=== PATIENT | female | born 1960 | race Caucasian/White ===

== ENCOUNTER 2018-08-10 08:31 | Emergency (ER) | payer MEDICARE, SELFPAY ==
[2018-08-10 08:35] VITALS: BP 141/99; PULSE 118; RESP 20; TEMP 36.9; O2SAT 98
--- NOTE | 2018-08-10 09:00 | DI.CT_ITS ---
SYMPTOM/DIAGNOSIS: DIFFUSE ABD PAIN, DIARRHEA ABDOMEN AND PELVIC CT: CT examination of the abdomen and pelvis was performed with a bolus infusion of 100 cc's of Omnipaque 350. Images obtained through the lung bases are unremarkable. There appears to be mild hepatic steatosis. Spleen is unremarkable in appearance. Pancreas appears normal. No biliary dilatation or gallbladder abnormality is seen. No abdominal or pelvic adenopathy is seen. No significant abdominal wall hernia is seen. Adrenals and kidneys are unremarkable except for apparent incidental small left renal cyst. There is a small quantity of free fluid in the pelvis. There is diffuse colonic wall edema and subtle pericolonic fat edema, particularly in the region of the ascending colon. There is wall edema of the terminal ileum and to a lesser degree possibly portions of additional small bowel as well. The findings are consistent with colitis and enteritis, consider Crohn's disease. Abdominal aorta is of normal diameter and no major vascular abnormality is seen. CONCLUSION: Findings suggesting colitis and enteritis with prominent involvement of the terminal ileum, consider Crohn's disease.
--- NOTE | 2018-08-10 09:05 | W.ED.GENAD ---
Discharge Plan Disposition Patient Disposition: HOME Condition: Improving Discharge Details Chief Complaint: Abd Prob Clinical Impression: Colitis Primary Care Provider: Bunny Anguiano ED Provider: Sarah Cottrell Home Meds and New Rx's Prescriptions: New hydrocodone-acetaminophen 5-325 mg tablet 1 tab PO Q6H PRN (Reason: pain) Qty: 10 RF: 0 Continue omeprazole 20 MG capsule,delayed release(DR/EC) 1 cap PO DAILY RF: 0 Discharge Instructions Instructions: Gastroenteritis (ED), Colitis (ED) Additional Instructions: Drink plenty of fluids and get plenty of rest. Eat a bland diet of crackers, toast, rice, applesauce to help with your diarrhea. You should receive a call from care management regarding a follow-up appointment with your primary care doctor within the next 1-2 days. Return immediately to the emergency department any worsening or new concerning symptoms. Discharge Data Discharge Date/Time-TO BE ENTERED AT DEPARTURE: 08/10/18 12:24 Discharge Physician: Sarah Cottrell Medical Decision Making 57-year-old female who presents with constant crampy diffuse abdominal pain and watery brown diarrhea for the past 2 days. One episode of vomiting. Blood pressure hypertensive, heart rate tachycardic, otherwise vitals within normal limits. Afebrile. Patient appears nontoxic but she is uncomfortable. She has mild distention and diffuse mild to moderate tenderness to palpation. No h/o abdominal surgeries. Likely consistent with acute gastroenteritis. Will obtain a CT, lab work, and urinalysis to r/o acute abd process, bolus IV fluids. Patient cannot take Toradol due to history of ulcers. Will give a dose of morphine and reassess. She has an allergy to oxycodone which causes rash but she has tolerated morphine in past w/o reaction. 1025 -- d/w radiologist Dr. Oconnell -marked wall edema noted throughout colon, specifically terminal ileum likely c/w colitis. If patient has any previous history of frequent diarrhea or abdominal pain, raise concern about possible Crohn's. Pt denied h/o frequent abdominal pain or diarrhea. She states she feels much better, pain decreased from 10/10 to 2/10. Patient will attempt to take PO. Labs reviewed and WBC 14, blood in urine, and trace ketones and high specific gravity likely c/w mild dehydration. No history of fever, recent travel, or bloody diarrhea, so I do not see any indication for antibiotics at this time. 1055 -- pt c/o return of pain upon sitting up. Will give a dose of vicodin - no h/o allergy. 1145 --patient feels much better and she is requesting to go home. She was able to take sips of water and eat crackers. Patient was able to give a stool sample. Will arrange for care management to make an appointment with her primary care doctor within the next few days for reevaluation. Patient instructed to return here if worse. HPI General Mode of arrival: ambulatory. Date/Time Provider Initiated Documentation: 08/10/18 08:44. Limitations to Documentation: no limitations. Information obtained by: patient. HPI Narrative: Patient is a 49-year-old female presents with diffuse constant crampy abdominal pain for the past 2 days. Denies aggravating or alleviating factors. States the pain is currently 10/10. She has been drinking normally but admits to decreased appetite. She states she vomited after drinking milk. She states she is lactose intolerant. She does admit to watery brown diarrhea every 1-2 hours last episode occurring a couple minutes ago here in the ED. She denies any nausea at present. She denies fever, urinary symptoms, rectal bleeding, recent antibiotics, recent travel, recent surgery or sick contacts. He has not taken any medications for her symptoms. Past medical history: Hypertension, hyperlipidemia migraines, PUD Surgical history: Carpal tunnel release, right hip replacement, left shoulder surgery Social history: Smokes tobacco, occasional beer, none recently, denies drugs Medications: Prilosec Allergies: Percocet (rash) PCP: Dr. Anguiano Related Data Home Medications Medication Instructions Recorded Confirmed omeprazole 1 cap PO DAILY 08/14/16 08/10/18 hydrocodone-acetaminophen 1 tab PO Q6H PRN #10 tab 08/10/18 Previous Rx's Medication Instructions Recorded hydrocodone-acetaminophen 1 tab PO Q6H PRN #10 tab 08/10/18 Allergies Allergy/AdvReac Type Severity Reaction Status Date / Time oxycodone HCl [From Percocet] Allergy Unknown Skin Rash Unverified 05/26/18 13:18 banana AdvReac GI upset Unverified 05/26/18 13:18 egg AdvReac GI upset Unverified 05/26/18 13:18 lactose AdvReac GI upset Unverified 05/26/18 13:18 General Stated Complaint: Abd Prob JAYME: 3 Review of Systems Review of Systems All systems reviewed & are unremarkable except as noted in HPI and below Constitutional Denies chills, Denies excessive sweating, Denies fatigue, Denies fever(s), Denies weakness and Denies weight loss Eyes Reports system reviewed and no additional complaints, except as docu and Denies blurry vision ENT Denies vertigo, Denies dizziness, Denies otalgia, Denies nasal congestion, Denies sore throat and Denies throat swelling Cardiovascular Denies chest pain, Denies syncope, Denies rapid heart rate and Denies dyspnea Respiratory Denies dyspnea Gastrointestinal Reports abdominal pain, Reports diarrhea and Reports vomiting Genitourinary Denies hematuria, Denies dysuria and Denies flank pain Musculoskeletal Denies back pain and Denies joint swelling Integumentary/Breasts Denies lesions and Denies rash Neurologic Denies behavioral changes, Denies confusion, Denies vertigo, Denies dizziness, Denies syncope and Denies weakness Psychiatric Denies behavioral changes, Denies confusion and Denies depression Endocrine Denies excessive sweating and Denies fatigue Hematologic/Lymphatic Denies easy bruising and Denies lymphadenopathy Allergic/Immunologic Denies throat swelling [facility] Medical History Arthritis Gastritis Restrictive lung disease Shoulder pain Social History Smoking/Tobacco Use Status: Current every day Surgical History EGD - MAC (08/27/17) Exam Const General: cooperative and healthy appearing Orientation: alert and awake HENCT Head: normal to inspection Ears: hearing grossly normal bilaterally and external ears normal General nose exam: external nose normal Face and sinus: normal facial exam Mouth: oral mucosae normal Eyes General: appearance normal, both eyes and all related structures Eyelids: eyelids normal EOM: EOM intact bilaterally Neck Neck: normal visual inspection Lymphatic: no lymphadenopathy noted Chest Chest: normal inspection of the chest Resp Effort & Inspection: normal respiratory effort and able to speak in complete sentences Auscultation: clear to auscultation bilaterally Cardio Rate: regular rate Rhythm: regular rhythm GI Inspection: normal to inspection and distended (mild) Palpation: soft, not firm, no guarding, no hepatosplenomegaly, no masses and tender (diffuse mild to moderate) Auscultation: hyperactive bowel sounds Skin General skin exam: no rashes or lesions noted Neuro General: alert and awake Cognition: normal cognition Speech: speech normal Gait: normal gait Motor: muscle tone normal throughout Sensory Exam: no sensory deficits noted Extrem General: normal to inspection, full ROM, normal capillary refill and no edema Psych Appearance: grossly normal Mental Status: mental status grossly normal Speech and Movement: speech and movement normal Affect: normal affect Thought Process: normal Course Vital Signs Temperature 98.4 F 08/10/18 08:35 Pulse 118 H 08/10/18 08:35 Respiratory Rate 20 08/10/18 08:35 Blood Pressure 141/99 H 08/10/18 08:35 Pulse Oximetry 98 08/10/18 08:35 Temperature 98.4 F 08/10/18 08:35 Temperature Source Temporal Artery Scan 08/10/18 08:35 Pulse 118 H 08/10/18 08:35 Respiratory Rate 20 08/10/18 08:35 Respiratory Effort 08/10/18 08:41 Blood Pressure 141/99 H 08/10/18 08:35 Blood Pressure Position Sitting 08/10/18 08:35 Pulse Oximetry 98 08/10/18 08:35 Oxygen Delivery Method Room Air 08/10/18 08:35 Oxygen Flow Rate 0 08/10/18 08:35 Pain Level 10 08/10/18 08:35
[2018-08-10] MEDS: Normal Saline 1,000 ML 1000 ML IV (09:09)
--- NOTE | 2018-08-10 09:12 | ED.GENADUL_ITS ---
Discharge Plan Disposition Patient Disposition: HOME Condition: Improving Discharge Details Chief Complaint: Abd Prob Clinical Impression: Colitis Primary Care Provider: Bunny Anguiano ED Provider: Sarah Cottrell Home Meds and New Rx's Prescriptions: New hydrocodone-acetaminophen 5-325 mg tablet 1 tab PO Q6H PRN (Reason: pain) Qty: 10 RF: 0 Continue omeprazole 20 MG capsule,delayed release(DR/EC) 1 cap PO DAILY RF: 0 Discharge Instructions Instructions: Gastroenteritis (ED), Colitis (ED) Additional Instructions: Drink plenty of fluids and get plenty of rest. Eat a bland diet of crackers, toast, rice, applesauce to help with your diarrhea. You should receive a call from care management regarding a follow-up appointment with your primary care doctor within the next 1-2 days. Return immediately to the emergency department any worsening or new concerning symptoms. Discharge Data Discharge Date/Time-TO BE ENTERED AT DEPARTURE: 08/10/18 12:24 Discharge Physician: Sarah Cottrell Medical Decision Making 57-year-old female who presents with constant crampy diffuse abdominal pain and watery brown diarrhea for the past 2 days. One episode of vomiting. Blood pressure hypertensive, heart rate tachycardic, otherwise vitals within normal limits. Afebrile. Patient appears nontoxic but she is uncomfortable. She has mild distention and diffuse mild to moderate tenderness to palpation. No h/o abdominal surgeries. Likely consistent with acute gastroenteritis. Will obtain a CT, lab work, and urinalysis to r/o acute abd process, bolus IV fluids. Patient cannot take Toradol due to history of ulcers. Will give a dose of morphine and reassess. She has an allergy to oxycodone which causes rash but she has tolerated morphine in past w/o reaction. 1025 -- d/w radiologist Dr. Oconnell -marked wall edema noted throughout colon, specifically terminal ileum likely c/w colitis. If patient has any previous history of frequent diarrhea or abdominal pain, raise concern about possible Crohn's. Pt denied h/o frequent abdominal pain or diarrhea. She states she feels much better, pain decreased from 10/10 to 2/10. Patient will attempt to take PO. Labs reviewed and WBC 14, blood in urine, and trace ketones and high specific gravity likely c/w mild dehydration. No history of fever, recent travel, or bloody diarrhea, so I do not see any indication for antibiotics at this time. 1055 -- pt c/o return of pain upon sitting up. Will give a dose of vicodin - no h/o allergy. 1145 --patient feels much better and she is requesting to go home. She was able to take sips of water and eat crackers. Patient was able to give a stool sample. Will arrange for care management to make an appointment with her primary care doctor within the next few days for reevaluation. Patient instructed to return here if worse. HPI General Mode of arrival: ambulatory . Date/Time Provider Initiated Documentation: 08/10/18 08:44 . Limitations to Documentation: no limitations . Information obtained by: patient . HPI Narrative: Patient is a 49-year-old female presents with diffuse constant crampy abdominal pain for the past 2 days. Denies aggravating or alleviating factors. States the pain is currently 10/10. She has been drinking normally but admits to decreased appetite. She states she vomited after drinking milk. She states she is lactose intolerant. She does admit to watery brown diarrhea every 1-2 hours last episode occurring a couple minutes ago here in the ED. She denies any nausea at present. She denies fever, urinary symptoms, rectal bleeding, recent antibiotics, recent travel, recent surgery or sick contacts. He has not taken any medications for her symptoms. Past medical history: Hypertension, hyperlipidemia migraines, PUD Surgical history: Carpal tunnel release, right hip replacement, left shoulder surgery Social history: Smokes tobacco, occasional beer, none recently, denies drugs Medications: Prilosec Allergies: Percocet (rash) PCP: Dr. Anguiano Related Data Home Medications Medication Instructions Recorded Confirmed omeprazole 1 cap PO DAILY 08/14/16 08/10/18 hydrocodone-acetaminophen 1 tab PO Q6H PRN #10 tab 08/10/18 Previous Rx's Medication Instructions Recorded hydrocodone-acetaminophen 1 tab PO Q6H PRN #10 tab 08/10/18 Allergies Allergy/AdvReac Type Severity Reaction Status Date / Time oxycodone HCl [From Percocet] Allergy Unknown Skin Rash Unverified 05/26/18 13: 18 banana AdvReac GI upset Unverified 05/26/18 13:18 egg AdvReac GI upset Unverified 05/26/18 13:18 lactose AdvReac GI upset Unverified 05/26/18 13:18 General Stated Complaint: Abd Prob JAYME: 3 Review of Systems Review of Systems All systems reviewed & are unremarkable except as noted in HPI and below Constitutional Denies chills, Denies excessive sweating, Denies fatigue, Denies fever(s), Denies weakness and Denies weight loss Eyes Reports system reviewed and no additional complaints, except as docu and Denies blurry vision ENT Denies vertigo, Denies dizziness, Denies otalgia, Denies nasal congestion, Denies sore throat and Denies throat swelling Cardiovascular Denies chest pain, Denies syncope, Denies rapid heart rate and Denies dyspnea Respiratory Denies dyspnea Gastrointestinal Reports abdominal pain, Reports diarrhea and Reports vomiting Genitourinary Denies hematuria, Denies dysuria and Denies flank pain Musculoskeletal Denies back pain and Denies joint swelling Integumentary/Breasts Denies lesions and Denies rash Neurologic Denies behavioral changes, Denies confusion, Denies vertigo, Denies dizziness, Denies syncope and Denies weakness Psychiatric Denies behavioral changes, Denies confusion and Denies depression Endocrine Denies excessive sweating and Denies fatigue Hematologic/Lymphatic Denies easy bruising and Denies lymphadenopathy Allergic/Immunologic Denies throat swelling [facility] Medical History Arthritis Gastritis Restrictive lung disease Shoulder pain Social History Smoking/Tobacco Use Status: Current every day Surgical History EGD - MAC (08/27/17) Exam Const General: cooperative and healthy appearing Orientation: alert and awake HENPA Head: normal to inspection Ears: hearing grossly normal bilaterally and external ears normal General nose exam: external nose normal Face and sinus: normal facial exam Mouth: oral mucosae normal Eyes General: appearance normal, both eyes and all related structures Eyelids: eyelids normal EOM: EOM intact bilaterally Neck Neck: normal visual inspection Lymphatic: no lymphadenopathy noted Chest Chest: normal inspection of the chest Resp Effort & Inspection: normal respiratory effort and able to speak in complete sentences Auscultation: clear to auscultation bilaterally Cardio Rate: regular rate Rhythm: regular rhythm GI Inspection: normal to inspection and distended (mild) Palpation: soft, not firm, no guarding, no hepatosplenomegaly, no masses and tender (diffuse mild to moderate) Auscultation: hyperactive bowel sounds Skin General skin exam: no rashes or lesions noted Neuro General: alert and awake Cognition: normal cognition Speech: speech normal Gait: normal gait Motor: muscle tone normal throughout Sensory Exam: no sensory deficits noted Extrem General: normal to inspection, full ROM, normal capillary refill and no edema Psych Appearance: grossly normal Mental Status: mental status grossly normal Speech and Movement: speech and movement normal Affect: normal affect Thought Process: normal Course Vital Signs Temperature 98.4 F 08/10/18 08:35 Pulse 118 H 08/10/18 08:35 Respiratory Rate 20 08/10/18 08:35 Blood Pressure 141/99 H 08/10/18 08:35 Pulse Oximetry 98 08/10/18 08:35 Temperature 98.4 F 08/10/18 08:35 Temperature Source Temporal Artery Scan 08/10/18 08:35 Pulse 118 H 08/10/18 08:35 Respiratory Rate 20 08/10/18 08:35 Respiratory Effort 08/10/18 08:41 Blood Pressure 141/99 H 08/10/18 08:35 Blood Pressure Position Sitting 08/10/18 08:35 Pulse Oximetry 98 08/10/18 08:35 Oxygen Delivery Method Room Air 08/10/18 08:35 Oxygen Flow Rate 0 08/10/18 08:35 Pain Level 10 08/10/18 08:35
[2018-08-10 09:16] LABS: Abs Immature Grans 0.02 k/cumm (0.0-0.09); Absolute Basophil Count 0.01 k/cumm (0.0-0.2); Absolute Lymphocyte Count 0.92 k/cumm (1.2-3.4); Absolute Monocyte Count 0.79 k/cumm (0.11-0.7); Absolute Neutrophil Count 12.42 k/cumm (1.2-6.7); Basophils % 0.1; HGB 16.5 g/dL (12.0-15.5); Immature Grans % 0.1; Lymphocytes % 6.5; Mean Corp. HGB Concentration 33.7 g/dL (32.0-36.0); Mean Corpuscular Hemoglobin 31.3 pg (27.0-33.0); Monocytes % 5.6; Neutrophils % 87.7; Platelet Count 251 x1000/uL (130-400); RBC 5.27 m/cumm (4.00-5.20); RBC Distribution Width 12.6 % (11.7-14.6); White Blood Cell Count 14.16 k/cumm (4.4-10.8)
[2018-08-10 09:18] LABS: Bilirubin Small (Negative); Blood Moderate (Negative); Clarity Cloudy; Glucose Negative (Negative); Ketones Trace mg/dL (Negative); Leukocyte Esterase Negative (Negative); Nitrite Negative (Negative); Specific Gravity >= 1.030 (1.005-1.025); Urobilinogen 0.2 EU/dL (Up TO 0.2)
[2018-08-10 09:25] LABS: Bacteria Moderate HPF (Negative); C & S Indicated? No; Casts Negative LPF (Negative); Crystals Moderate Amorphous HPF (Negative); Epithelial Cells Many HPF (Negative); Mucus Heavy (Negative); RBC >50 (0-2)
[2018-08-10 09:26] LABS: ALT 21 U/L (12-78); AST 14 U/L (15-37); Albumin 3.5 g/dL (3.4-5.0); Alkaline Phosphatase 83 U/L (46-116); Anion Gap 10.1 mmol/L (3-11); BUN 9 mg/dL (7-18); Bilirubin, Total 0.4 mg/dL (0.2-1.0); CO2 27.9 mmol/L (21.0-32.0); CREATININE 0.94 mg/dL (0.55-1.02); Chloride 97 mmol/L (98-107); Glucose 144 mg/dL (70-100); Lipase 101 U/L (73-393); Potassium 3.7 mmol/L (3.5-5.1); Sodium 135 mmol/L (136-145); Total Protein 7.6 g/dL (6.4-8.2)
[2018-08-10] MEDS: Omnipaque 350 MG/ML 100 ML BTL IV (09:46)
[2018-08-10 10:46] VITALS: BP 129/80; PULSE 90; RESP 16; TEMP 37.1; O2SAT 96
--- NOTE | 2018-08-11 10:17 | PDOC.ERCMPRO ---
Care Management Progress Note 08/11-Dr. Cottrell requested assistance with a PCP f/u in the next few days for colitis. Dr. Anguiano is PCP. Referral faxed to [facility].
--- NOTE | 2018-08-11 10:19 | PDOC.ERCMPRO ---
Care Management Progress Note 08/11-Dr. Lynch requested assistance with a surgical f/u this week for an arm pit abscess. Referral faxed to [facility] this am.
--- NOTE | 2018-08-11 10:20 | CMPROGNOTE_ITS ---
Care Management Progress Note 08/11-Dr. Lynch requested assistance with a surgical f/u this week for an arm pit abscess. Referral faxed to [facility] this am.
[2018-08-12 10:56] LABS: Salmonella PCR SEE COMMENTS; Shiga Toxin PCR SEE COMMENTS; Shigella/Enteroinvasive Ecoli SEE COMMENTS
[2018-08-12 11:47] LABS: Campylobacter PCR SEE COMMENTS
== END 2018-08-10 12:24 | disposition home or self-care (01) ==
PROVIDERS: Emergency Provider Physician Assistant; PCP Family Medicine
DX: K52.9 Noninfective gastroenteritis and colitis, unspecified (principal); I10 Essential (primary) hypertension
CPT/HCPCS: 36415; 80053; 83690; 87505; 96361; 96374; 99285; 74177; 81003; 81015; 85025; J3490

== ENCOUNTER 2018-12-06 15:05 | Emergency (ER) | payer MEDICARE, SELFPAY ==
[2018-12-06 15:32] VITALS: BP 134/88; PULSE 80; RESP 16; TEMP 37.1; O2SAT 99
--- NOTE | 2018-12-06 15:52 | W.ED.GENAD ---
Discharge Plan Disposition Patient Disposition: HOME Condition: Stable Discharge Details Chief Complaint: RespSymp Clinical Impression: Cough Primary Care Provider: Bunny Anguiano ED Provider: Jere Lynch Home Meds and New Rx's Prescriptions: New prednisone 20 mg tablet 60 mg PO DAILY 4 Days Qty: 12 RF: 0 Continued omeprazole 20 MG capsule,delayed release(DR/EC) 1 cap PO DAILY RF: 0 hydrocodone-acetaminophen 5-325 mg tablet 1 tab PO Q6H PRN (Reason: pain) Qty: 10 RF: 0 Discharge Instructions Instructions: Acute Cough (ED) Additional Instructions: Follow up with your primary care provider within a week if not better If you feel you are worsening, having more difficulty breathing or high fevers return to the emergency department Medical Decision Making 58 yo female who initially states she has no chronic medical problems but then stated she is on an inhaler, who smokes daily, who comes in with chief complaint of cough for a week. Denies fevers, chest pain/pressure, has had a runny nose. She is speaking in full sentences in no distress with mild wheezing at the bases otherwise no focal findings. no fevers, appears well and has no focal findings so doubt pna at this time. I suspect copd exacerbation given her smoking history, will treat with steroids and abx given increased productive cough. I advised she f/u with her pcp within a week if not improving and return if worsening. She has no chest pain or pressure to suggest entities such as pe, acs or dissection. I did educate that overtime her lungs will worsen with her continued smoking, she became upset with this and didn't want to take my advise of smoking cessation but I did advise if she changes her mind to discuss options with her pcp Differential Diagnosis copd, pna, uri HPI General Mode of arrival: ambulatory. Date/Time Provider Initiated Documentation: 12/06/18 15:47. Limitations to Documentation: no limitations. Information obtained by: patient. History of Present Illness 58 year old F presents to the emergency department with the chief complaint of cough, described as moderate, Patient reports no radiation. Patient started experiencing this week(s) (1) and it has been constant. No relieving factors improve symptom(s), No exacerbating factors reported . Patient did receive the following treatments prior to arrival, none Related Data Home Medications Medication Instructions Recorded Confirmed omeprazole 1 cap PO DAILY 08/14/16 12/06/18 hydrocodone-acetaminophen 1 tab PO Q6H PRN #10 tab 08/10/18 12/06/18 prednisone 60 mg PO DAILY 4 Days #12 tab 12/06/18 Previous Rx's Medication Instructions Recorded hydrocodone-acetaminophen 1 tab PO Q6H PRN #10 tab 08/10/18 prednisone 60 mg PO DAILY 4 Days #12 tab 12/06/18 Allergies Allergy/AdvReac Type Severity Reaction Status Date / Time oxycodone HCl [From Percocet] Allergy Unknown Skin Rash Unverified 12/06/18 15:34 banana AdvReac GI upset Unverified 12/06/18 15:34 egg AdvReac GI upset Unverified 12/06/18 15:34 lactose AdvReac GI upset Unverified 12/06/18 15:34 General Stated Complaint: RespSymp JAYME: 3 Review of Systems Review of Systems All systems reviewed & are unremarkable except as noted in HPI and below Constitutional Denies chills and Denies fever(s) ENT Denies change in voice Cardiovascular Denies chest pain Gastrointestinal Denies abdominal pain, Denies nausea and Denies vomiting Genitourinary Denies dysuria Musculoskeletal Denies joint swelling Integumentary/Breasts Denies rash PFSH Medical History Arthritis Gastritis Restrictive lung disease Shoulder pain Surgical History EGD - MAC (08/27/17) Social History Smoking and Tabacco status: Current every day Exam Const General: no acute distress Orientation: alert [facility] Head: normal to inspection Ears: external ears normal General nose exam: external nose normal Mouth: moist mucous membranes Eyes General: appearance normal, both eyes and all related structures Neck Neck: normal visual inspection Resp Effort & Inspection: normal respiratory effort and able to speak in complete sentences Cardio Rate: regular rate Skin General skin exam: no rashes or lesions noted Neuro General: alert and oriented x3 Extrem General: normal to inspection Psych Mental Status: mental status grossly normal Course Vital Signs Temperature 37.1 C 12/06/18 15:32 Pulse 80 12/06/18 15:32 Respiratory Rate 16 12/06/18 15:32 Blood Pressure 134/88 12/06/18 15:32 Pulse Oximetry 99 12/06/18 15:32 Temperature 37.1 C 12/06/18 15:32 Temperature Source Oral 12/06/18 15:32 Pulse 80 12/06/18 15:32 Respiratory Rate 16 12/06/18 15:32 Respiratory Effort Non-Labored 12/06/18 15:32 Blood Pressure 134/88 12/06/18 15:32 Blood Pressure Position Sitting 12/06/18 15:32 Pulse Oximetry 99 12/06/18 15:32 Oxygen Delivery Method Room Air 12/06/18 15:32 Oxygen Flow Rate 0 12/06/18 15:32 Pain Level 7 12/06/18 15:32
--- NOTE | 2018-12-06 15:57 | ED.GENADUL_ITS ---
Discharge Plan Disposition Patient Disposition: HOME Condition: Stable Discharge Details Chief Complaint: RespSymp Clinical Impression: Cough Primary Care Provider: Bunny Anguiano ED Provider: Jere Lynch Home Meds and New Rx's Prescriptions: New prednisone 20 mg tablet 60 mg PO DAILY 4 Days Qty: 12 RF: 0 Continued omeprazole 20 MG capsule,delayed release(DR/EC) 1 cap PO DAILY RF: 0 hydrocodone-acetaminophen 5-325 mg tablet 1 tab PO Q6H PRN (Reason: pain) Qty: 10 RF: 0 Discharge Instructions Instructions: Acute Cough (ED) Additional Instructions: Follow up with your primary care provider within a week if not better If you feel you are worsening, having more difficulty breathing or high fevers return to the emergency department Medical Decision Making 58 yo female who initially states she has no chronic medical problems but then stated she is on an inhaler, who smokes daily, who comes in with chief complaint of cough for a week. Denies fevers, chest pain/pressure, has had a runny nose. She is speaking in full sentences in no distress with mild wheezing at the bases otherwise no focal findings. no fevers, appears well and has no focal findings so doubt pna at this time. I suspect copd exacerbation given her smoking hist ory, will treat with steroids and abx given increased productive cough. I advised she f/u with her pcp within a week if not improving and return if worsening. She has no chest pain or pressure to suggest entities such as pe, acs or dissection. I did educate that overtime her lungs will worsen with her continued smoking, she became upset with this and didn't want to take my advise of smoking cessation but I did advise if she changes her mind to discuss options with her pcp Differential Diagnosis copd, pna, uri HPI General Mode of arrival: ambulatory . Date/Time Provider Initiated Documentation: 12/06/18 15:47 . Limitations to Documentation: no limitations . Information obtained by: patient . History of Present Illness 58 year old F presents to the emergency department with the chief complaint of cough, described as moderate, Patient reports no radiation. Patient started experiencing this week(s) (1) and it has been constant. No relieving factors improve symptom(s), No exacerbating factors reported . Patient did receive the following treatments prior to arrival, none Related Data Home Medications Medication Instructions Recorded Confirmed omeprazole 1 cap PO DAILY 08/14/16 12/06/18 hydrocodone-acetaminophen 1 tab PO Q6H PRN #10 tab 08/10/18 12/06/18 prednisone 60 mg PO DAILY 4 Days #12 tab 12/06/18 Previous Rx's Medication Instructions Recorded hydrocodone-acetaminophen 1 tab PO Q6H PRN #10 tab 08/10/18 prednisone 60 mg PO DAILY 4 Days #12 tab 12/06/18 Allergies Allergy/AdvReac Type Severity Reaction Status Date / Time oxycodone HCl [From Percocet] Allergy Unknown Skin Rash Unverified 12/06/18 15:34 banana AdvReac GI upset Unverified 12/06/18 15:34 egg AdvReac GI upset Unverified 12/06/18 15:34 lactose AdvReac GI upset Unverified 12/06/18 15:34 General Stated Complaint: RespSymp JAYME: 3 Review of Systems Review of Systems All systems reviewed & are unremarkable except as noted in HPI and below Constitutional Denies chills and Denies fever(s) ENT Denies change in voice Cardiovascular Denies chest pain Gastrointestinal Denies abdominal pain, Denies nausea and Denies vomiting Genitourinary Denies dysuria Musculoskeletal Denies joint swelling Integumentary/Breasts Denies rash PFSH Medical History Arthritis Gastritis Restrictive lung disease Shoulder pain Surgical History EGD - [facility] (08/27/17) Social History Smoking and Tabacco status: Current every day Exam Const General: no acute distress Orientation: alert [facility] Head: normal to inspection Ears: external ears normal General nose exam: external nose normal Mouth: moist mucous membranes Eyes General: appearance normal, both eyes and all related structures Neck Neck: normal visual inspection Resp Effort & Inspection: normal respiratory effort and able to speak in complete sentences Cardio Rate: regular rate Skin General skin exam: no rashes or lesions noted Neuro General: alert and oriented x3 Extrem General: normal to inspection Psych Mental Status: mental status grossly normal Course Vital Signs Temperature 37.1 C 12/06/18 15:32 Pulse 80 12/06/18 15:32 Respiratory Rate 16 12/06/18 15:32 Blood Pressure 134/88 12/06/18 15:32 Pulse Oximetry 99 12/06/18 15:32 Temperature 37.1 C 12/06/18 15:32 Temperature Source Oral 12/06/18 15:32 Pulse 80 12/06/18 15:32 Respiratory Rate 16 12/06/18 15:32 Respiratory Effort Non-Labored 12/06/18 15:32 Blood Pressure 134/88 12/06/18 15:32 Blood Pressure Position Sitting 12/06/18 15:32 Pulse Oximetry 99 12/06/18 15:32 Oxygen Delivery Method Room Air 12/06/18 15:32 Oxygen Flow Rate 0 12/06/18 15:32 Pain Level 7 12/06/18 15:32
[2018-12-06] MEDS: LEVOFLOXACIN 500 MG, LEVOFLOXACIN 250 MG 750 MG PO (16:00)
[2018-12-06] MEDS: predniSONE 20 MG TAB 60 MG PO (16:00)
== END 2018-12-06 16:45 | disposition home or self-care (01) ==
LOC: ER 16:01
PROVIDERS: Emergency Provider Emergency Medicine; PCP Family Medicine
DX: R05 Cough (principal); J98.4 Other disorders of lung; F17.210 Nicotine dependence, cigarettes, uncomplicated
CPT/HCPCS: 99283; J7512

== ENCOUNTER 2019-02-03 00:22 | Emergency (ER) | payer MEDICARE, MEDICAID, SELFPAY ==
[2019-02-03 00:25] VITALS: BP 165/91; PULSE 98; RESP 20; TEMP 36.8; O2SAT 96
--- NOTE | 2019-02-03 00:30 | W.ED.GENAD ---
Discharge Plan Disposition Patient Disposition: HOME Condition: Good Discharge Details Chief Complaint: RespSymp Clinical Impression: COPD exacerbation, Bronchitis Primary Care Provider: Bunny Anguiano ED Provider: Justen Bull Home Meds and New Rx's Prescriptions: New prednisone 50 MG tablet 50 mg PO DAILY Qty: 5 RF: 0 doxycycline hyclate 100 mg capsule 100 mg PO BID Qty: 20 RF: 0 albuterol sulfate 90 mcg/actuation HFA aerosol inhaler 1 puff IH Q6H PRN (Reason: shortness of breath or wheezing) Qty: 8 RF: 0 No Action omeprazole 20 MG capsule,delayed release(DR/EC) 1 cap PO DAILY RF: 0 Restasis 0.05 % Dropperette 1 drp OPHTHALMIC (EYE) Q12H RF: 0 Discharge Instructions Instructions: Acute Bronchitis (ED), COPD (Chronic Obstructive Pulmonary Disease) (ED) Additional Instructions: Please take the doxycycline as directed as well as the steroid prednisone as directed. Please use your inhaler every 4 hours for the next 2 days, after this you can switch to 1-2 puffs every 6 hours if you notice any worsening of your symptoms, or any new symptoms such as vomiting, diarrhea, fever, chills, shortness of breath, chest pain, numbness, weakness, or fainting , please return immediately to the emergency department for reevaluation. Please follow up with your primary care provider as soon as possible for reassessment and reevaluation. As always, it was a pleasure participating in your medical care today. . Referrals: Suzi Irving NP [NURSE PRACTITIONER] - Discharge Data Discharge Date/Time-TO BE ENTERED AT DEPARTURE: 02/03/19 02:20 Medical Decision Making This is a 58-year-old female who presents with 1 week of cough with mild productivity, in conjunction with wheeze, and shortness of breath. Her symptoms have persisted and are not getting better with her inhaler at this time. She also developed a mild amount of bandlike chest pain this evening during notable coughing episodes. Physical exam demonstrates coarse breath sounds, notable wheezes, however vital signs are otherwise notably reassuring. She has no history of cardiac disease. She does still smoke though and does have some cardiac risk factors for sure. Although her signs and symptoms are clinically consistent with a respiratory component rather than ACS will certainly do a cardiac workup in addition to evaluating for and treating for COPD and evaluating for pneumonia. 2:07 AM EKG is benign, laboratory workup demonstrates no elevation in troponin, or other significant abnormality. Chest x-ray shows no severe consolidation, repeat auscultation of her lungs demonstrates notably improved breath sounds, with complete resolution of the wheeze. Vital signs continue to remain reassuring with no tachycardia, hypoxemia, or signs of respiratory distress. I feel the patient signs and symptoms are clinically consistent with a COPD exacerbation in conjunction with probable bronchitis versus mild pneumonia. We will give a prescription for doxycycline, recommend inhaler every 4 hours at home, and outpatient steroids. Signs and symptoms are clinically inconsistent with ACS at this time with normal EKG, troponin, and clinical history consistent with COPD and bronchitis rather than another etiology. With notable improvement of her symptoms with breathing treatments, patient will be discharged home and given her first dose of doxycycline here I have extensively reviewed the treatment plan and discharge instructions with the patient. I have addressed all patient concerns at this time. The patient was made aware of what symptoms to monitor for that would warrant a return to the emergency department. Discussed the plan with the patient, they demonstrate verbal understanding and agreement with our assessment and plan at this time. . EKG 00: 34 Rate 81, intervals normal, sinus rhythm, no ST elevations or depressions, no significant Q waves. Single inverted T wave in V1 FINDINGS: Lungs: Unremarkable. No consolidation. Pleural space: Unremarkable. No pleural effusion. No pneumothorax. Heart/Mediastinum: Unremarkable. No cardiomegaly. Bones/joints: Unremarkable. IMPRESSION: No acute findings. Thank you for allowing us to participate in the care of your patient. Dictated and Authenticated by: Jere Nance MD [facility] General Date/Time Provider Initiated Documentation: 02/03/19 00:22. [facility] Narrative: This is a 58-year-old female with past medical history of COPD, chronic tobacco abuse, who presents today for evaluation of cough, shortness of breath, and mild chest pain. Patient states that for the last week she has had a cough with productive clear sputum that is continued to worsen. She has been taking her inhalers but these have not been helping as of late. Tonight she developed a bandlike chest pain-like sensation, it is nonexertional, it is present with coughing more so in breathing minimally. She denies any hemoptysis, recent long trips, recent surgeries, or history of blood clots. She does not use exogenous estrogen. She denies any vomiting, diarrhea, arm, neck, or shoulder pain. She denies any headache, vision changes, or neck pain. She has no other complaints or modifying factors. She denies any history of cardiac disease. She has not been admitted recently, nor she has she been on antibiotics recently. Related Data Home Medications Medication Instructions Recorded Confirmed omeprazole 1 cap PO DAILY 08/14/16 02/03/19 albuterol sulfate 1 puff IH Q6H PRN #8 gm 02/03/19 cyclosporine [Restasis] 1 drp OPHTHALMIC (EYE) Q12H 02/03/19 02/03/19 doxycycline hyclate 100 mg PO BID #20 cap 02/03/19 prednisone 50 mg PO DAILY #5 tab 02/03/19 Previous Rx's Medication Instructions Recorded albuterol sulfate 1 puff IH Q6H PRN #8 gm 02/03/19 doxycycline hyclate 100 mg PO BID #20 cap 02/03/19 prednisone 50 mg PO DAILY #5 tab 02/03/19 Allergies Allergy/AdvReac Type Severity Reaction Status Date / Time oxycodone HCl [From Percocet] Allergy Unknown Skin Rash Unverified 02/03/19 00:28 banana AdvReac GI upset Unverified 02/03/19 00:28 egg AdvReac GI upset Unverified 02/03/19 00:28 lactose AdvReac GI upset Unverified 02/03/19 00:28 General Stated Complaint: RespSymp JAYME: 3 Review of Systems Review of Systems All systems reviewed & are unremarkable except as noted in HPI and below PFSH Social History Smoking/Tobacco Use Status: Current every day Tobacco Type: cigarettes Alcohol Intake: never Drug use: Never Do you feel safe in your relationship?: Yes Exam Narrative Exam Narrative: 1.Const: Well-nourished, Well-developed, appearing stated age 2.Eyes: PERRL, no conjunctival injection, and symmetrical lids. 3.ENT: Atraumatic external nose and ears. Moist MM. Neck: Symmetric, trachea midline, No thyromegaly. 4.CVS: +S1/S2, No murmurs or gallops. Peripheral pulses 2+ and equal in all extremities. Brisk capillary refill in all extremities. 5.RESP: Reduced breath sounds throughout, notable wheezes throughout. Minimal crackles. No rhonchi. No significant reproducible component of her chest pain 6.GI: Soft, Nontender/Nondistended, No hepatosplenomegaly. No guarding or rebound. 7.MSK: Normocephalic/Atraumatic, Extremities w/o deformity or ttp No cyanosis or clubbing, Normal movement of all extremities 8.Skin: Warm, Dry. No rashes or lesions. 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 Sensation grossly intact, no focal neurologic deficits. 10.Psych: (AAO) x3. Appropriate mood and affect Course Vital Signs Temperature 36.8 C 02/03/19 00:25 Pulse 98 H 02/03/19 00:25 Respiratory Rate 20 02/03/19 00:25 Blood Pressure 165/91 H 02/03/19 00:25 Pulse Oximetry 96 02/03/19 00:25 Temperature 36.8 C 02/03/19 00:25 Temperature Source Skin 02/03/19 00:25 Pulse 98 H 02/03/19 00:25 Respiratory Rate 20 02/03/19 00:25 Blood Pressure 165/91 H 02/03/19 00:25 Blood Pressure Position Sitting 02/03/19 00:25 Pulse Oximetry 96 02/03/19 00:25 Oxygen Delivery Method Room Air 02/03/19 00:25 Oxygen Flow Rate 0 02/03/19 00:25 Pain Level 2 02/03/19 00:25
[2019-02-03] MEDS: Albuterol/Ipratropium 3 ML UPD VIAL 6 ML UPD (00:44)
[2019-02-03] MEDS: methylPREDNISolone SUCC 125 MG VIAL IVP (00:44)
[2019-02-03 00:54] LABS: Abs Immature Grans 0.04 k/cumm (0.0-0.09); Absolute Basophil Count 0.01 k/cumm (0.0-0.2); Absolute Eosinophil Count 0.19 k/cumm (0.0-0.7); Absolute Lymphocyte Count 3.49 k/cumm (1.2-3.4); Absolute Monocyte Count 0.71 k/cumm (0.11-0.7); Absolute Neutrophil Count 3.47 k/cumm (1.2-6.7); Basophils % 0.1; Eosinophils % 2.4; HCO3 (Venous) 27 mmol/L (22-28); HCT 43.5 % (36.0-46.0); HGB 14.6 g/dL (12.0-15.5); Immature Grans % 0.5; Lymphocytes % 44.1; Mean Corp. HGB Concentration 33.6 g/dL (32.0-36.0); Mean Corpuscular Hemoglobin 31.3 pg (27.0-33.0); Mean Corpuscular Volume 93.1 fL (80-95); Mean Platelet Volume 10.5 fL (8.0-11.0); Neutrophils % 43.9; O2 Sat (Venous) 71 % (70-80); Platelet Count 303 x1000/uL (130-400); RBC 4.67 m/cumm (4.00-5.20); RBC Distribution Width 12.9 % (11.7-14.6); TCO2 (Venous) 25 mmol/L (22-29); White Blood Cell Count 7.91 k/cumm (4.4-10.8); pCO2 (Venous) 48 mm/Hg (34-47); pH (Venous) 7.37 (7.32-7.43); pO2 (Venous) 35 mm/Hg (28-44)
[2019-02-03 01:12] LABS: ALT 25 U/L (12-78); AST 15 U/L (15-37); Albumin 3.6 g/dL (3.4-5.0); Alkaline Phosphatase 88 U/L (46-116); Anion Gap 7.8 mmol/L (3-11); BUN 7 mg/dL (7-18); Bilirubin, Total 0.3 mg/dL (0.2-1.0); CO2 28.2 mmol/L (21.0-32.0); CREATININE 0.81 mg/dL (0.55-1.02); Calcium 8.6 mg/dL (8.5-10.1); Chloride 107 mmol/L (98-107); Glucose 137 mg/dL (70-100); Potassium 3.8 mmol/L (3.5-5.1); Sodium 143 mmol/L (136-145); Total Protein 6.7 g/dL (6.4-8.2)
[2019-02-03 01:15] LABS: Troponin I < 0.02 ng/mL (0.00-0.06)
[2019-02-03 01:20] VITALS: BP 138/69; PULSE 89; RESP 20; TEMP 37.3; O2SAT 95
--- NOTE | 2019-02-03 01:40 | DI.RAD_ITS ---
SYMPTOM/DIAGNOSIS: SOB, COUGH,WHEEZE PA AND LATERAL CHEST: Comparison is made with 03/05/17. The heart is normal in size. The lungs are clear. The mediastinal structures and pleura appear intact. CONCLUSION: Normal chest.
[2019-02-03 02:01] VITALS: BP 135/80; PULSE 82; RESP 20; TEMP 37; O2SAT 96
[2019-02-03] MEDS: Doxycycline Hyclate 100 MG CAP PO (02:08)
[2019-02-03] MEDS: Inhaler, Assist Device 1 EACH MC (02:21)
--- NOTE | 2019-02-03 03:19 | DI.VRAD_ITS ---
EXAM: XR Chest, 2 Views EXAM DATE/TIME: 02/03/2019 12:29 AM CLINICAL HISTORY: 58 years old, female; Signs and symptoms; Cough and shortness of breath and wheezing; Patient HX: Cough for a week, SOB, wheeze TECHNIQUE: Imaging protocol: XR of the chest, 2 views. COMPARISON: CR CHEST 2 VIEWS PA,LAT 03/05/2017 10:12 AM FINDINGS: Lungs: Unremarkable. No consolidation. Pleural space: Unremarkable. No pleural effusion. No pneumothorax. Heart/Mediastinum: Unremarkable. No cardiomegaly. Bones/joints: Unremarkable. IMPRESSION: No acute findings. Dictated and Authenticated by: Jere Nance MD. Ordering:MITZY Campuzano MD
== END 2019-02-03 02:20 | disposition home or self-care (01) ==
PROVIDERS: Emergency Provider Student in an Organized Health Care Education/Training Program; PCP Family Medicine
DX: J44.1 Chronic obstructive pulmonary disease with (acute) exacerbation (principal); J44.0 Chronic obstructive pulmonary disease with (acute) lower respiratory infection; F17.210 Nicotine dependence, cigarettes, uncomplicated
CPT/HCPCS: 36415; 80053; 82805; 93005; 94640; 96374; 99285; 71046; 84484; 85025; 93010; J2930; J7620

== ENCOUNTER 2019-04-17 09:21 | Outpatient (CLI) | payer MEDICARE, MEDICAID, SELFPAY ==
[2019-04-17 11:56] LABS: ALT 28 U/L (12-78); AST 15 U/L (15-37); Albumin 3.6 g/dL (3.4-5.0); Alkaline Phosphatase 86 U/L (46-116); Anion Gap 8.1 mmol/L (3-11); BUN 11 mg/dL (7-18); Bilirubin, Total 0.5 mg/dL (0.2-1.0); CO2 29.9 mmol/L (21.0-32.0); CREATININE 0.81 mg/dL (0.55-1.02); Calculated LDL 168; Chloride 108 mmol/L (98-107); Cholesterol 232 mg/dL (50-200); Glucose 95 mg/dL (70-100); HDL Cholesterol 41 mg/dL (40-60); Potassium 4.6 mmol/L (3.5-5.1); Sodium 146 mmol/L (136-145); Total Protein 6.5 g/dL (6.4-8.2); Triglyceride 118 mg/dL (30-150)
== END 2019-04-17 09:41 ==
PROVIDERS: PCP Nurse Practitioner; Visit Provider Nurse Practitioner
DX: E78.5 Hyperlipidemia, unspecified (principal); R73.01 Impaired fasting glucose
CPT/HCPCS: 36415; 80053; 80061; 83721; 83036

== ENCOUNTER 2019-04-27 00:17 | Outpatient (CLI) | payer MEDICARE, MEDICAID, SELFPAY ==
--- NOTE | 2019-04-27 12:56 | DI.MAMMO_ITS ---
SYMPTOM/DIAGNOSIS: SCREENING, Z12.31 MAMMOGRAMS: Mammograms were interpreted according to the usual protocol including computer analysis with CAD system, tomosynthesis and C view imaging. Comparison is made with exam from 2017. The breasts are composed of scattered fibroglandular densities, breast density, Category B. No suspicious or suspicious microcalcifications are seen. There has been no significant change. IMPRESSION: Category 1, negative mammogram. Yearly screening mammography is recommended. [facility] ASSESSMENT OF FINDINGS: Negative. Category 1. Patient will receive a letter notifying them of these results. BI-RADS category B. There are scattered areas of fibroglandular density.
== END 2019-04-27 00:37 ==
PROVIDERS: PCP Nurse Practitioner; Visit Provider Nurse Practitioner
DX: Z12.31 Encounter for screening mammogram for malignant neoplasm of breast (principal)
CPT/HCPCS: 77063; 77067

== ENCOUNTER 2019-05-14 00:55 | Outpatient (CLI) | payer MEDICARE, SELFPAY ==
--- NOTE | 2019-05-14 13:00 | DI.CTLCSR_ITS ---
SYMPTOMS/DIAGNOSIS: SMOKER, F17.210, SCREENING FOR LUNG CANCER LOW DOSE CHEST CT: There are emphysematous changes in the lungs. A 3.5 mm nodule is noted in the apex of the right lung. No other nodules are seen. There is no evidence of a pleural effusion. There is no evidence of hilar or mediastinal adenopathy. The heart is not enlarged. The aorta appears intact. SUMMARY: 3.5 mm right upper lobe nodule. Lung-RAD Category: Lung RADS Category 3- Probably Benign Follow up LDCT in 6 months.
== END 2019-05-14 01:15 ==
PROVIDERS: Visit Provider Nurse Practitioner
DX: F17.200 Nicotine dependence, unspecified, uncomplicated (principal); Z12.2 Encounter for screening for malignant neoplasm of respiratory organs; R91.8 Other nonspecific abnormal finding of lung field; R91.1 Solitary pulmonary nodule
CPT/HCPCS: G0297

== ENCOUNTER → 2019-07-02 08:56 | Outpatient (BNVA) | payer MEDICARE, MEDICAID, SELFPAY | PROVIDERS: PCP Nurse Practitioner; Referring Provider Nurse Practitioner; Visit Provider Physical Therapy Assistant | DX: R13.10 Dysphagia, unspecified (principal); J44.9 Chronic obstructive pulmonary disease, unspecified; I10 Essential (primary) hypertension; F17.210 Nicotine dependence, cigarettes, uncomplicated | CPT/HCPCS: 99213 ==

== ENCOUNTER 2019-07-13 12:01 | Day surgery (SDC) | payer MEDICARE, MEDICAID, SELFPAY ==
--- NOTE | 2019-07-13 06:50 | ENDO_ITS ---
Date of service: 07/13/19 Time of Service: 13:21 Endoscopy Report DATE OF PROCEDURE: 07/13/19 PRE-OP DIAGNOSIS: Dysphagia to solids, colon cancer screening POST-OP DIAGNOSIS: other (Gastritis, Esophagitis, ? Mullen's, Diverticulosis, colorectal polyps, internal and external hemorrhoids) PROCEDURE: 1. EGD with bx 2. Colonoscopy with polypectomy SURGEON: Gabby Woods ANESTHESIA: other (General/ ASA3 /Wilber Travis, CLERICAL ORDER FILLER) ESTIMATED BLOOD LOSS: 5 PATHOLOGY: other (GAstric and GE junction bx, ascending polyp) COMPLICATIONS: None DISPOSITION: same day INDICATIONS: Mrs Pinto is a pleasant 58 year old female who was seen in the office for a sccreening colonoscopy. Her last Colonoscopy was 10 years ago. She also has had dysphagia to solids. An EGD was recommended. Risks, benefits and complications have been reviewed. Complications include but are not limited to bleeding, pain, perforation, missed small lesion/polyp, sore throat, aspiration and adverse reaction to the medications. Questions were entertained and answered to their satisfaction and they wished to proceed. No guarantees were given or implied. PREP: Miralax/Dulcolax PROCEDURE START TIME: 13:21 PROCEDURE END TIME: 14:02 COLONOSCOPY RETRACTION TIME: 16 minutes FINDINGS: Upper- moderate gastritis and esophagitis Lower- one small polyp, dieverticulosis and internal and external hemorrhoids PROCEDURE DESCRIPTION: After informed consent was obtained the patient was take to the procedure room and placed in a supine position. Monitors were applied and a time out was done. The patients name, date of , procedure type, allergies to medications and metal in their body was reviewed. A bite block was placed and the patient was sedated. Once sedated and comfortable the gastroscope was advanced through the oropharynx which was grossly normal into the esophagus. The proximal and mid- esophagus were normal. There was normal peristalsis noted. In the distal esophagus there was inflammation noted as well as an irregular GE junction and findings suspicious for Mullen's. The scope was advanced into the stomach and through the pylorus into the 3rd portion of the duodenum. The duodenum was noted to be normal. The scope was retracted back into the stomach and biopsies were done to rule out H. pylori. There were no ulcers. The scope was retro- flexed. The cardia and fundus were noted have inflammation and there was old blood noted. The scope was retracted back into the esophagus and biopsies were done of the GE junction to rule out Mullen's. The Z line was irregular. There was inflammation and islands of tissue. The GE junction was at 38 cm. While the patient was still sedated they were placed in a left decubitous position. A rectal exam was done. External exam revealed Grade 2 external Hemorrhoids. Internal exam revealed a normal sphincter tone and no palpable masses. The scope was then introduced and retro-flexed. Grade 1 internal hemorrhoids were identified. The scope was then advanced to the cecum without difficulty. The TI and appendiceal orifice were identified. The prep was adequate. The colonoscopy was difficult due to the patients coughing throughout the procedure. The scope was then slowly retracted over 16 minutes back into the rectum. The scope was removed and the patient was woken up and taken back to Same day surgery in stable condition. The patient tolerated the procedure well and there were no immediate complications. Follow up: 3 years for the next colonoscopy
--- NOTE | 2019-07-13 06:52 | W.PM.DSUDISC ---
Discharge Plan Disposition Patient Disposition: HOME Condition: Good Discharge Details Reason For Visit: Colonoscopy and EGD Attending Provider: Gabby Woods Primary Care Provider: Suzi Irving Home Meds and New Rx's Prescriptions: Continued clotrimazole 1 % cream 1 applic TP BID PRNRF: 0 ranitidine HCl 150 mg capsule 150 mg PO QHS Qty: 30 RF: 5 lisinopril 10 mg tablet 10 mg PO DAILY Qty: 30 RF: 6 Restasis 0.05 % Dropperette 1 drp OPHTHALMIC (EYE) Q12H RF: 0 albuterol sulfate 90 mcg/actuation HFA aerosol inhaler 1 puff IH Q6H PRN (Reason: shortness of breath or wheezing) Qty: 8 RF: 0 omeprazole 40 mg capsule,delayed release(DR/EC) 40 mg PO HS RF: 0 Discontinued polyethylene glycol 3350 17 gram/dose powder 238 g PO ONCE Qty: 238 RF: 0 bisacodyl [Dulcolax (bisacodyl)] 5 mg tablet,delayed release (DR/EC) 5 mg PO ONCE Qty: 4 RF: 0 Discharge Instructions Instructions: Colonoscopy (DC), Upper Endoscopy (DC), Diverticulosis (DC), Diet for Stomach Ulcers and Gastritis (GEN), Gastritis (DC), Esophagitis (DC) Additional Instructions: Findings: Inflammation in the stomach and esophagus small polyp and diverticulosis in the large bowel Other: Increase Omeprazole to 2 times a day. YOU NEED TO STOP SMOKING OR YOU WILL NOT GET BETTER AND END UP WITH CANCER Follow up: 3 years for colonoscopy Please call if you develop: fevers >101.5 Nausea or Vomiting Abdominal pain that is not transient DAY SURGERY UNIT POST ENDOSCOPY INSTRUCTIONS 1. Because there will be medication in your system for the next 24 hours, you may feel a little sleepy. Your coordination will be affected. Therefore: a. Do not drive or operate dangerous equipment for 24 hours. b. Do not drink alcohol beverages for 24 hours (not even beer). c. Plan to go home and rest for the day. 2. Generally there are no restrictions on your activity after a day or so has gone by, but you may feel a bit fatigued for a few days. 3 After you arrive home you may have a light meal and return to a normal diet as you can tolerate it without feeling sick to your stomach. 4. After surgery, you may feel pain or discomfort. This should be only transient, but if it persists please contact your doctor. 5. If there are any questions regarding the findings of your procedure, please feel free to contact your doctor. 6. If you are unable to contact your doctor with a problem, contact the hospital at [phone]. 7. Continue all your regular medications unless directed otherwise. I understand the above instructions and have no questions. Signature of Patient or Responsible Adult Escort Date/Time Name of Responsible Adult Escort Signature of Nurse Date/Time Activity:: Activity as Tolerated Diet:: LOW ACID AND HIGH FIBER Discharge Orders Discharge Orders: Discharge Order (Routine); Ordered 07/13/19 Ordered By: Gabby Woods DS: Diagnosis Discharge Diagnosis (1) S/P colonoscopy: Status: Acute (2) Diverticulosis: Status: Acute (3) Hemorrhoids: Status: Acute
[2019-07-13 12:13] VITALS: BP 125/90; PULSE 88; RESP 16; TEMP 37; O2SAT 98
[2019-07-13] MEDS: Lactated Ringers 1,000 ML 80 ML IV (12:42)
--- NOTE | 2019-07-13 13:25 | STOM_PTH ---
PATIENT: Lisa Pinto LOC: [facility] U#:[id number] AGE/SX: 58/F ROOM: RE07/13/[address]: Gabby Woods MD : 1960 BED: DIS: 07/13/2019 SPEC #: [id number] RECD: 07/13/19 18:21 STATUS: JORDAN REQ #: [id number] NITHIN: 07/13/19 13:[address]: Gabby Woods DEPT: Surgical Specimen RECD BY: Ira Mixon ENTERED: 07/13/19 18:22 SP TYPE: STOMACH OTHR DR: Suzi Irving APRN Tissues: 1 - STOMACH BIOPSY 2 - ESOPHAGUS BIOPSY 3 - BIOPSY BOWEL Procedures: GROSS AND MICRO LEVEL 4 Comments: [id number]
[2019-07-13] MEDS: Albuterol/Ipratropium 3 ML UPD VIAL (13:48)
[2019-07-13 14:31] VITALS: BP 147/99; PULSE 70; RESP 16; TEMP 36.7; O2SAT 97
== END 2019-07-13 14:45 | disposition home or self-care (01) ==
LOC: SUR 12:01
PROVIDERS: PCP Nurse Practitioner; Visit Provider Surgery
PROC: (CPT 43239; principal; 2019-07-13 13:15)
DX: R13.10 Dysphagia, unspecified (principal); Z12.11 Encounter for screening for malignant neoplasm of colon; K31.89 Other diseases of stomach and duodenum; D12.2 Benign neoplasm of ascending colon; K29.70 Gastritis, unspecified, without bleeding; K20.9 Esophagitis, unspecified; K57.30 Diverticulosis of large intestine without perforation or abscess without bleeding; K64.1 Second degree hemorrhoids
CPT/HCPCS: 43239; 45380; 88305; J7620

== ENCOUNTER 2019-11-16 00:17 | Outpatient (CLI) | payer MEDICARE, MEDICAID, SELFPAY ==
--- NOTE | 2019-11-16 13:38 | DI.CT_ITS ---
EXAM: CT CHEST WO CLINICAL HISTORY: RUL NODULE. REPEAT RECOMMENDED FOR OCTOBER 2019, TOBACCO USE, F17.200, R91.1 TECHNIQUE: Noncontrast chest CT was obtained to follow previously noted 3-4 millimeter in diameter r ight apical intrapulmonary nodule. This was noted on prior study of May 14, 2019. COMPARISON: CT CHEST LUNG CANCER SCREEN from 05/14/2019 FINDINGS: This nodule is again seen and unchanged from the prior study. No new intrapulmonary nodule seen. Ti ny pleural-based right basilar lung nodules. No mediastinal or hilar adenopathy. No pleural effusio n. Tracheobronchial tree appears intact. Mild apical subpleural emphysema and scattered subpleural and centrilobular emphysema noted. Images obtained through the upper abdomen show unremarkable appearance of visualized portions of live r, spleen, pancreas, adrenals, and kidneys. IMPRESSION: Stable 3-4 millimeter right upper lobe intrapulmonary nodule. Follow-up low-dose lung cancer screeni ng chest CT suggested 12 months.
== END 2019-11-16 00:37 ==
PROVIDERS: PCP Nurse Practitioner; Visit Provider Nurse Practitioner
DX: R91.1 Solitary pulmonary nodule (principal); F17.200 Nicotine dependence, unspecified, uncomplicated; J43.8 Other emphysema
CPT/HCPCS: 71250

== ENCOUNTER 2020-01-07 13:49 | Outpatient (CLI) | payer MEDICARE, MEDICAID, SELFPAY ==
--- NOTE | 2020-01-07 11:30 | DI.RAD_ITS ---
EXAM: XR CHEST 2V PA LATERAL CLINICAL HISTORY: Cough, SOB, TOBACCO USE, R06.02, R05, F17.200 TECHNIQUE: 2D digital imaging was performed. COMPARISON: No exams were available for comparison FINDINGS: MEDIASTINUM: Normal. HEART: Normal. PULMONARY VASCULATURE: Normal. LUNGS: Clear. PLEURAL SPACE: No pleural effusion or pneumothorax. BONE:Normal. OTHER FINDINGS:Hardware in the lower cervical spine. IMPRESSION: No acute pulmonary findings. DATA REPOSITORY: RADIATION DOSE DELIVERED:
== END 2020-01-07 14:09 ==
PROVIDERS: PCP Nurse Practitioner; Visit Provider Nurse Practitioner
DX: R06.02 Shortness of breath (principal); R05 Cough; F17.200 Nicotine dependence, unspecified, uncomplicated
CPT/HCPCS: 71046

== ENCOUNTER 2020-08-18 01:58 | Outpatient (CLI) | payer MEDICARE, MEDICAID, SELFPAY ==
--- NOTE | 2020-08-18 07:00 | DI.US_ITS ---
EXAM: US ABDOMEN CLINICAL HISTORY: Distension, fluid vs. gas,r14.0 TECHNIQUE: Ultrasound abdomen performed using standard protocol. COMPARISON: CT CT ABDOMEN PELVIS W from 08/10/2018 FINDINGS: LIVER: Mildly diffusely increased echogenicity and mild enlargement with cephalo caudad measurements 18 cm. No focal liver lesions are seen.. GALLBLADDER: No evidence of cholelithiasis. No evidence of wall thickening. No pericholecystic fluid identified. PAVON'S SIGN: Negative. BILIARY SYSTEM: No intrahepatic or extrahepatic biliary ductal dilation. KIDNEYS: Kidneys are symmetric in size. No evidence of renal calculi. No evidence of hydronephrosis. No renal mass or cyst identified. Column of Juan [place] incidentally noted on the right. PANCREAS: Normal where visualized. SPLEEN: Not enlarged. ABDOMINAL AORTA AND IVC: Visualized portions normal caliber. ASCITES: None seen. IMPRESSION: [id number] hepatic steatosis. Normal appearing gallbladder.. DATA REPOSITORY:
== END 2020-08-18 02:18 ==
PROVIDERS: PCP Nurse Practitioner; Visit Provider Family Medicine
DX: K76.0 Fatty (change of) liver, not elsewhere classified (principal); R14.0 Abdominal distension (gaseous)
CPT/HCPCS: 76700

== ENCOUNTER 2020-10-18 01:16 | Outpatient (CLI) | payer MEDICARE, SELFPAY ==
--- NOTE | 2020-10-18 08:15 | DI.MAMMO_ITS ---
EXAM: MG MAMMO SCREENING CLINICAL HISTORY: screening,Z12.39 TECHNIQUE: Bilateral full field digital CC and MLO mammographic images were obtained with 3D tomosyn thesis and utilizing computer aided detection (CAD). COMPARISON: Available for comparison. FINDINGS: Masses/Architectural Distortion: None seen. Microcalcifications: No suspicious pleomorphic-type are seen. Skin Thickening/Nipple Retraction: None. IMPRESSION: 1. No significant interval change with no specific features of malignancy noted. 2. Unless there is more urgent need, screening mammography is recommended, as per [employer] guidelines. BI-RADS Category 1 - Negative Breast Density - Category B - Scattered areas of fibroglandular density A negative radiographic report should not delay biopsy if a dominant or clinically suspicious mass is present. Up to ten percent of cancers are not identified on mammography. A negative report may reinforce clinical impression. Adenosis and dense breasts may obscure an underlying neoplasm. False positive reports average 6 to 10%. Patient will receive a letter notifying them of these results.
== END 2020-10-18 01:36 ==
PROVIDERS: PCP Nurse Practitioner; Visit Provider Nurse Practitioner
DX: Z12.31 Encounter for screening mammogram for malignant neoplasm of breast (principal)
CPT/HCPCS: 77063; 77067

== ENCOUNTER 2020-10-19 02:01 | Outpatient (CLI) | payer MEDICARE, SELFPAY ==
[2020-10-19 09:36] LABS: HCT 45.7 % (36.0-46.0); HGB 14.9 g/dL (11.2-15.7); MCH 31.2 pg (27.0-33.0); MCHC 32.6 % (32.0-36.0); MCV 95.6 fL (80-95); MPV 10.9 fL (8.0-11.0); Platelet Count 293 10^3/uL (130-400); RBC 4.78 10^6/uL (3.93-5.22); RDW 12.4 % (11.7-14.6); RDW-SD 43.9 fL; WBC 8.29 10^3/uL (4.4-10.8)
[2020-10-19 10:32] LABS: ALT 26 U/L (14-59); AST 11 U/L (15-37); Albumin 3.7 g/dL (3.4-5.0); Alkaline Phosphatase 76 U/L (46-116); Anion Gap 5.3 mmol/L (3-11); BUN 10 mg/dL (7-18); Bilirubin, Total 0.6 mg/dL (0.2-1.0); CO2 31.7 mmol/L (21.0-32.0); CREATININE 0.89 mg/dL (0.55-1.02); Calcium 8.8 mg/dL (8.5-10.1); Calculated LDL 155 mg/dL (<100); Chloride 105 mmol/L (98-107); Cholesterol 231 mg/dL (<200); Glucose 94 mg/dL (74-106); HDL Cholesterol 49 mg/dL (40-60); Potassium 4.4 mmol/L (3.5-5.1); Sodium 142 mmol/L (136-145); Total Protein 6.5 g/dL (6.4-8.2); Triglyceride 135 mg/dL (<150)
== END 2020-10-19 02:21 ==
PROVIDERS: PCP Nurse Practitioner; Visit Provider Nurse Practitioner
DX: I10 Essential (primary) hypertension (principal); F17.200 Nicotine dependence, unspecified, uncomplicated; R20.8 Other disturbances of skin sensation
CPT/HCPCS: 36415; 80053; 80061; 85027

== ENCOUNTER 2020-10-25 00:39 | Outpatient (CLI) | payer MEDICARE, MEDICAID, SELFPAY ==
--- NOTE | 2020-10-25 09:35 | DI.MRI_ITS ---
EXAM: MR BRAIN WO CLINICAL HISTORY: Dizziness approx 6 weeks,LIGHTHEADED,R42,R51.9. TECHNIQUE: Multiplanar multisequence MRI of the brain was performed. CONTRAST MATERIAL: Noncontrast COMPARISON: No exams were available for comparison FINDINGS: Exam is mildly limited by patient motion. VENTRICLES AND EXTRA AXIAL SPACES: Normal in size and morphology for the patient's age. HEMORRHAGE: None. CEREBRAL PARENCHYMA: No focus of restricted diffusion to suggest acute infarct. No space-occupying le vickie identified. Few scattered high signal foci are seen in the white matter consistent with sequela of minimal microvascular disease. MIDLINE SHIFT: None. BRAINSTEM/CEREBELLUM: Normal. CALVARIUM: Normal. VISUALIZED PARANASAL SINUSES/MASTOIDS: Clear. OTHER FINDINGS: Vascular flow voids are intact. The orbits are unremarkable. The pituitary is rossy l in size. IMPRESSION: Unremarkable MRI of the brain. DATA REPOSITORY:
== END 2020-10-25 00:59 ==
PROVIDERS: PCP Nurse Practitioner; Visit Provider Nurse Practitioner
DX: R42 Dizziness and giddiness (principal); R51.9 Headache, unspecified
CPT/HCPCS: 70551

== ENCOUNTER 2021-01-16 11:58 | Outpatient (REF) | payer OTHER, SELFPAY ==
--- NOTE | 2021-01-16 12:00 | PAPFT_PTH ---
PATIENT: Lisa Pinto LOC: [facility] U#:[id number] AGE/SX: 60/F ROOM: RE01/16/[address]: Suzi Irving APRN : 1960 BED: DIS: 01/16/2021 SPEC #: [id number] RECD: 01/16/21 17:51 STATUS: JORDAN REQ #: [id number] NITHIN: 01/16/21 12:[address]: Suzi Irving DEPT: [facility] Cytology RECD BY: Ira Mixon Tissues: 1 - CX/ENDOCX FOR PAP SMEARS Procedures: PAP THIN PREP/[facility] Screening HPV DNA PROBE Comments: [id number]
== END 2021-01-16 11:59 | disposition home or self-care (01) ==
LOC: LBN 11:58
PROVIDERS: PCP Nurse Practitioner; Visit Provider Nurse Practitioner
DX: Z12.4 Encounter for screening for malignant neoplasm of cervix (principal); Z11.51 Encounter for screening for human papillomavirus (HPV)
CPT/HCPCS: 88142; 87624

== ENCOUNTER 2021-01-26 03:21 | Outpatient (CLI) | payer OTHER, SELFPAY ==
[2021-01-27 10:18] LABS: Varicella IgG Antibody Positive (See Note)
== END 2021-01-26 03:22 | disposition home or self-care (01) ==
LOC: LBO 03:21
PROVIDERS: PCP Nurse Practitioner; Visit Provider Nurse Practitioner
DX: Z01.84 Encounter for antibody response examination (principal); I10 Essential (primary) hypertension
CPT/HCPCS: 36415; 86787

== ENCOUNTER → 2021-02-14 08:16 | Outpatient (BNVA) | payer OTHER, SELFPAY | PROVIDERS: PCP Nurse Practitioner; Referring Provider Otolaryngology; Visit Provider Psychiatry & Neurology Neurology | DX: R42 Dizziness and giddiness (principal) | CPT/HCPCS: 99215 ==

== ENCOUNTER 2021-08-08 16:38 | Outpatient (REF) | payer OTHER, SELFPAY ==
[2021-08-10 16:40] LABS: COVID-19 RT-PCR UVMMC Result Negative (Negative)
== END 2021-08-08 16:39 | disposition home or self-care (01) ==
LOC: LBO 16:38
PROVIDERS: Family Medicine; PCP Nurse Practitioner; Visit Provider Nurse Practitioner
DX: Z20.822 Contact with and (suspected) exposure to COVID-19 (principal); J20.9 Acute bronchitis, unspecified
CPT/HCPCS: U0003

== ENCOUNTER 2021-08-15 12:52 | Outpatient (CLI) | payer OTHER, SELFPAY ==
--- NOTE | 2021-08-15 11:45 | DI.RAD_ITS ---
Exam(s) XR CHEST 2V PA LATERAL EXAM: XR CHEST 2V PA LATERAL CLINICAL HISTORY: chronic,worsening FONSECA, SOB, cough, WHEEZE, COPD, R05.9, R06.2,R06.02, J44.9 TECHNIQUE: 2D digital imaging was performed of the chest. Two images were obtained. PA and lateral views were obtained. COMPARISON: No exams were available for comparison FINDINGS: MEDIASTINUM: Normal. HEART: Normal. PULMONARY VASCULATURE: Normal. LUNGS: Clear. PLEURAL SPACE: No pleural effusion or pneumothorax. BONE:Within normal limits for the patient's age. OTHER FINDINGS:Normal. IMPRESSION: No acute pulmonary findings. DATA REPOSITORY: RADIATION DOSE DELIVERED:
== END 2021-08-15 13:12 ==
PROVIDERS: PCP Nurse Practitioner; Visit Provider Nurse Practitioner
DX: R05.9 Cough, unspecified (principal); R06.02 Shortness of breath; R06.2 Wheezing; J44.9 Chronic obstructive pulmonary disease, unspecified
CPT/HCPCS: 71046

== ENCOUNTER 2021-09-14 02:18 | Outpatient (CLI) | payer OTHER, SELFPAY ==
[2021-09-14 10:13] LABS: Abs Immature Grans 0.07 10^3/uL (0.0-0.06); Absolute Basophil Count 0.03 10^3/uL (0.0-0.2); Absolute Eosinophil Count 0.19 10^3/uL (0.0-0.7); Absolute Lymphocyte Count 1.73 10^3/uL (1.2-3.4); Absolute Neutrophil Count 4.12 10^3/uL (1.2-6.7); Basophils % 0.4; Eosinophils % 2.7; HCT 44.5 % (36.0-46.0); HGB 14.2 g/dL (11.2-15.7); Lymphocytes % 24.6; MCH 31.1 pg (27.0-33.0); MCHC 31.9 % (32.0-36.0); MCV 97.6 fL (80-95); MPV 10.5 fL (8.0-11.0); Monocytes % 12.8; Neutrophils % 58.5; Nucleated RBC 0 %; Platelet Count 340 10^3/uL (130-400); RBC 4.56 10^6/uL (3.93-5.22); WBC 7.04 10^3/uL (4.4-10.8)
[2021-09-14 11:15] LABS: ALT 30 U/L (14-59); AST 15 U/L (15-37); Albumin 3.6 g/dL (3.4-5.0); Alkaline Phosphatase 90 U/L (46-116); Anion Gap 4.5 mmol/L (3-11); BUN 17 mg/dL (7-18); Bilirubin, Total 0.2 mg/dL (0.2-1.0); CO2 32.5 mmol/L (21.0-32.0); CREATININE 0.8 mg/dL (0.55-1.02); Calculated LDL 161 mg/dL (<100); Chloride 107 mmol/L (98-107); Cholesterol 232 mg/dL (<200); Glucose 89 mg/dL (74-106); HDL Cholesterol 48 mg/dL (40-60); Potassium 4.9 mmol/L (3.5-5.1); Sodium 144 mmol/L (136-145); Total Protein 6.5 g/dL (6.4-8.2); Triglyceride 117 mg/dL (<150)
== END 2021-09-14 02:19 | disposition home or self-care (01) ==
LOC: LBO 02:18
PROVIDERS: PCP Nurse Practitioner; Visit Provider Nurse Practitioner
DX: I10 Essential (primary) hypertension (principal); J45.909 Unspecified asthma, uncomplicated
CPT/HCPCS: 36415; 80053; 80061; 85025

== ENCOUNTER 2022-02-05 01:04 | Outpatient (CLI) | payer OTHER, SELFPAY ==
--- NOTE | 2022-02-05 10:34 | DI.CT_ITS ---
Exam(s) CT CHEST WO EXAM: CT CHEST WO CLINICAL HISTORY: yearly f/u, f/u nodules, r91.1 TECHNIQUE: Imaging Protocol: Axial computed tomography images with coronal and sagittal reformatted images were created and reviewed COMPARISON: CT CT CHEST LUNG CANCER SCREEN from 02/02/2021 FINDINGS: Tracheobronchial tree: Patent where visualized. Mediastinum and Kaylah: No dominant adenopathy or fluid collection. Pulmonary parenchyma: No consolidation or dominant measurable mass. Mild paraseptal emphysematous ch anges at the apices. Lung Nodules: Stable tiny nodule right upper lobe. New nodules. Pleura: No effusion or pneumothorax. Heart: The heart is not dilated. No coronary artery calcifications are seen. Aorta: Thoracic aorta non-dilated. Upper abdomen: Marked hepatic steatosis. Bones: Degenerative disc changes. Soft Tissues: Unremarkable. IMPRESSION: Stable tiny right upper lobe nodule. Lung RADS Cat 2 - Benign Appearance / Behavior: Nodules with a very low likelihood of becoming a clin ically active cancer due to size or lack of growth Lung-RADS 1.0 CATEGORIES: Category 0 - Prior chest CT exam(s) being located for comparison. Category 1 - Annual screening in 12 months. No nodules or definitely benign nodules. Category 2 - Annual screening in 12 months. Benign appearance. Nodules with low likelihood of becomin g active cancer. Category 3 - 6-month follow-up. Probably benign. Short-term follow-up suggested. Nodules with low lik elihood of becoming active cancer. Category 4A - 3-month follow-up and CT/PET if >8 mm in size. Suspicious finding. Findings which requi re additional testing. Category 4B - Findings which require additional testing and tissue sampling. Category 4X - Category 3 or 4 nodules with additional features or imaging findings that increases the suspicion of malignancy. Modifier S- Potentially clinically significant findings (non lung cancer) RADIATION DOSE DELIVERED: 586.74mGy.cm Total DLP CTDIvol 586.74mGy.cm Total DLP DATA REPOSITORY: All CT scans at this facility are submitted to the National Radiology Data Registry (NRDR) Dose Index Registry (DIR) with the [employer] (ACR). RADIATION OPTIMIZATION: All CT scans at this facility use at least one of these dose optimization te chniques: automated exposure control; mA and/or kV adjustment per patient size (includes targeted exa ms where dose is matched to clinical indication); or iterative reconstruction.
== END 2022-02-05 01:24 ==
PROVIDERS: PCP Nurse Practitioner; Visit Provider Nurse Practitioner
DX: R91.1 Solitary pulmonary nodule (principal); J43.8 Other emphysema
CPT/HCPCS: 71250

== ENCOUNTER 2022-12-06 01:51 | Outpatient (CLI) | payer OTHER, SELFPAY ==
[2022-12-06 12:21] LABS: Abs Immature Grans 0.05 10^3/uL (0.0-0.06); Absolute Basophil Count 0.04 10^3/uL (0.0-0.2); Absolute Eosinophil Count 0.17 10^3/uL (0.0-0.7); Absolute Lymphocyte Count 2.27 10^3/uL (1.2-3.4); Absolute Monocyte Count 0.76 10^3/uL (0.1-0.8); Absolute Neutrophil Count 4.73 10^3/uL (1.2-6.7); Basophils % 0.5; Eosinophils % 2.1; HCT 46.4 % (36.0-46.0); HGB 15.3 g/dL (11.2-15.7); Immature Grans % 0.6; Lymphocytes % 28.3; MCH 31.6 pg (27.0-33.0); MCV 96 fL (80-95); MPV 11.4 fL (8.0-11.0); Monocytes % 9.5; Platelet Count 339 10^3/uL (130-400); RBC 4.84 10^6/uL (3.93-5.22); RDW 12.6 % (11.7-14.6); WBC 8.02 10^3/uL (4.4-10.8)
[2022-12-06 12:42] LABS: ALT 25 U/L (14-59); AST 17 U/L (15-37); Albumin 3.8 g/dL (3.4-5.0); Alkaline Phosphatase 91 U/L (46-116); Anion Gap 7.3 mmol/L (3-11); BUN 11 mg/dL (7-18); Bilirubin, Total 0.5 mg/dL (0.2-1.0); CO2 28.7 mmol/L (21.0-32.0); CREATININE 0.8 mg/dL (0.55-1.02); Calcium 9.3 mg/dL (8.5-10.1); Calculated LDL 155 mg/dL (<100); Chloride 103 mmol/L (98-107); Cholesterol 235 mg/dL (<200); Estimated GFR 82.74 (mL/min/1.73m2); Glucose 99 mg/dL (74-106); HDL Cholesterol 50 mg/dL (40-60); Potassium 4.3 mmol/L (3.5-5.1); Sodium 139 mmol/L (136-145); Total Protein 7.1 g/dL (6.4-8.2); Triglyceride 153 mg/dL (<150)
== END 2022-12-06 01:52 | disposition home or self-care (01) ==
LOC: LOS 01:51
PROVIDERS: Family Medicine; PCP Nurse Practitioner; Visit Provider Nurse Practitioner
DX: E78.5 Hyperlipidemia, unspecified (principal); F17.200 Nicotine dependence, unspecified, uncomplicated; I10 Essential (primary) hypertension; R59.1 Generalized enlarged lymph nodes
CPT/HCPCS: 36415; 80053; 80061; 85025

== ENCOUNTER → 2023-07-17 01:09 | Outpatient (CLI) | payer OTHER, SELFPAY ==
--- NOTE | 2023-07-17 08:45 | DI.CT_ITS ---
Exam(s) CT CHEST WO EXAM: CT CHEST WO CLINICAL HISTORY: F/U NODULE RT LUNG, SMOKER, R91.1 TECHNIQUE: Imaging Protocol: Axial computed tomography images with coronal and sagittal reformatted images were created and reviewed. Low dose screening protocol. COMPARISON: CT CT CHEST LUNG CANCER SCREEN from 05/14/[address] CHEST WO from 11/16/[address] CHEST LUNG CANCER SCREEN from 02/02/[address] CHEST WO from 02/05/2022 FINDINGS: Tracheobronchial tree: No bronchiectasis or mucus plugging.. Mediastinum and Kaylah: No dominant adenopathy or fluid collection. Pulmonary parenchyma: No consolidation or dominant measurable mass. Mild emphysematous changes. Lung Nodules: 2-3 millimeter nodule right lung apex is unchanged. No new nodules. Pleura: No effusion. No pneumothorax. Heart: The heart is not dilated. No coronary artery calcifications are seen. Aorta: Thoracic aorta non-dilated. Upper abdomen: Hepatic steatosis. Bones: Unremarkable for age. Degenerative disc changes. Soft Tissues: Unremarkable. IMPRESSION: No suspicious pulmonary nodules. Lung RADS Cat 2 - Benign Appearance / Behavior: Nodules with a very low likelihood of becoming a clin ically active cancer due to size or lack of growth Lung-RADS 1.0 CATEGORIES: Category 0 - Prior chest CT exam(s) being located for comparison. Category 1 - Annual screening in 12 months. No nodules or definitely benign nodules. Category 2 - Annual screening in 12 months. Benign appearance. Nodules with low likelihood of becomin g active cancer. Category 3 - 6-month follow-up. Probably benign. Short-term follow-up suggested. Nodules with low lik elihood of becoming active cancer. Category 4A - 3-month follow-up and CT/PET if >8 mm in size. Suspicious finding. Findings which requi re additional testing. Category 4B - Findings which require additional testing and tissue sampling. Category 4X - Category 3 or 4 nodules with additional features or imaging findings that increases the suspicion of malignancy. Modifier S- Potentially clinically significant findings (non lung cancer) RADIATION DOSE DELIVERED: 511.23mGy.cm Total DLP 511.23mGy.cm Total DLP DATA REPOSITORY: All CT scans at this facility are submitted to the National Radiology Data Registry (NRDR) Dose Index Registry (DIR) with the [employer] (ACR). RADIATION OPTIMIZATION: All CT scans at this facility use at least one of these dose optimization te chniques: automated exposure control; mA and/or kV adjustment per patient size (includes targeted exa ms where dose is matched to clinical indication); or iterative reconstruction.
== END ==
PROVIDERS: PCP Nurse Practitioner; Visit Provider Nurse Practitioner
DX: F17.210 Nicotine dependence, cigarettes, uncomplicated (principal); R91.1 Solitary pulmonary nodule; Z12.2 Encounter for screening for malignant neoplasm of respiratory organs
CPT/HCPCS: 71250

== ENCOUNTER 2024-01-01 04:56 | Outpatient (CLI) | payer OTHER, SELFPAY ==
[2024-01-01 10:04] LABS: Abs Immature Grans 0.02 10^3/uL (0.0-0.06); Absolute Basophil Count 0.03 10^3/uL (0.0-0.2); Absolute Eosinophil Count 0.19 10^3/uL (0.0-0.7); Absolute Lymphocyte Count 2.25 10^3/uL (1.2-3.4); Absolute Monocyte Count 0.61 10^3/uL (0.1-0.8); Absolute Neutrophil Count 4.18 10^3/uL (1.2-6.7); Basophils % 0.4; Eosinophils % 2.6; HCT 46.3 % (36.0-46.0); HGB 15.7 g/dL (11.2-15.7); Immature Grans % 0.3; Lymphocytes % 30.9; MCHC 33.9 % (32.0-36.0); MCV 95 fL (80-95); MPV 10.4 fL (8.0-11.0); Monocytes % 8.4; Neutrophils % 57.4; Platelet Count 290 10^3/uL (130-400); RDW 12.3 % (11.7-14.6); RDW-SD 43.2 fL; WBC 7.28 10^3/uL (4.4-10.8)
[2024-01-01 11:50] LABS: ALT 23 U/L (14-59); AST 9 U/L (15-37); Albumin 3.4 g/dL (3.4-5.0); Alkaline Phosphatase 83 U/L (46-116); Anion Gap 9.5 mmol/L (3-11); Bilirubin, Total 0.4 mg/dL (0.2-1.0); CO2 28.5 mmol/L (21.0-32.0); CREATININE 0.8 mg/dL (0.55-1.02); Calculated LDL 97 mg/dL (<100); Chloride 106 mmol/L (98-107); Cholesterol 167 mg/dL (<200); Estimated GFR 82.23 (mL/min/1.73m2); Glucose 96 mg/dL (74-106); HDL Cholesterol 53 mg/dL (40-60); Potassium 4.4 mmol/L (3.5-5.1); Sodium 144 mmol/L (136-145); Total Protein 6.6 g/dL (6.4-8.2); Triglyceride 88 mg/dL (<150)
[2024-01-01 11:58] LABS: BUN 15 mg/dL (7-18)
== END 2024-01-01 04:57 | disposition home or self-care (01) ==
LOC: LBO 04:56
PROVIDERS: Absent Provider Nurse Practitioner; PCP Nurse Practitioner; Referring Provider Nurse Practitioner; Visit Provider Nurse Practitioner
DX: I10 Essential (primary) hypertension (principal); E78.5 Hyperlipidemia, unspecified; R73.03 Prediabetes
CPT/HCPCS: 36415; 80053; 80061; 85025

== ENCOUNTER → 2024-02-19 11:21 | Outpatient (BNVA) | payer OTHER, MEDICAID, SELFPAY | PROVIDERS: PCP Nurse Practitioner; Referring Provider Nurse Practitioner; Visit Provider Podiatrist | DX: B07.0 Plantar wart (principal); Q82.8 Other specified congenital malformations of skin; L84 Corns and callosities | CPT/HCPCS: 11305; 17110; 99203 ==

== ENCOUNTER → 2024-03-11 11:00 | Outpatient (BNVA) | payer OTHER, MEDICAID, SELFPAY | PROVIDERS: PCP Nurse Practitioner; Referring Provider Nurse Practitioner; Visit Provider Podiatrist | DX: B07.0 Plantar wart; Q82.8 Other specified congenital malformations of skin; L84 Corns and callosities | CPT/HCPCS: 17110; 99213 ==

== ENCOUNTER → 2024-03-16 18:01 | Outpatient (CLI) | payer OTHER, MEDICAID, SELFPAY ==
--- NOTE | 2024-03-16 11:45 | DI.RAD_ITS ---
Exam(s) XR CHEST 2V PA LATERAL EXAM: XR CHEST 2V PA LATERAL CLINICAL HISTORY: Cough for three weeks, acute exacerbation of COPD, J44.1. TECHNIQUE: 2D digital imaging was performed. COMPARISON: CR XR CHEST 2V PA LATERAL from 08/15/2021 FINDINGS: 2 views: Anterior fusion plate lower cervical spine again noted Heart size is normal. The mediastinum is not widened. Lungs are clear on the frontal view. However, on the lateral view there is a nodular infiltrate proj ected over the lower heart shadow. Probably represents atelectasis or infiltrate in the lingular seg ment of the left lung. There are no pleural effusions. IMPRESSION: As seen on the lateral view there is a nodular infiltrate in what is probably the lingular segment of the left lung. This was not evident on the prior lateral view of 08/15/2021 appropriate follow-up r ecommended. DATA REPOSITORY: RADIATION DOSE DELIVERED:
== END ==
PROVIDERS: PCP Nurse Practitioner; Visit Provider Family Medicine
DX: J44.1 Chronic obstructive pulmonary disease with (acute) exacerbation (principal)
CPT/HCPCS: 71046

== ENCOUNTER 2024-04-10 13:20 | Outpatient (CLI) | payer OTHER, MEDICAID, SELFPAY ==
[2024-04-10 13:45] LABS: CREATININE 0.8 mg/dL (0.55-1.02); Estimated GFR 82.23 (mL/min/1.73m2)
== END 2024-04-10 13:21 | disposition home or self-care (01) ==
LOC: LBO 13:20
PROVIDERS: PCP Nurse Practitioner; Visit Provider Family Medicine
DX: R91.1 Solitary pulmonary nodule (principal); Z01.812 Encounter for preprocedural laboratory examination
CPT/HCPCS: 36415; 82565

== ENCOUNTER → 2024-04-27 02:09 | Outpatient (CLI) | payer OTHER, MEDICAID, SELFPAY ==
--- NOTE | 2024-04-27 06:30 | DI.CT_ITS ---
Exam(s) CT CHEST W EXAM: CT CHEST W CLINICAL HISTORY: 3 weeks of cough, new nodule on CXR,r91.1 TECHNIQUE: Imaging Protocol: Axial computed tomography images with coronal and sagittal reformatted images were created and reviewed CONTRAST MATERIAL: Intravenous: Omnipaque 350Contrast volume:80 mL. COMPARISON: CT CT CHEST WO from 07/17/2023 CR XR CHEST 2V PA LATERAL from 03/16/2024 FINDINGS: Tracheobronchial tree: Patent where visualized. No evidence of bronchiectasis. Pulmonary parenchyma: Centrilobular emphysematous changes are present. There is unchanged scarring i n the left lingula. No new infiltrates are seen. No pulmonary nodules are present. Mediastinum and Kaylah: No dominant adenopathy or fluid collection. The esophagus is unremarkable. Thyroid gland: Tiny subcentimeter nodules are seen in the thyroid gland. No follow-up is recommended . Pleura: No effusion or pneumothorax. Heart: The heart is not dilated. No coronary artery calcifications are seen. No pericardial effusion. Aorta: Thoracic aorta non-dilated. Atherosclerotic calcification is present. There is no evidence of dissection. Pulmonary arteries: Due to the timing of the bolus, opacification of the pulmonary arteries is subopt imal for evaluation of pulmonary emboli. Upper abdomen: Left nephrolithiasis. Lymph nodes: Within normal limits. Bones: Within normal limits for the patient's age. Soft tissues: Unremarkable. IMPRESSION: 1. No pulmonary nodules. 2. No acute pulmonary process. 3. Mild centrilobular emphysema. RADIATION DOSE DELIVERED: 492.05mGy.cm Total DLP DATA REPOSITORY: All CT scans at this facility are submitted to the National Radiology Data Registry (NRDR) Dose Index Registry (DIR) with the [employer] (ACR). RADIATION OPTIMIZATION: All CT scans at this facility use at least one of these dose optimization te chniques: automated exposure control; mA and/or kV adjustment per patient size (includes targeted exa ms where dose is matched to clinical indication); or iterative reconstruction.
[2024-04-27] MEDS: Normal Saline - Diluent 50 ML VIAL IJ (08:55)
[2024-04-27] MEDS: Omnipaque 350 MG/ML 500 ML BTL-Imaging package IJ (08:56)
[2024-04-27] MEDS: Normal Saline Flush 10 ML SYR IVP (08:57)
== END ==
PROVIDERS: PCP Nurse Practitioner; Visit Provider Family Medicine
DX: R91.1 Solitary pulmonary nodule (principal)
CPT/HCPCS: 71260

== ENCOUNTER 2024-07-01 10:59 | Observation (INO) | payer OTHER, SELFPAY ==
[2024-07-01 11:01] VITALS: BP 157/97; PULSE 81; RESP 16; TEMP 36.5; O2SAT 96
--- NOTE | 2024-07-01 11:15 | DI.CT_ITS ---
Exam(s) CT ABDOMEN PELVIS W EXAM: CT ABDOMEN PELVIS W CLINICAL HISTORY: epigastric pain TECHNIQUE: Imaging Protocol: Axial computed tomography images with coronal and sagittal reformatted images were created and reviewed. CONTRAST MATERIAL: Intravenous: Omnipaque 350 Contrast volume:100 mL Oral: No COMPARISON: CT CT ABDOMEN PELVIS W from 08/10/2018 FINDINGS: ABDOMEN: Lung Bases: Normal where visualized. Liver: Normal density. There is a stable tiny hypodensity in the left lobe of the liver. It is too s mall for further characterization but likely reflects a small cyst. No suspicious hepatic lesions ar e seen. Portal, Superior Mesenteric, and Splenic Veins: Unremarkable. Gallbladder and Biliary Tract: No radiodense calculus or dilation. Pancreas: Normal density, no abnormal calcifications or inflammatory process. Spleen: Normal. Adrenals: No masses seen. Kidneys: Normal size, contour and axis. There is a 3 mm nonobstructing stone in the upper pole of the left kidney. There are simple left renal cysts. No follow-up is recommended. There is a retroaort ic left renal vein. Abdominal Aorta: Abdominal portion non-dilated. Atherosclerotic calcification is present. Bowel: There are few diverticula in the colon but no evidence of acute diverticulitis. No evidence o f bowel wall thickening or obstruction. No evidence of appendicitis. Peritoneal Cavity: No ascites, collection or mesenteric inflammatory response. No free air. Lymph Nodes: Within normal limits. Bones: Within normal limits for the patient's age. Patient has a right total hip replacement. Soft Tissues: Unremarkable. PELVIS: Bladder: Portions of the urinary bladder are obscured due to artifact from the patient's right total hip replacement. The visualized portions of the urinary bladder are unremarkable. Reproductive Organs: Unremarkable as visualized. Lymph Nodes: Within normal limits. Bones: Within normal limits for the patient's age. IMPRESSION: 1. Colonic diverticulosis without evidence of acute diverticulitis. 2. No evidence of cholelithiasis or biliary ductal dilatation. 3. Left nephrolithiasis. No obstructive uropathy RADIATION DOSE DELIVERED: 406.84mGy.cm Total DLP DATA REPOSITORY: All CT scans at this facility are submitted to the National Radiology Data Registry (NRDR) Dose Index Registry (DIR) with the [employer] (ACR). RADIATION OPTIMIZATION: All CT scans at this facility use at least one of these dose optimization te chniques: automated exposure control; mA and/or kV adjustment per patient size (includes targeted exa ms where dose is matched to clinical indication); or iterative reconstruction.
--- NOTE | 2024-07-01 11:15 | RT.EKG_ITS ---
APPROVED REPORT Exam: Resting ECG Reason for Exam: epigastric pain Patient Location: E HR:66 bpm ECG Measurements Heart Rate 66 AXIS [place] 162 P 66 QRSd 92 QRS 39 QT 406 T 57 QTc 425 Conclusion Sinus rhythm...normal P axis, V-rate 60- 99 sinus rhtyhm, normal axis, normal intervls, non ischemic
[2024-07-01] MEDS: Normal Saline 1,000 ML 1000 ML IV (11:46)
[2024-07-01 11:54] LABS: Abs Immature Grans 0.02 10^3/uL (0.0-0.06); Absolute Basophil Count 0.03 10^3/uL (0.0-0.2); Absolute Eosinophil Count 0.03 10^3/uL (0.0-0.7); Absolute Lymphocyte Count 0.71 10^3/uL (1.2-3.4); Absolute Monocyte Count 0.76 10^3/uL (0.1-0.8); Absolute Neutrophil Count 6.02 10^3/uL (1.2-6.7); Basophils % 0.4 %; Eosinophils % 0.4 %; HCT 49.4 % (36.0-46.0); HGB 16.6 g/dL (11.2-15.7); Immature Grans % 0.3 %; Lymphocytes % 9.4 %; MCH 31.8 pg (27.0-33.0); MCHC 33.6 % (32.0-36.0); MCV 95 fL (80-95); MPV 10.5 fL (8.0-11.0); Neutrophils % 79.5 %; Platelet Count 278 10^3/uL (130-400); RBC 5.22 10^6/uL (3.93-5.22); RDW 12.1 % (11.7-14.6); RDW-SD 42.4 fL; WBC 7.57 10^3/uL (4.4-10.8)
[2024-07-01] MEDS: Ondansetron 4 MG/2 ML VIAL IVP (11:58)
[2024-07-01] MEDS: MORPHine 4 MG/ML SYR IVP (11:58)
[2024-07-01 12:14] LABS: ALT 979 U/L (14-59); Alkaline Phosphatase 230 U/L (46-116); Anion Gap 7.5 mmol/L (3-11); BUN 6 mg/dL (7-18); Bilirubin, Total 1.88 mg/dL (0.2-1.0); CO2 27.5 mmol/L (21.0-32.0); CREATININE 0.8 mg/dL (0.55-1.02); Chloride 105 mmol/L (98-107); Estimated GFR 82.23 (mL/min/1.73m2); Glucose 117 mg/dL (74-106); Lipase 42 U/L (16-77); Potassium 4.2 mmol/L (3.5-5.1); Sodium 140 mmol/L (136-145); Total Protein 7.6 g/dL (6.4-8.2)
[2024-07-01 12:33] LABS: COVID-19 PCR Negative (Negative); Influenza A PCR Negative (Negative); Influenza B PCR Negative (Negative); RSV PCR Negative (Negative)
[2024-07-01 12:34] LABS: Source Nasopharynx
[2024-07-01 12:41] LABS: AST 957 U/L (15-37); Calcium 9.8 mg/dL (8.5-10.1); Troponin I < 50 ng/L (< or =60)
[2024-07-01] MEDS: MORPHine 10 MG/ML VIAL 6 MG IVP (12:54)
[2024-07-01] MEDS: Omnipaque 350 MG/ML 100 ML BTL IJ (13:11)
[2024-07-01] MEDS: Normal Saline - Diluent 50 ML VIAL IJ (13:13)
--- NOTE | 2024-07-01 13:25 | DI.RAD_ITS ---
Exam(s) XR CHEST 2V PA LATERAL EXAM: XR CHEST 2V PA LATERAL CLINICAL HISTORY: hypoxia. TECHNIQUE: 2D digital imaging was performed. COMPARISON: CT CT CHEST WO from 07/17/[address] CHEST W from 04/27/2024 FINDINGS: 2 views: Lowered fusion plate in the lower cervical spine is again noted. Heart size is normal. The mediastinum is not widened. Right lung is clear. Mild increased markings in the lingular segment of the left lung are again note d, again noted be more prominent on the lateral view. As per CT scan of 04/27/2024 this is a benign appearing unchanged finding which was apparently also evident on CT scan of 07/17/2023. this has not increased in size. There are no pleural effusions. IMPRESSION: No acute pulmonary findings.Stable benign-appearing increased markings in the inferior lingular segme nt of the left lung. DATA REPOSITORY: RADIATION DOSE DELIVERED:
[2024-07-01] MEDS: Normal Saline 1,000 ML 80 ML IV (13:51)
[2024-07-01] MEDS: HYDROmorphone 2 MG/ML SYR 1 MG IVP (13:58)
[2024-07-01 13:59] VITALS: BP 195/101; PULSE 81; RESP 21; O2SAT 96
--- NOTE | 2024-07-01 15:10 | W.PC.ACHO ---
Registration Status: Primary Language: Preferred Language: ED Information & Data Chief Complaint Abd Prob 07/01/24 11:08 Chief Complaint Abd Prob 07/01/24 11:01 Triage Note Pt c/o crampy abd pain, 07/01/24 11:01 bloating, n/v (once today) that started on . Pt states she at cake w eggs and thought maybe it was d/ t being lactose intolerant. 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 No abd surgeries in the past. No sick contacts. Medical / Surgical History (Last Reviewed 03/11/24 @ 11:21 by Donita Rios DPM) Tobacco abuse GERD (gastroesophageal reflux disease) Ulcer Multiple environmental allergies Hypertension Hyperlipidemia Restrictive lung disease Gastritis Arthritis Shoulder pain (Last Reviewed 03/11/24 @ 11:21 by Donita Rios DPM) History of tonsillectomy Hx of shoulder surgery S/P colonoscopy History of esophagogastroduodenoscopy (EGD) (~07/13/19) History of colonoscopy (~07/13/19) History of neck surgery History of carpal tunnel release History of hip replacement EGD - MAC (08/27/17) Most Recent Vital Signs Temperature 36.5 C 07/01/24 11:01 Temperature Source Temporal Artery Scan 07/01/24 11:01 Pulse 81 07/01/24 13:59 Respiratory Rate 21 07/01/24 13:59 Respiratory Effort Normal 07/01/24 11:08 Blood Pressure 195/101 H 07/01/24 13:59 Blood Pressure Position Sitting 07/01/24 11:01 Pulse Oximetry 96 07/01/24 13:59 Oxygen Delivery Method Room Air 07/01/24 13:59 Oxygen Flow Rate 0 07/01/24 13:59 Pain Level 10 07/01/24 11:01 Allergies Influenza Virus Vaccines Allergy (Severe, Verified 07/01/24 11:07) stomach cramps oxycodone HCl (From Percocet) Allergy (Unknown, Verified 07/01/24 11:07) Skin Rash erythromycin base (From Erythrocin) Adverse Reaction (Intermediate, Verified 07/01/24 11:07) Diarrhea banana Adverse Reaction (Verified 07/01/24 11:07) GI upset egg Adverse Reaction (Verified 07/01/24 11:07) GI upset lactose Adverse Reaction (Verified 07/01/24 11:07) GI upset Other Allergy (Intermediate, Uncoded 07/01/24 11:07) h/o diverticulitis Cannot eat anything with seeds Blocks small intestine - Hx of diverticulitis Active Medications Generic Name Dose Route Start Last Admin Trade Name Freq PRN Reason Stop Dose Admin Sodium Chloride 1,000 mls @ 80 mls/hr 07/01/24 13:45 07/01/24 13:51 Saline 1000ml Bag IV 80 mls/hr INFUSION KIRSTY Administration Iohexol 100 ml 07/01/24 13:15 07/01/24 13:11 Omnipaque 350 Mg/Ml 100 Ml Btl IJ 07/31/24 23:59 100 ml DIRECTED KIRSTY Administration Sodium Chloride 50 ml 07/01/24 13:15 07/01/24 13:13 Normal Saline - Diluent 50 Ml Vial IJ 50 ml .FOR DI USE KIRSTY Administration IV IV Catheter Type [Left Peripheral IV Antecubital] IV Catheter Gauge [Left 18 Antecubital] Diet Orders Category Date Time Status Nothing Per Oral [DIET] Nutrition 07/01/24 Lunch Active Diagnostics 07/01/24 07/01/24 07/01/24 Range/Units 14:24 11:50 11:46 WBC (4.4-10.8) 10^3/uL RBC (3.93-5.22) 10^6/uL Hgb (11.2-15.7) g/dL Hct (36.0-46.0) % MCV (80-95) fL MCH (27.0-33.0) pg MCHC (32.0-36.0) % RDW (11.7-14.6) % Plt Count (130-400) 10^3/uL MPV (8.0-11.0) fL Immature Gran % % Neutrophils % % Lymphocytes % % Monocytes % % Eosinophils % % Basophils % % Nucleated RBC % (0.0-0.3) % Absolute Neutrophils (1.2-6.7) 10^3/uL Absolute Lymphocytes (1.2-3.4) 10^3/uL Absolute Monocytes (0.1-0.8) 10^3/uL Absolute Eosinophils (0.0-0.7) 10^3/uL Absolute Basophils (0.0-0.2) 10^3/uL Sodium Potassium Chloride Carbon Dioxide Anion Gap BUN Creatinine Est GFR (CKD-EPI 2020) Glucose Calcium Total Bilirubin AST ALT Alkaline Phosphatase Troponin I High Sens Cancelled (< or =60) ng/L Total Protein Albumin Lipase Cancelled (16-77) U/L COVID-19 Source Nasopharynx SARS-CoV-2 (PCR) Negative (Negative) Influenza Type A (PCR) Negative (Negative) Influenza Type B (PCR) Negative (Negative) RSV (PCR) Negative (Negative) 07/01/24 07/01/24 Range/Units 11:46 11:26 WBC 7.57 (4.4-10.8) 10^3/uL RBC 5.22 (3.93-5.22) 10^6/uL Hgb 16.6 H (11.2-15.7) g/dL Hct 49.4 H (36.0-46.0) % MCV 95 (80-95) fL MCH 31.8 (27.0-33.0) pg MCHC 33.6 (32.0-36.0) % RDW 12.1 (11.7-14.6) % Plt Count 278 (130-400) 10^3/uL MPV 10.5 (8.0-11.0) fL Immature Gran % 0.3 % Neutrophils % 79.5 % Lymphocytes % 9.4 % Monocytes % 10.0 % Eosinophils % 0.4 % Basophils % 0.4 % Nucleated RBC % 0.0 (0.0-0.3) % Absolute Neutrophils 6.02 (1.2-6.7) 10^3/uL Absolute Lymphocytes 0.71 L (1.2-3.4) 10^3/uL Absolute Monocytes 0.76 (0.1-0.8) 10^3/uL Absolute Eosinophils 0.03 (0.0-0.7) 10^3/uL Absolute Basophils 0.03 (0.0-0.2) 10^3/uL Sodium 140 Cancelled Potassium 4.2 Cancelled Chloride 105 Cancelled Carbon Dioxide 27.5 Cancelled Anion Gap 7.5 Cancelled BUN 6 L Cancelled Creatinine 0.8 Cancelled Est GFR (CKD-EPI 2020) 82.23 Cancelled Glucose 117 H Cancelled Calcium 9.8 Cancelled Total Bilirubin 1.88 H Cancelled AST 957 H Cancelled ALT 979 H Cancelled Alkaline Phosphatase 230 H Cancelled Troponin I High Sens < 50 (< or =60) ng/L Total Protein 7.6 Cancelled Albumin 4.0 Cancelled Lipase 42 (16-77) U/L COVID-19 Source SARS-CoV-2 (PCR) (Negative) Influenza Type A (PCR) (Negative) Influenza Type B (PCR) (Negative) RSV (PCR) (Negative) Intake and Output - 24 Hour Total 07/01/24 10:59 thru 07/01/24 15:05 Intake Total 1010 Output Total 300 Balance 710 Weight 71.214 kg Intake: IV 1010 Output: Urine 300 Other: Urine Color Yellow Urine Appearance Clear Urine Odor Normal Falls Risk Assessment History of Falls No History 07/01/24 11:08 Contributing Factors No Factors 07/01/24 11:08 Ambulatory Aids Independent 07/01/24 11:08 Tubes/Lines None 07/01/24 11:08 Gait Evaluation No gait disturbance 07/01/24 11:08 Cognition No cognitive impairment 07/01/24 11:08 Fall Total Score 0 07/01/24 11:08 Level of Risk Standard/Low Risk 07/01/24 11:08 v v v v v v v v v Sending and/or Receiving Nurses: Please use comment section below to note any information pertinent to the patient hand-off not included above. Information / Comments: Report received at 1422; pt to [facility] floor room 215. Pt's at bedside. Report received from: GRIFFIN Jeronimo RN
[2024-07-01 15:11] VITALS: BP 172/96; PULSE 74; RESP 22; TEMP 36.8; O2SAT 94
[2024-07-01] MEDS: LORazepam 2 MG/ML VIAL 1 MG IVP (16:30)
[2024-07-01] MEDS: Lactated Ringers 1,000 ML 75 ML IV (16:38)
[2024-07-01] MEDS: Normal Saline Flush 10 ML SYR IVP (16:38)
--- NOTE | 2024-07-01 17:02 | W.PM.HP.N ---
Date of service: 07/01/24 Time of Service: 17:02 Assessment and Plan Assessment and plan (1) Hepatitis: Status: Acute Assessment and plan: Although some of the elements here do seem consistent with biliary colic, the absence of any secondary signs of cholecystitis on her CT scan is pretty remarkable. Furthermore, the elevation of the ALT and AST are quite surprising relative to the mild elevation in the total bilirubin. Common bile duct appeared a little bit dilated to be on the CT scan, but the MRCP shows no evidence of any common bile duct obstruction, nor are there any stones within the gallbladder. It seems a little atypical for patient to develop spontaneous acalculous cholecystitis, but she does have pretty significant COPD, so I suppose that could put her at risk for it. Even with a calculus cholecystitis, however, I would not expect such a significant rise in the transaminases. For now, we will repeat some of the liver function test, and send off an acute hepatitis panel (although she has no significant risk factors for an acute hepatitis infection) and set her up for a HIDA scan in the morning. With a normal white blood cell count and temperature, I do not think there is any benefit to adding antibiotics at this point, but I will certainly have a low threshold for that if she develops any signs of sepsis. History of Present Illness History of Present Illness Chief Complaint: abdominal pain Narrative: Lisa is 63 years old. She comes to the emergency department today with 4 to 5 days of increasing abdominal discomfort. It started as some mild mid epigastric fullness, that developed into a sense of bloating or constipation. She took some stool softeners, and had some bowel movements, but the discomfort started to evolve into a pain in her mid epigastrium that radiated around the right and left sides towards her back. It felt fairly central. It sounds like maybe food made it worse. She developed nausea today, but has not had any episodes of vomiting. She came to the emergency department, and had a mild elevation of her bilirubin, as well as increased AST and ALT. She underwent a CT scan that was basically normal, followed up with MRCP because I had some concerns of biliary ductal dilatation. MRCP showed a little bit of Oneil cholecystic fluid, but no evidence of any stones within the common duct or the cystic duct. Review of Systems Constitutional Constitutional: Reports body ache(s), Reports fatigue, Denies fever(s) and Reports lethargy Eyes Eyes: Reports system reviewed and no additional complaints, except as documented ENT Ears, Nose, Mouth, and Throat: Reports system reviewed and no additional complaints, except as documented Cardiovascular Cardiovascular: Denies chest pain and Denies dyspnea Respiratory Respiratory: Denies chest congestion, Reports cough, Denies dyspnea and Reports wheezing Gastrointestinal Gastrointestinal: Reports abdominal pain, Reports bloating, Reports constipation, Reports nausea and Denies vomiting Genitourinary Genitourinary: Reports system reviewed and no additional complaints, except as documented Musculoskeletal Musculoskeletal: Reports myalgias Psychiatric Psychiatric: Reports system reviewed and no additional complaints, except as documented Endocrine Endocrine: Reports fatigue Hematologic/Lymphatic Hematologic/Lymphatic: Denies easy bleeding and Denies easy bruising Allergic/Immunologic Allergic/Immunologic: Reports wheezing PFSH All Active Problems (Updated 07/01/24 @ 18:09 by Scott Gilbert MD) Hepatitis (Acute) Lung nodule seen on imaging study (Acute) Acute exacerbation of chronic obstructive pulmonary disease (Acute) Corns and callosities (Acute) Porokeratosis (Acute) Plantar verruca (Acute) Dermatitis (Acute ~12/2022) 01/23/23 DH Derm, Punch BX done 03/04/23 F/U Derm Pityriasis lichenoides (Acute) Lymphadenopathy (Acute) Pre-diabetes (Acute) Tinnitus, right (Acute) Dysfunction of right eustachian tube (Acute) SOB (shortness of breath) (Acute) Wheeze (Acute) Cough (Acute) Vertigo (Acute) Osteoarthritis of left hip (Acute) Left hip pain (Acute) Nausea (Acute) Lightheaded (Acute) Headache (Acute) Dizziness (Acute) Gastric peptic ulcer (Acute) Pt says she cannot tolerate any NSAIDs Asthmatic bronchitis (Acute) Cough (Acute) Sinusitis (Acute) Hemorrhoids (Acute) Diverticulosis (Acute) Trochanteric bursitis, right hip (Acute 03/31/18) Numbness of right anterior thigh (Acute 03/19/16) Chronic hip pain after total replacement of right hip joint (Acute 12/18/17) Adhesive capsulitis of left shoulder (Acute 04/23/16) Dysphagia (Acute) Nodule of right lung (Acute) Right apex 3.5 mm. f/u CT due October 2019 HTN (hypertension), benign (Acute) Tobacco use disorder (Acute) Osteoarthritis of right hip (Acute) Medical History Tobacco abuse GERD (gastroesophageal reflux disease) Ulcer Multiple environmental allergies Hypertension Hyperlipidemia Restrictive lung disease Gastritis Arthritis Shoulder pain Surgical History History of tonsillectomy Hx of shoulder surgery S/P colonoscopy History of esophagogastroduodenoscopy (EGD) (~07/13/19) History of colonoscopy (~07/13/19) Tubular adenoma History of neck surgery History of carpal tunnel release History of hip replacement EGD - MAC (08/27/17) Family History Father Cancer of bone Leukemia Mother COPD (chronic obstructive pulmonary disease) Diabetes Hypertension Brother Lung cancer Stage 3 A Social History Smoking/Tobacco Use Status: Current every day Tobacco Type: cigarettes Smoking packs per day: 0.5 Smoking cigarettes per day: 10.0 Quit status: considering quitting Smoking risk assessment performed?: Yes Alcohol Intake: current Alcohol Intake frequency: holidays/special occasions only Alcohol type: beer Details: OCCASIONALLY Drug use: Never Substance use type: does not use Counseling given: No Adopted: No Household members: spouse Housing: house Number of Children: 3 number of grandchildren: 2 Communication Needs: Corrective Lenses Do you need help understanding health information?: Never current occupation: Disabled Pets and animals: Yes Pets and animals: cat(s) and bird(s) Sexually active: No Do you think of yourself as: straight/heterosexual Current gender identity: female What is your relationship status?: How often do you talk on the phone with friends or family?: three or more times per week How often do you get together with friends or relatives?: once per week How often do you attend yazidi or congregation services?: decline to answer Panel score (0-1 are the most socially isolated patients): 2 What type of physical activity do you participate in: none Special stephanie needs: No Seatbelt use: always Drive 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 ride w/intox 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 Working smoke detector in home: Yes Fire extinguisher in home: Yes Carbon monox detector in home: Yes Firearms in home: No Do you feel safe at home: Yes Do you feel safe in your relationship?: Yes Additional Social history: unable to talk privately Meds Allergies and Home Medications Allergies Allergy/AdvReac Type Severity Reaction Status Date / Time Influenza Virus Vaccines Allergy Severe stomach Verified 07/01/24 11:07 cramps oxycodone HCl (From Percocet) Allergy Unknown Skin Rash Verified 07/01/24 11:07 erythromycin base (From AdvReac Intermediate Diarrhea Verified 07/01/24 11:07 Erythrocin) banana AdvReac GI upset Verified 07/01/24 11:07 egg AdvReac GI upset Verified 07/01/24 11:07 lactose AdvReac GI upset Verified 07/01/24 11:07 Other Allergy Intermediate h/o Uncoded 07/01/24 11:07 diverticulitis Home Medications ?Medication ?Instructions ?Recorded ?Confirmed ?Type nebulizers (Compact Compressor #1 ea 01/07/20 06/24/24 Rx Nebulizer) fluticasone fur. 100 mcg-umeclid 1 inh inhalation DAILY #60 ea 02/19/22 07/01/24 Rx 62.5 mcg-vilant 25 mcg inhalat.powder (Trelegy Ellipta) fexofenadine [Janeth] PO DAILY 03/05/23 06/24/24 History fluocinonide 0.05 % topical 1 applic topical HS PRN 06/25/23 07/01/24 History solution albuterol sulfate 2.5 mg/3 mL 2.5 mg (3 mL) inhalation QID PRN 09/27/23 07/01/24 Rx (0.083 %) solution for nebulization shortness of breath or wheezing #180 mL albuterol sulfate 90 mcg/actuation 2 puff inhalation 6XD PRN 09/27/23 07/01/24 Rx aerosol inhaler (ProAir HFA) shortness of breath or wheezing #18 grams atorvastatin 40 mg tablet 40 mg PO QPM #90 tabs 06/24/24 07/01/24 Rx famotidine 20 mg tablet 20 mg PO DAILY #90 tabs 06/24/24 07/01/24 Rx lisinopril 30 mg tablet 30 mg PO DAILY #90 tabs 06/24/24 07/01/24 Rx omeprazole 40 mg capsule,delayed 40 mg PO DAILY #90 caps 06/24/24 07/01/24 Rx release Exam Const General: cooperative and comfortable Orientation: alert, awake and oriented x3 HENMT Head: normal to inspection Neck Neck: normal visual inspection, full ROM and no lymphadenopathy Resp Effort & Inspection: normal respiratory effort, audible wheezes and no use of accessory muscles Auscultation: wheezes Cardio Rate: regular rate Rhythm: regular rhythm Heart Sounds: S1 normal and S2 normal GI Inspection: normal to inspection and non-distended Palpation: soft, no guarding and nontender Percussion: normal to percussion Auscultation: normal bowel sounds Results Labs 07/01/24 11:46 07/01/24 11:46 Labs: Laboratory Results - last 24 hr 07/01/24 07/01/24 07/01/24 11:26 11:46 11:46 WBC 7.57 RBC 5.22 Hgb 16.6 H Hct 49.4 H MCV 95 MCH 31.8 MCHC 33.6 RDW 12.1 Plt Count 278 MPV 10.5 Immature Gran % 0.3 Neutrophils % 79.5 Lymphocytes % 9.4 Monocytes % 10.0 Eosinophils % 0.4 Basophils % 0.4 Nucleated RBC % 0.0 Absolute Neutrophils 6.02 Absolute Lymphocytes 0.71 L Absolute Monocytes 0.76 Absolute Eosinophils 0.03 Absolute Basophils 0.03 Sodium Cancelled 140 Potassium Cancelled 4.2 Chloride Cancelled 105 Carbon Dioxide Cancelled 27.5 Anion Gap Cancelled 7.5 BUN Cancelled 6 L Creatinine Cancelled 0.8 Est GFR (CKD-EPI 2020) Cancelled 82.23 Glucose Cancelled 117 H Calcium Cancelled 9.8 Total Bilirubin Cancelled 1.88 H AST Cancelled 957 H ALT Cancelled 979 H Alkaline Phosphatase Cancelled 230 H Troponin I High Sens < 50 Total Protein Cancelled 7.6 Albumin Cancelled 4.0 Lipase 42 Cancelled COVID-19 Source SARS-CoV-2 (PCR) Influenza Type A (PCR) Influenza Type B (PCR) RSV (PCR) 07/01/24 07/01/24 11:50 14:24 WBC RBC Hgb Hct MCV MCH MCHC RDW Plt Count MPV Immature Gran % Neutrophils % Lymphocytes % Monocytes % Eosinophils % Basophils % Nucleated RBC % Absolute Neutrophils Absolute Lymphocytes Absolute Monocytes Absolute Eosinophils Absolute Basophils Sodium Potassium Chloride Carbon Dioxide Anion Gap BUN Creatinine Est GFR (CKD-EPI 2020) Glucose Calcium Total Bilirubin AST ALT Alkaline Phosphatase Troponin I High Sens Cancelled Total Protein Albumin Lipase COVID-19 Source Nasopharynx SARS-CoV-2 (PCR) Negative Influenza Type A (PCR) Negative Influenza Type B (PCR) Negative RSV (PCR) Negative Last Vital Signs Temp 98.2 F 07/01/24 15:11 Pulse 74 07/01/24 15:11 Resp 22 07/01/24 15:11 BP 172/96 H 07/01/24 15:11 Pulse Ox 94 07/01/24 15:11 Time Spent Time spent with Patient: >75 minutes Time was spent: preparing to see the patient(eg.review tests), ordering medications,tests, procedures, referring, communicating with other health rn palliative care, indepentently interpreting results and counseling the patient
--- NOTE | 2024-07-01 17:25 | DI.MRI_ITS ---
Exam(s) MR ABDOMEN WO EXAM: MR ABDOMEN WO CLINICAL HISTORY: stone cbd, elevated lfts, TECHNIQUE: Multiplanar multisequence MRI was performed without IV contrast. MRCP was also performed COMPARISON: CT CT ABDOMEN PELVIS W from 07/01/2024 FINDINGS: Limitation: Blurred by motion artifact. VISUALIZED LUNG BASES: No pleural effusions evident. There is no ascites evident. LIVER: Liver size is normal. There are no ominous focal hepatic lesions. A few tiny benign liver cy sts are noted, measuring less than 1 cm. BILIARY: To the gallbladder appears abnormal. It appears moderately distended and there is perichole cystic fluid. No obvious gallstones in the gallbladder lumen and cystic duct nor within the CBD. CB D diameter is minimally prominent, measuring 8 mm above the pancreatic head. PANCREAS: No evidence of pancreatic mass nor peripancreatic fluid collection. Pancreatic duct diamet er is upper normal throughout the gland. SPLEEN: Spleen is not enlarged and there are no intrasplenic lesions. ADRENALS: There are no significant adrenal masses. KIDNEYS: There 2 benign cysts in the left kidney measuring 1.3 cm and 1 point 4 cm. These do not req uire further workup. No ominous renal masses. No hydronephrosis. No perinephric fluid collections. No cysts evident. ABDOMINAL AORTA: Not enlarged and there is no significant para-aortic adenopathy. ANTERIOR ABDOMINAL WALL/GI: There is no evidence of significant anterior abdominal wall hernia in the field of view of this study.Is no evidence of obvious bowel obstruction. OSSEOUS: There are no significant osseous lesions in the field of view of this study. IMPRESSION: 1. Gallbladder is distended and edematous with some pericholecystic fluid. No obvious intraluminal g allstones. Most probably consistent with acalculous cholecystitis. Recommend follow-up ultrasound/n uclear hepatobiliary imaging. 2. CBD diameter is upper normal-minimally prominent. No obvious mass nor calculi seen within the min imally prominent CBD DATA REPOSITORY:
[2024-07-01] MEDS: Nicotine 14 MG/24 HR PATCH TD (17:34)
[2024-07-01] MEDS: Enoxaparin 40 MG/0.4 ML SYR SC (17:34)
[2024-07-01 19:16] LABS: Acetaminophen < 2 ug/mL (10-30)
[2024-07-01 19:54] VITALS: BP 154/83; PULSE 80; RESP 20; TEMP 37.4; O2SAT 90
[2024-07-01] MEDS: Omeprazole 20 MG CAPCR PO (19:58)
[2024-07-01] MEDS: HYDROmorphone 2 MG/ML SYR 0.5 MG IVP (21:56)
--- NOTE | 2024-07-02 | DI.NM_ITS ---
Exam(s) NM HEPATOBILIARY CCK GRP EXAM: NM HEPATOBILIARY CCK GRP CLINICAL HISTORY: Acalculous cholecystitis. TECHNIQUE: Injected dose: 5 mCi Tc-99 mebrofenin Initial dynamic images: 60 minutes COMPARISON: US US ABDOMEN LIMITED from 07/02/[address] and MRI studies were also reviewed FINDINGS: There is normal uptake and excretion of radiopharmaceutical by the liver and activity is seen down th e CBD and into the duodenal C-loop and proximal left upper quadrant bowel loops shortly thereafter. However, there is non visualization of the gallbladder at 90 minutes. It appears that a 2 hour delayed image was performed which did reveal some activity in the gallbladde r lumen. CCK infusion was apparently performed and revealed a severely diminished ejection fraction of only 3 percent. Normal is greater than 35 percent IMPRESSION: Abnormal study. Findings are consistent with acute cholecystitis. This finding is consistent with findings on recent MRI and CT scan. I note that ultrasound performed earlier today revealed sludge in the gallbladder without shadowing c alculi. This is therefore most probably acalculus cholecystitis. SN guidelines: Gallbladder visualization should be present by 3 hours. Delayed [id number] diaz sit beyond 60 min raises the suspicion for partial common bile duct (CBD) obstruction. Gallbladder ejection fraction <35% has a good correlation with acalculous disease (i.e., chronic acal culous cholecystitis, cystic duct syndrome, sphincter of Oddi disease).
--- NOTE | 2024-07-02 | DI.US_ITS ---
Exam(s) US ABDOMEN LIMITED EXAM: US ABDOMEN LIMITED CLINICAL HISTORY: gallbladder TECHNIQUE: Ultrasound abdomen performed using standard protocol. COMPARISON: No exams were available for comparison FINDINGS: PANCREAS: Normal where visualized. GALLBLADDER:No evidence of cholelithiasis. No evidence of wall thickening. No pericholecystic fluid i dentified. There is sludge seen within the gallbladder. BILIARY SYSTEM: Common bile duct measures 8 mm. No intrahepatic biliary ductal dilation. PAVON'S SIGN: Negative. IMPRESSION: There is gallbladder sludge present. No gallstones are seen. DATA REPOSITORY:
[2024-07-02 04:50] VITALS: BP 149/88; PULSE 94; RESP 18; TEMP 38.1; O2SAT 90
[2024-07-02] MEDS: HYDROmorphone 2 MG/ML SYR 0.5 MG IVP ×2 (04:52→20:09)
[2024-07-02] MEDS: Lactated Ringers 1,000 ML 75 ML IV (06:17)
[2024-07-02 06:47] LABS: HCT 42.7 % (36.0-46.0); HGB 14.1 g/dL (11.2-15.7); MCH 31.3 pg (27.0-33.0); MCV 95 fL (80-95); MPV 10.7 fL (8.0-11.0); Platelet Count 229 10^3/uL (130-400); RBC 4.51 10^6/uL (3.93-5.22); RDW 12.2 % (11.7-14.6); RDW-SD 42.7 fL
[2024-07-02 07:08] LABS: ALT 566 U/L (14-59); AST 226 U/L (15-37); Albumin 3.2 g/dL (3.4-5.0); Alkaline Phosphatase 192 U/L (46-116); Bilirubin, Direct 0.5 mg/dL (0.0-0.2); Bilirubin, Total 1.24 mg/dL (0.2-1.0); Lipase 32 U/L (16-77); Total Protein 6.4 g/dL (6.4-8.2)
[2024-07-02] MEDS: Omeprazole 20 MG CAPCR PO ×2 (07:27→20:09)
[2024-07-02] MEDS: Normal Saline Flush 10 ML SYR IVP ×2 (07:28→20:09)
[2024-07-02 08:15] VITALS: BP 131/85; PULSE 89; RESP 16; TEMP 36.7; O2SAT 92
[2024-07-02] MEDS: Lisinopril 10 MG TAB 30 MG PO (08:18)
--- NOTE | 2024-07-02 09:00 | W.PM.PROGNOT ---
Date of Service Date of service: 07/02/24 Time of Service: 09:01 Assessment and Plan Assessment and plan (1) Hepatitis: Status: Acute Assessment and plan: After looking at her labs they seem to be more hepatic in nature than cholestatic. I think this represents more of a acute hepatic insult. I did order some follow-up labs to look at. Acute hepatitis profile is pending but that will be back for several days. Numbers are improving, which is reassuring. Tylenol levels were normal (2) HTN (hypertension), benign: Status: Acute (3) Pre-diabetes: Status: Acute (4) Diverticulosis: Status: Acute (5) Hemorrhoids: Status: Acute (6) Asthmatic bronchitis: Status: Acute (7) Tobacco use disorder: Status: Acute Subjective Subjective Interval history since last seen: Patient noted that when she finally did get the HIDA scan done, injection of the CCK did produce the same symptoms the right upper quadrant pain that radiated around to her back and nausea. She also had an ultrasound which did show sludge. She has no fever white count at this time. She would like to have her gallbladder removed. So in light of this new information plan on doing surgery in AM. In the postop period when she is covered we will trend her ferritin. They may be elevated as an acute phase reactant. If they do not come down within the next 3 to 6 months of her covering then we will have her follow-up with hematology. Plan:? The patient will be scheduled for laparoscopic cholecystectomy. They were given an information booklet on GB Dx and surgery.? The alternatives to surgery, risks, complications, and the possible need to convert to open cholecystectomy were discussed. Also bleeding, infection, pneumonia, blood clots, complications of anesthesia, damage to bowel, bladder, blood vessels, or bile ducts, liver, need for blood transfusions. Also: chronic pain, chronic diarrhea/post-kamla syndrome, reoccurrence of signs and symptoms, port site hernias, adhesions.? All questions were answered, and the patient elected to proceed with surgery. Also d/w pt dietary restrictions, pt was given a handout on GB diet tips they should follow prior to surgery and for 2-6 wks after surgery, any warning signs to look for and when to go to ER- (severe pain, inability to keep fluids down, fever, jaundice). We will plan on doing surgery at some point tomorrow at noon. It would probably be later in the day so we will keep her overnight and plan discharge on Saturday morning. We discussed expectations for the postop state and recovery time, and return to work (if applicable). LFTs are coming down nicely. Ferritin is elevated at 360 HIDA FINDINGS: There is normal uptake and excretion of radiopharmaceutical by the liver and activity is seen down the CBD and into the duodenal C-loop and proximal left upper quadrant bowel loops shortly thereafter. However, there is non visualization of the gallbladder at 90 minutes. It appears that a 2 hour delayed image was performed which did reveal some activity in the gallbladder lumen. CCK infusion was apparently performed and revealed a severely diminished ejection fraction of only 3 percent. Normal is greater than 35 percent IMPRESSION: Abnormal study. Findings are consistent with acute cholecystitis. This finding is consistent with findings on recent MRI and CT scan. I note that ultrasound performed earlier today revealed sludge in the gallbladder without shadowing calculi. This is therefore most probably acalculus cholecystitis. This document was created with voice activated software and may contain errors. [25mins spent in direct pt care and 35 ID in non face to face time Exam Resp Effort & Inspection: normal respiratory effort and able to speak in complete sentences Auscultation: clear to auscultation bilaterally and no wheezes Cardio Rate: regular rate Rhythm: regular rhythm GI Other: Patient has never had any abdominal surgeries before. She has no umbilical hernia. She has moderate pain in the right upper quadrant that radiates around in a bandlike fashion to her back. She is also complaining. Of nausea. Objective Last Vital Signs Temp 36.7 C 07/02/24 08:15 Pulse 89 07/02/24 08:15 Resp 16 07/02/24 08:15 BP 131/85 07/02/24 08:15 Pulse Ox 92 07/02/24 08:15 Laboratory Results - last 24 hr 07/01/24 07/01/24 07/01/24 11:26 11:46 11:46 WBC 7.57 RBC 5.22 Hgb 16.6 H Hct 49.4 H MCV 95 MCH 31.8 MCHC 33.6 RDW 12.1 Plt Count 278 MPV 10.5 Immature Gran % 0.3 Neutrophils % 79.5 Lymphocytes % 9.4 Monocytes % 10.0 Eosinophils % 0.4 Basophils % 0.4 Nucleated RBC % 0.0 Absolute Neutrophils 6.02 Absolute Lymphocytes 0.71 L Absolute Monocytes 0.76 Absolute Eosinophils 0.03 Absolute Basophils 0.03 Sodium Cancelled 140 Potassium Cancelled 4.2 Chloride Cancelled 105 Carbon Dioxide Cancelled 27.5 Anion Gap Cancelled 7.5 BUN Cancelled 6 L Creatinine Cancelled 0.8 Est GFR (CKD-EPI 2020) Cancelled 82.23 Glucose Cancelled 117 H Calcium Cancelled 9.8 Total Bilirubin Cancelled 1.88 H Conjugated Bilirubin AST Cancelled 957 H ALT Cancelled 979 H Alkaline Phosphatase Cancelled 230 H Troponin I High Sens < 50 Total Protein Cancelled 7.6 Albumin Cancelled 4.0 Lipase 42 Cancelled Acetaminophen COVID-19 Source SARS-CoV-2 (PCR) Influenza Type A (PCR) Influenza Type B (PCR) RSV (PCR) 07/01/24 07/01/24 07/01/24 11:50 14:24 18:45 WBC RBC Hgb Hct MCV MCH MCHC RDW Plt Count MPV Immature Gran % Neutrophils % Lymphocytes % Monocytes % Eosinophils % Basophils % Nucleated RBC % Absolute Neutrophils Absolute Lymphocytes Absolute Monocytes Absolute Eosinophils Absolute Basophils Sodium Potassium Chloride Carbon Dioxide Anion Gap BUN Creatinine Est GFR (CKD-EPI 2020) Glucose Calcium Total Bilirubin Conjugated Bilirubin AST ALT Alkaline Phosphatase Troponin I High Sens Cancelled Total Protein Albumin Lipase Acetaminophen < 2 COVID-19 Source Nasopharynx SARS-CoV-2 (PCR) Negative Influenza Type A (PCR) Negative Influenza Type B (PCR) Negative RSV (PCR) Negative 07/02/24 06:30 WBC 7.10 RBC 4.51 Hgb 14.1 D Hct 42.7 MCV 95 MCH 31.3 MCHC 33.0 RDW 12.2 Plt Count 229 MPV 10.7 Immature Gran % Neutrophils % Lymphocytes % Monocytes % Eosinophils % Basophils % Nucleated RBC % Absolute Neutrophils Absolute Lymphocytes Absolute Monocytes Absolute Eosinophils Absolute Basophils Sodium Potassium Chloride Carbon Dioxide Anion Gap BUN Creatinine Est GFR (CKD-EPI 2020) Glucose Calcium Total Bilirubin 1.24 H Conjugated Bilirubin 0.5 H AST 226 H ALT 566 H Alkaline Phosphatase 192 H Troponin I High Sens Total Protein 6.4 Albumin 3.2 L Lipase 32 Acetaminophen COVID-19 Source SARS-CoV-2 (PCR) Influenza Type A (PCR) Influenza Type B (PCR) RSV (PCR) Time Spent with Patient Time Spent with Patient: >50 minutes Time was spent: preparing to see the patient(eg.review tests), obtaining and/or reviewing separately otained hiistory, ordering medications,tests, procedures, referring, communicating with other health health care / medical job titles, indepentently interpreting results, counseling the patient, care coordination and other
[2024-07-02] MEDS: Nicotine 14 MG/24 HR PATCH TD (09:38)
[2024-07-02 09:58] LABS: C-Reactive Protein 2.68 mg/dL (<or=0.5); GGT 613 U/L (5-55); LDH 235 U/L (81-234)
[2024-07-02 10:30] LABS: Ferritin 359 ng/mL (8-252)
[2024-07-02 10:36] LABS: INR 1.2 (0.9-1.1); Prothrombin Time 11.6 sec (9.1-11.1)
--- NOTE | 2024-07-02 10:42 | PDOC.CMIN ---
Date of service: 07/02/24 Time of Service: 10:42 Care Management Initial Assmt Initial Assessment Reason for Hospitalization: Acute hepatitis Functional Status/Living Situation Patient Presentation: Lisa was sitting in a chair when CM met with her. She is accompanied by her Laz. Lisa is planning to go down for a HIDA scan within the next 35 minutes and expresses her frustration with the timing of this procedure and not being able to eat. Town of Residence: [place] Resides with: Spouse ( Laz) Significant Other/Family: [facility] Employment Status: Disabled Instrumental Activities of Daily Living (ADLs): Independent Medications Medication Management: No Issues/Barriers identified Physical Functioning/Mobility Assistive Device: None Advance Directives Advance Directives: Do you have an Advance Directive: N 12/26/15 10:35 AD [facility]: N 07/20/15 13:48 Date Asked 07/01/24 07/01/24 11:05 AD Date Reviewed COLST On File at [facility] COLST Date Scanned Code Status Resuscitation Status Full Code Insurance Coverage/Financial Issues Insurance: [employer] [place] Medicaid Financial Issues: None identified, CM provided brochure and overview of [facility] services. Care Team Visit Care Team Role Provider Type Suzi Irving NP Primary Care Provider NURSE PRACTITIONER [facility] Provider [employer] MAT[employer] IMPROVEMENT TEACHER Scott Gilbert MD Admit Provider [facility] STAFF PHYSICIAN Attending Provider Discharge Potential Discharge Needs: PT Evaluation, PCP F/U Appt and Surgical F/U Appt Anticipated Barriers to Discharge: Medical Status Patient/Family Education Needs: Review discharge instructions, discuss Ask Me Three Transportation: Private vehicle Plan: Further medical workup and testing being done. Lisa is currently NPO and eager for her diet to advance. CM will follow and support discharge planning considerations when known. PFSH All Active Problems (Updated 07/01/24 @ 18:09 by Scott Gilbert MD) Hepatitis (Acute) Lung nodule seen on imaging study (Acute) Acute exacerbation of chronic obstructive pulmonary disease (Acute) Corns and callosities (Acute) Porokeratosis (Acute) Plantar verruca (Acute) Dermatitis (Acute ~12/2022) 01/23/23 DH Derm, Punch BX done 03/04/23 F/U Derm Pityriasis lichenoides (Acute) Lymphadenopathy (Acute) Pre-diabetes (Acute) Tinnitus, right (Acute) Dysfunction of right eustachian tube (Acute) SOB (shortness of breath) (Acute) Wheeze (Acute) Cough (Acute) Vertigo (Acute) Osteoarthritis of left hip (Acute) Left hip pain (Acute) Nausea (Acute) Lightheaded (Acute) Headache (Acute) Dizziness (Acute) Gastric peptic ulcer (Acute) Pt says she cannot tolerate any NSAIDs Asthmatic bronchitis (Acute) Cough (Acute) Sinusitis (Acute) Hemorrhoids (Acute) Diverticulosis (Acute) Trochanteric bursitis, right hip (Acute 03/31/18) Numbness of right anterior thigh (Acute 03/19/16) Chronic hip pain after total replacement of right hip joint (Acute 12/18/17) Adhesive capsulitis of left shoulder (Acute 04/23/16) Dysphagia (Acute) Nodule of right lung (Acute) Right apex 3.5 mm. f/u CT due October 2019 HTN (hypertension), benign (Acute) Tobacco use disorder (Acute) Osteoarthritis of right hip (Acute) Medical History Tobacco abuse GERD (gastroesophageal reflux disease) Ulcer Multiple environmental allergies Hypertension Hyperlipidemia Restrictive lung disease Gastritis Arthritis Shoulder pain Surgical History History of tonsillectomy Hx of shoulder surgery S/P colonoscopy History of esophagogastroduodenoscopy (EGD) (~07/13/19) History of colonoscopy (~07/13/19) Tubular adenoma History of neck surgery History of carpal tunnel release History of hip replacement EGD - MAC (08/27/17) Family History Father Cancer of bone Leukemia Mother COPD (chronic obstructive pulmonary disease) Diabetes Hypertension Brother Lung cancer Stage 3 A Social History Smoking/Tobacco Use Status: Current every day Tobacco Type: cigarettes Smoking packs per day: 0.5 Smoking cigarettes per day: 10.0 Quit status: considering quitting Smoking risk assessment performed?: Yes Alcohol Intake: current Alcohol Intake frequency: holidays/special occasions only Alcohol type: beer Details: OCCASIONALLY Drug use: Never Substance use type: does not use Counseling given: No Adopted: No Household members: spouse Housing: house Number of Children: 3 number of grandchildren: 2 Communication Needs: Corrective Lenses Do you need help understanding health information?: Never current occupation: Disabled Pets and animals: Yes Pets and animals: cat(s) and bird(s) Sexually active: No Do you think of yourself as: straight/heterosexual Current gender identity: female What is your relationship status?: How often do you talk on the phone with friends or family?: three or more times per week How often do you get together with friends or relatives?: once per week How often do you attend jew or cheondoism services?: decline to answer Panel score (0-1 are the most socially isolated patients): 2 What type of physical activity do you participate in: none Special stephanie needs: No Seatbelt use: always Drive intox or ride w/intox shuttle bus driver: No Working smoke detector in home: Yes Fire extinguisher in home: Yes Carbon monox detector in home: Yes Firearms in home: No Do you feel safe at home: Yes Do you feel safe in your relationship?: Yes Additional Social history: unable to talk privately SDOH(Care Management) Screening Will the Patient Participate in the Screening?: Declined to provide
--- NOTE | 2024-07-02 11:54 | PHA.REVIEW2 ---
Pharmacy Admission Review Admission Clinical Review Admission Pharmacy Review: Hepatitis (Acute) Pre-diabetes (Acute) Asthmatic bronchitis (Acute) Hemorrhoids (Acute) Diverticulosis (Acute) HTN (hypertension), benign (Acute) Tobacco use disorder (Acute) Influenza Virus Vaccines Allergy (Severe, Verified 07/01/24 11:07) stomach cramps oxycodone HCl (From Percocet) Allergy (Unknown, Verified 07/01/24 11:07) Skin Rash erythromycin base (From Erythrocin) Adverse Reaction (Intermediate, Verified 07/01/24 11:07) Diarrhea banana Adverse Reaction (Verified 07/01/24 11:07) GI upset egg Adverse Reaction (Verified 07/01/24 11:07) GI upset lactose Adverse Reaction (Verified 07/01/24 11:07) GI upset Other Allergy (Intermediate, Uncoded 07/01/24 11:07) h/o diverticulitis Resuscitation Status Full Code Height 5 ft 2 in Weight 71.214 kg Comments Comments/Follow Ups: Per progress note, provider leaning towards hepatitis and not choledocholithiasis. Labs for hepatitis pending. Pharmacy Admission Review Renal Dosing Renal Dosing: BUN 6 mg/dL (7-18) L 07/01/24 11:46 Creatinine 0.8 mg/dL (0.55-1.02) 07/01/24 11:46 Medications needing adjustments: Reviewed (CrCl 52.53 mL/min) List of meds needing interventions: Current medications are okay Anticoagulation Anticoagulation: Hgb 14.1 g/dL (11.2-15.7) D 07/02/24 06:30 Hct 42.7 % (36.0-46.0) 07/02/24 06:30 Plt Count 229 10^3/uL (130-400) 07/02/24 06:30 INR 1.2 (0.9-1.1) H 07/02/24 10:20 Creatinine 0.8 mg/dL (0.55-1.02) 07/01/24 11:46 DVT Prophylaxis: Reviewed (Hgb decreased from 16.6) Medications: Enoxaparin (40mg daily) Opiate Usage Evaluate Pain Scale/Pains Meds: Reviewed (PRN hydromorphone IVP) Scheduled Bowel Reg ordered if on Opiates?: No Relevant Labs Relevant Labs: Sodium 140 mmol/L (136-145) 07/01/24 11:46 Potassium 4.2 mmol/L (3.5-5.1) 07/01/24 11:46 Chloride 105 mmol/L (98-107) 07/01/24 11:46 C-Reactive Protein 2.68 mg/dL (<or=0.5) H 07/02/24 06:30 Electrolytes, C-Reactive P, ESR: Reviewed (AST/ALT decreased from 957/979 to 226/566) Cardiac Review BP, HR, EF%: Reviewed (BP and HR WNL) QTc Review QTc: Reviewed (425 from 07/01/24) IV to PO Switch IV Medications: Reviewed (hydromorphone and ondansetron) Home Meds Home Med List reviewed: Reviewed Relevent Home Meds Not ordered & why?: Atorvastatin (possible hepatitis), famotidine (has order for omeprazole), fexofenadine and Trelegy (no fill history) Current Meds Current Medication Order Review: Reviewed Pharmacy Antibiotic Review Relevant Labs: Relevant Labs 07/02/24 06:30 Lactate Dehydrogenase 235 H C-Reactive Protein 2.68 H Comments Comments/Follow Ups: Per progress note, provider leaning towards hepatitis and not choledocholithiasis. Labs for hepatitis pending.
--- NOTE | 2024-07-02 13:10 | CHAPLAIN ---
Lisa was up in a chair when I visited. Her was with her. She was waiting to go for a HIDA scan and looking forward to eating afterward. She was nervous about a rn medicare visiting her thinking it meant I was bring her bad news, so I explained that I visit everyone and was not delivering bad news.
[2024-07-02] MEDS: Sincalide 5 MCG VIAL 1.1 MCG IJ (16:02)
[2024-07-02] MEDS: Water,Injection,Sterile 10 ML VIAL IJ (16:06)
--- NOTE | 2024-07-02 16:51 | ED.GENADUL_ITS ---
Discharge Plan Disposition Patient Disposition: Admit to [facility] Discharge Details Admit Date/Time: 07/01/24 13:33 Admit Provider: Scott Gilbert Attending Provider: Scott Gilbert Primary Care Provider: Suzi Irving ED Provider: Ira Her Discharge Data Discharge Date/Time-TO BE ENTERED AT DEPARTURE: 07/01/24 14:32 HPI General Date/Time Provider Initiated Documentation: 07/01/24 11:14 . HPI Narrative: this 63-year-old female presents with report of epigastric pain that started approximately 4 days prior to arrival. Denies any exacerbating or remitting factors. Denies any associated chest pain or shortness of breath. Nausea with 1 episode of vomiting. Denies any diarrhea. Denies history of similar symptoms in the past or prior significant abdominal surgeries. Related Data Home Medications ?Medication ?Instructions ?Recorded ?Confirmed nebulizers (Compact Compressor #1 ea 01/07/20 06/24/24 Nebulizer) fluticasone fur. 100 mcg-umeclid 1 inh inhalation DAILY #60 ea 02/19/22 07/01/24 62.5 mcg-vilant 25 mcg inhalat.powder (Trelegy Ellipta) fexofenadine [Janeth] PO DAILY 03/05/23 06/24/24 fluocinonide 0.05 % topical 1 applic topical HS PRN 06/25/23 07/01/24 solution albuterol sulfate 2.5 mg/3 mL 2.5 mg (3 mL) inhalation QID PRN 09/27/23 07/01/24 (0.083 %) solution for nebulization shortness of breath or wheezing #180 mL albuterol sulfate 90 mcg/actuation 2 puff inhalation 6XD PRN 09/27/23 07/01/24 aerosol inhaler (ProAir HFA) shortness of breath or wheezing #18 grams atorvastatin 40 mg tablet 40 mg PO QPM #90 tabs 06/24/24 07/01/24 famotidine 20 mg tablet 20 mg PO DAILY #90 tabs 06/24/24 07/01/24 lisinopril 30 mg tablet 30 mg PO DAILY #90 tabs 06/24/24 07/01/24 omeprazole 40 mg capsule,delayed 40 mg PO DAILY #90 caps 06/24/24 07/01/24 release Previous Rx's ?Medication ?Instructions ?Recorded nebulizers (Compact Compressor #1 ea 01/07/20 Nebulizer) fluticasone fur. 100 mcg-umeclid 1 inh inhalation DAILY #60 ea 02/19/22 62.5 mcg-vilant 25 mcg inhalat.powder (Trelegy Ellipta) albuterol sulfate 2.5 mg/3 mL 2.5 mg (3 mL) inhalation QID PRN 09/27/23 (0.083 %) solution for nebulization shortness of breath or wheezing #180 mL albuterol sulfate 90 mcg/actuation 2 puff inhalation 6XD PRN 09/27/23 aerosol inhaler (ProAir HFA) shortness of breath or wheezing #18 grams atorvastatin 40 mg tablet 40 mg PO QPM #90 tabs 06/24/24 famotidine 20 mg tablet 20 mg PO DAILY #90 tabs 06/24/24 lisinopril 30 mg tablet 30 mg PO DAILY #90 tabs 06/24/24 omeprazole 40 mg capsule,delayed 40 mg PO DAILY #90 caps 06/24/24 release Allergies Allergy/AdvReac Type Severity Reaction Status Date / Time Influenza Virus Vaccines Allergy Severe stomach Verified 07/01/24 11:07 cramps oxycodone HCl (From Percocet) Allergy Unknown Skin Rash Verified 07/01/24 11:07 erythromycin base (From AdvReac Intermediate Diarrhea Verified 07/01/24 11:07 Erythrocin) banana AdvReac GI upset Verified 07/01/24 11:07 egg AdvReac GI upset Verified 07/01/24 11:07 lactose AdvReac GI upset Verified 07/01/24 11:07 Other Allergy Intermediate h/o Uncoded 07/01/24 11:07 diverticulitis General Stated Complaint: Abd Prob JAYME: 3 Exam Narrative Exam Narrative: Alert and oriented 63-year-old female who appears quite uncomfortable. Right upper quadrant tenderness with epigastric tenderness, no right flank tenderness, neurovascularly intact no rebound or guarding Course Vital Signs Vital signs: Vital Signs Temperature 36.5 C 07/01/24 11:01 Pulse 81 07/01/24 11:01 Respiratory Rate 16 07/01/24 11:01 Blood Pressure 157/97 H 07/01/24 11:01 Pulse Oximetry 96 07/01/24 11:01 Temperature 36.7 C 07/02/24 08:15 Temperature Source Tympanic 07/02/24 08:15 Pulse 89 07/02/24 08:15 Pulse Rhythm Regular 07/01/24 15:11 Respiratory Rate 16 07/02/24 08:15 Respiratory Effort Normal, Non-Labored, Short of Breath 07/01/24 15:11 Respiratory Depth Normal 07/01/24 15:11 Respiratory Pattern Normal 07/01/24 15:11 Blood Pressure 131/85 07/02/24 08:15 Blood Pressure Position Sitting 07/01/24 11:01 Pulse Oximetry 92 07/02/24 08:15 Oxygen Delivery Method Room Air 07/02/24 08:15 Oxygen Flow Rate 0 07/02/24 08:15 Pain Level 0 07/02/24 08:15 Comment Patient refusing vital signs at this time 07/01/24 23:10 Lab/Test Results Lab/Test Results: Laboratory Tests Range/Units 07/01/24 07/01/24 07/01/24 11:26 11:46 11:46 WBC (4.4-10.8) 10^3/uL 7.57 RBC (3.93-5.22) 10^6/uL 5.22 Hgb (11.2-15.7) g/dL 16.6 H Hct (36.0-46.0) % 49.4 H MCV (80-95) fL 95 MCH (27.0-33.0) pg 31.8 MCHC (32.0-36.0) % 33.6 RDW (11.7-14.6) % 12.1 Plt Count (130-400) 10^3/uL 278 MPV (8.0-11.0) fL 10.5 Immature Gran % % 0.3 Neutrophils % % 79.5 Lymphocytes % % 9.4 Monocytes % % 10.0 Eosinophils % % 0.4 Basophils % % 0.4 Nucleated RBC % (0.0-0.3) % 0.0 Absolute Neutrophils (1.2-6.7) 10^3/uL 6.02 Absolute Lymphocytes (1.2-3.4) 10^3/uL 0.71 L Absolute Monocytes (0.1-0.8) 10^3/uL 0.76 Absolute Eosinophils (0.0-0.7) 10^3/uL 0.03 Absolute Basophils (0.0-0.2) 10^3/uL 0.03 Sodium Cancelled 140 Potassium Cancelled 4.2 Chloride Cancelled 105 Carbon Dioxide Cancelled 27.5 Anion Gap Cancelled 7.5 BUN Cancelled 6 L Creatinine Cancelled 0.8 Est GFR (CKD-EPI 2020) Cancelled 82.23 Glucose Cancelled 117 H Calcium Cancelled 9.8 Total Bilirubin Cancelled 1.88 H AST Cancelled 957 H ALT Cancelled 979 H Alkaline Phosphatase Cancelled 230 H Troponin I High Sens (< or =60) ng/L < 50 Total Protein Cancelled 7.6 Albumin Cancelled 4.0 Lipase (16-77) U/L 42 Cancelled COVID-19 Source SARS-CoV-2 (PCR) (Negative) Influenza Type A (PCR) (Negative) Influenza Type B (PCR) (Negative) RSV (PCR) (Negative) Range/Units 07/01/24 11:50 WBC (4.4-10.8) 10^3/uL RBC (3.93-5.22) 10^6/uL Hgb (11.2-15.7) g/dL Hct (36.0-46.0) % MCV (80-95) fL MCH (27.0-33.0) pg MCHC (32.0-36.0) % RDW (11.7-14.6) % Plt Count (130-400) 10^3/uL MPV (8.0-11.0) fL Immature Gran % % Neutrophils % % Lymphocytes % % Monocytes % % Eosinophils % % Basophils % % Nucleated RBC % (0.0-0.3) % Absolute Neutrophils (1.2-6.7) 10^3/uL Absolute Lymphocytes (1.2-3.4) 10^3/uL Absolute Monocytes (0.1-0.8) 10^3/uL Absolute Eosinophils (0.0-0.7) 10^3/uL Absolute Basophils (0.0-0.2) 10^3/uL Sodium Potassium Chloride Carbon Dioxide Anion Gap BUN Creatinine Est GFR (CKD-EPI 2020) Glucose Calcium Total Bilirubin AST ALT Alkaline Phosphatase Troponin I High Sens (< or =60) ng/L Total Protein Albumin Lipase (16-77) U/L COVID-19 Source Nasopharynx SARS-CoV-2 (PCR) (Negative) Negative Influenza Type A (PCR) (Negative) Negative Influenza Type B (PCR) (Negative) Negative RSV (PCR) (Negative) Negative Medical Decision Making 62-year-old female presenting with epigastric and right upper quadrant pain, exquisitely tender in the right upper quadrant without rebound or guarding, case discussed with Dr. Gilbert, surgery will admit patient to his service secondary to acute hepatitis in the presence of concern for CBD stone. Dr. Gilbert reviewed CTs findings and we discussed them. Scheduled for MRCP and admitted under Dr. Gilbert. Patient does have acute hepatitis. Note denies any recent treatments. Feeling improvement after Dilaudid this 8 mg of morphine 1 mg. Agreeable to admission at this time. Quality:SDOH Health Related Social Needs: No Data to Display PFSH All Active Problems (Updated 07/01/24 @ 18:09 by Scott Gilbert MD) Hepatitis (Acute) Lung nodule seen on imaging study (Acute) Acute exacerbation of chronic obstructive pulmonary disease (Acute) Corns and callosities (Acute) Porokeratosis (Acute) Plantar verruca (Acute) Dermatitis (Acute ~12/2022) 01/23/23 DH Derm, Punch BX done 03/04/23 F/U Derm Pityriasis lichenoides (Acute) Lymphadenopathy (Acute) Pre-diabetes (Acute) Tinnitus, right (Acute) Dysfunction of right eustachian tube (Acute) SOB (shortness of breath) (Acute) Wheeze (Acute) Cough (Acute) Vertigo (Acute) Osteoarthritis of left hip (Acute) Left hip pain (Acute) Nausea (Acute) Lightheaded (Acute) Headache (Acute) Dizziness (Acute) Gastric peptic ulcer (Acute) Pt says she cannot tolerate any NSAIDs Asthmatic bronchitis (Acute) Cough (Acute) Sinusitis (Acute) Hemorrhoids (Acute) Diverticulosis (Acute) Trochanteric bursitis, right hip (Acute 03/31/18) Numbness of right anterior thigh (Acute 03/19/16) Chronic hip pain after total replacement of right hip joint (Acute 12/18/17) Adhesive capsulitis of left shoulder (Acute 04/23/16) Dysphagia (Acute) Nodule of right lung (Acute) Right apex 3.5 mm. f/u CT due October 2019 HTN (hypertension), benign (Acute) Tobacco use disorder (Acute) Osteoarthritis of right hip (Acute) Medical History Tobacco abuse GERD (gastroesophageal reflux disease) Ulcer Multiple environmental allergies Hypertension Hyperlipidemia Restrictive lung disease Gastritis Arthritis Shoulder pain Surgical History History of tonsillectomy Hx of shoulder surgery S/P colonoscopy History of esophagogastroduodenoscopy (EGD) (~07/13/19) History of colonoscopy (~07/13/19) Tubular adenoma History of neck surgery History of carpal tunnel release History of hip replacement EGD - MAC (08/27/17) Family History Father Cancer of bone Leukemia Mother COPD (chronic obstructive pulmonary disease) Diabetes Hypertension Brother Lung cancer Stage 3 A Social History Smoking/Tobacco Use Status: Current every day Tobacco Type: cigarettes Smoking packs per day: 0.5 Smoking cigarettes per day: 10.0 Quit status: considering quitting Smoking risk assessment performed?: Yes Alcohol Intake: current Alcohol Intake frequency: holidays/special occasions only Alcohol type: beer Details: OCCASIONALLY Drug use: Never Substance use type: does not use Counseling given: No Adopted: No Household members: spouse Housing: house Number of Children: 3 number of grandchildren: 2 Communication Needs: Corrective Lenses Do you need help understanding health information?: Never current occupation: Disabled Pets and animals: Yes Pets and animals: cat(s) and bird(s) Sexually active: No Do you think of yourself as: straight/heterosexual Current gender identity: female What is your relationship status?: How often do you talk on the phone with friends or family?: three or more times per week How often do you get together with friends or relatives?: once per week How often do you attend tenriism or mormonism services?: decline to answer Panel score (0-1 are the most socially isolated patients): 2 What type of physical activity do you participate in: none Special stephanie needs: No Seatbelt use: always Drive intox or ride w/intox driver/refuse collector: No Working smoke detector in home: Yes Fire extinguisher in home: Yes Carbon monox detector in home: Yes Firearms in home: No Do you feel safe at home: Yes Do you feel safe in your relationship?: Yes Additional Social history: unable to talk privately
[2024-07-02] MEDS: traMADol 50 MG TAB PO ×2 (18:38→22:48)
[2024-07-02 20:06] VITALS: BP 150/89; PULSE 64; RESP 16; TEMP 37.8; O2SAT 96
[2024-07-03] VITALS (17 sets, daily range): BP systolic 125–162; BP diastolic 66–96; PULSE 60–93; RESP 15–23; TEMP 36.1–37.5; O2SAT 91–98; BMI 28.7
[2024-07-03] MEDS: Lactated Ringers 1,000 ML 75 ML IV (00:17)
[2024-07-03] MEDS: traMADol 50 MG TAB PO ×2 (06:09→07:30)
[2024-07-03] MEDS: Omeprazole 20 MG CAPCR PO ×2 (07:08→20:41)
[2024-07-03] MEDS: Lisinopril 10 MG TAB 30 MG PO (07:08)
[2024-07-03] MEDS: Normal Saline Flush 10 ML SYR IVP ×4 (07:08→20:40)
[2024-07-03 11:43] LABS: Hepatitis A Antibody IgM Negative (Negative); Hepatitis B Core Antibody Negative (Negative); Hepatitis B surface Ag Negative (Negative); Hepatitis C Ab w Rflx HCV PCR Negative (Negative)
[2024-07-03 12:40] LABS: ANA Interpretation Negative (Negative)
[2024-07-03] MEDS: HYDROmorphone 2 MG/ML SYR 0.5 MG IVP ×2 (12:56→20:40)
--- NOTE | 2024-07-03 14:03 | W.ANESPRE ---
General Info Date of Service Date Performed: 07/03/24 Height: 5 ft 2 in Weight: 71.214 kg Body Mass Index (BMI): 28.7 Surgical Procedure: Operation Date: 07/03/24 14:10 Proposed Procedure Side Surgeon p Cholecystectomy Laparoscopic Teresa Yadav, Meds Allergies and Home Medications Allergies Allergy/AdvReac Type Severity Reaction Status Date / Time Influenza Virus Vaccines Allergy Severe stomach Verified 07/01/24 11:07 cramps oxycodone HCl (From Percocet) Allergy Unknown Skin Rash Verified 07/01/24 11:07 erythromycin base (From AdvReac Intermediate Diarrhea Verified 07/01/24 11:07 Erythrocin) banana AdvReac GI upset Verified 07/01/24 11:07 egg AdvReac GI upset Verified 07/01/24 11:07 lactose AdvReac GI upset Verified 07/01/24 11:07 Other Allergy Intermediate h/o Uncoded 07/01/24 11:07 diverticulitis Home Medication ?Medication ?Instructions ?Recorded fluticasone fur. 100 mcg-umeclid 1 inh inhalation DAILY #60 ea 02/19/22 62.5 mcg-vilant 25 mcg inhalat.powder (Trelegy Ellipta) fluocinonide 0.05 % topical 1 applic topical HS PRN 06/25/23 solution albuterol sulfate 2.5 mg/3 mL 2.5 mg (3 mL) inhalation QID PRN 09/27/23 (0.083 %) solution for nebulization shortness of breath or wheezing #180 mL albuterol sulfate 90 mcg/actuation 2 puff inhalation 6XD PRN 09/27/23 aerosol inhaler (ProAir HFA) shortness of breath or wheezing #18 grams atorvastatin 40 mg tablet 40 mg PO QPM #90 tabs 06/24/24 famotidine 20 mg tablet 20 mg PO DAILY #90 tabs 06/24/24 lisinopril 30 mg tablet 30 mg PO DAILY #90 tabs 06/24/24 omeprazole 40 mg capsule,delayed 40 mg PO DAILY #90 caps 06/24/24 release Current Visit Medications: Current Medications Generic Name Dose Route Start Last Admin Trade Name Freq PRN Reason Stop Dose Admin Acetaminophen 1,000 mg 07/03/24 10:00 Acetaminophen 500 Mg Tab PO 07/03/24 23:59 PREOP KIRSTY Albuterol Sulfate 2 puff 07/01/24 16:13 Albuterol Hfa 8 Gm 60 Puff Inh IH Q4H PRN PRN Device 1 each 07/01/24 17:00 Inhaler, Assist Device MC DIRECTED KIRSTY Gabapentin 600 mg 07/03/24 10:00 Gabapentin 300 Mg Cap PO 07/03/24 23:59 PREOP KIRSTY Hydromorphone HCl 0.5 mg 07/01/24 16:13 07/03/24 12:56 Hydromorphone 2 Mg/Ml Syr IVP 0.5 mg Q4H PRN PRN Administration Ringer's Solution 1,000 mls @ 75 mls/hr 07/01/24 16:15 07/03/24 00:17 IV 75 mls/hr [facility]ION [facility] [place] Administration Cefazolin Sodium/Dextrose 2 gm in 50 mls @ 100 mls/hr 07/03/24 06:00 Ancef Duplex IVPB 07/03/24 23:59 PREOP [facility] IV Miscellaneous Supplies 1 each 07/01/24 16:15 Iv Access IV DIRECTED [facility] Indocyanine Green 5 mg 07/03/24 09:15 Indocyanine Green 25 Mg Vial IVP 07/03/24 23:59 PREOP KIRSTY Lisinopril 30 mg 07/02/24 08:30 07/03/24 07:08 Lisinopril 10 Mg Tab PO 30 mg QAM KIRSTY Administration Nicotine 14 mg 07/01/24 16:13 07/02/24 09:38 Nicotine 14 Mg/24 Hr Patch TD 14 mg DAILY PRN PRN Administration Omeprazole 20 mg 07/01/24 20:00 07/03/24 07:08 Omeprazole 20 Mg Capcr PO 20 mg BID@0730,2000 KIRSTY Administration Ondansetron HCl 4 mg 07/01/24 16:13 Ondansetron 4 Mg/2 Ml Vial IVP Q4H PRN PRN Sincalide 1.1 mcg 07/02/24 16:15 07/02/24 16:02 Sincalide 5 Mcg Vial IJ 08/01/24 23:59 1.1 mcg DIRECTED KIRSTY Administration Sodium Chloride 0 ml 07/01/24 16:13 07/03/24 12:57 Normal Saline Flush 10 Ml Syr IVP 10 ml PRN PRN Administration Sodium Chloride 0 ml 07/01/24 20:00 07/03/24 07:08 Normal Saline Flush 10 Ml Syr IVP 10 ml BID KIRSTY Administration Sodium Chloride 0 ml 07/01/24 16:13 Normal Saline 10 Ml Vial IJ DIRECTED PRN Sterile Water 10 ml 07/02/24 16:05 07/02/24 16:06 Water,Injection,Sterile 10 Ml Vial IJ 10 ml DIRECTED PRN Administration Tramadol HCl 50 mg 07/02/24 17:09 07/03/24 07:30 Tramadol 50 Mg Tab PO 50 mg Q4H PRN PRN Administration PFSH Active Problems Active Problems: Problem Status Onset Code Hepatitis Acute K75.9 Lung nodule seen on imaging study Acute R91.1 Acute exacerbation of chronic obstructive pulmonary disease Acute J44.1 Corns and callosities Acute L84 Porokeratosis Acute Q82.8 Plantar verruca Acute B07.0 Dermatitis Acute ~12/2022 L30.9 Pityriasis lichenoides Acute 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.0 Lymphadenopathy Acute R59.1 Pre-diabetes Acute R73.03 Tinnitus, right Acute H93.11 Dysfunction of right eustachian tube Acute H69.81 SOB (shortness of breath) Acute R06.02 Wheeze Acute R06.2 Cough Acute R05.9 Vertigo Acute R42 Osteoarthritis of left hip Acute M16.12 Left hip pain Acute M25.552 Nausea Acute R11.0 Lightheaded Acute R42 Headache Acute R51.9 Dizziness Acute R42 Gastric peptic ulcer Acute K25.9 Asthmatic bronchitis Acute J45.909 Cough Acute R05 Sinusitis Acute J32.9 Hemorrhoids Acute K64.9 Diverticulosis Acute K57.90 Trochanteric bursitis, right hip Acute 03/31/18 M70.61 Numbness of right anterior thigh Acute 03/19/16 R20.8 Chronic hip pain after total replacement of right hip joint Acute 12/18/17 M25.551, G89.29, Z96.641 Adhesive capsulitis of left shoulder Acute 04/23/16 M75.02 Dysphagia Acute R13.10 Nodule of right lung Acute R91.1 HTN (hypertension), benign Acute I10 Tobacco use disorder Acute F17.200 Osteoarthritis of right hip Acute M16.11 Medical History Medical History Tobacco abuse GERD (gastroesophageal reflux disease) Ulcer Multiple environmental allergies Hypertension Hyperlipidemia Restrictive lung disease Gastritis Arthritis Shoulder pain Surgical History Surgical History History of tonsillectomy Hx of shoulder surgery S/P colonoscopy History of esophagogastroduodenoscopy (EGD) (~07/13/19) History of colonoscopy (~07/13/19) Tubular adenoma History of neck surgery History of carpal tunnel release History of hip replacement EGD - MAC (08/27/17) Tobacco Smoking/Tobacco Use Status: Current every day Tobacco Type: cigarettes Smoking packs per day: 0.5 Smoking cigarettes per day: 10.0 Alcohol Alcohol Intake: current Alcohol intake frequency: holidays/special occasions only Alcohol type: beer Details: OCCASIONALLY Substance Use Substance use: Never Substance use type: does not use Vital Signs and Lab Results Vital Signs Most Recent Vital Signs in EMR: Most Recent Vital Signs Temp Pulse Resp BP Pulse Ox 36.6 C 72 17 130/80 93 07/03/24 08:36 07/03/24 08:36 07/03/24 08:36 07/03/24 08:36 07/03/24 08:36 Lab Results 07/02/24 06:30 07/01/24 11:46 Blood Type / Crossmatch: No Data to Display Complete Blood Count: White Blood Count 7.10 10^3/uL (4.4-10.8) 07/02/24 06:30 Red Blood Count 4.51 10^6/uL (3.93-5.22) 07/02/24 06:30 Hemoglobin 14.1 g/dL (11.2-15.7) 07/02/24 06:30 Hematocrit 42.7 % (36.0-46.0) 07/02/24 06:30 Platelet Count 229 10^3/uL (130-400) 07/02/24 06:30 Complete Metabolic Panel: Sodium 140 mmol/L (136-145) 07/01/24 11:46 Potassium 4.2 mmol/L (3.5-5.1) 07/01/24 11:46 Chloride 105 mmol/L (98-107) 07/01/24 11:46 Carbon Dioxide 27.5 mmol/L (21.0-32.0) 07/01/24 11:46 BUN 6 mg/dL (7-18) L 07/01/24 11:46 Creatinine 0.8 mg/dL (0.55-1.02) 07/01/24 11:46 Est GFR (CKD-EPI 2020) 82.23 (mL/min/1.73m2) 07/01/24 11:46 Calcium 9.8 mg/dL (8.5-10.1) 07/01/24 11:46 Albumin 3.2 g/dL (3.4-5.0) L 07/02/24 06:30 Glucose 117 mg/dL (74-106) H 07/01/24 11:46 Hemoglobin A1c 5.4 % (4.5-5.7) 06/24/24 08:03 C-Reactive Protein 2.68 mg/dL (<or=0.5) H 07/02/24 06:30 Liver Function Panel: Alanine Aminotransferase (ALT/SGPT) 566 U/L (14-59) H 07/02/24 06:30 Aspartate Amino Transf (AST/SGOT) 226 U/L (15-37) H 07/02/24 06:30 Gamma Glutamyl Transpeptidase 613 U/L (5-55) H 07/02/24 06:30 Coagulation Panel: INR International Normalized Ratio 1.2 (0.9-1.1) H 07/02/24 10:20 Prothrombin Time 11.6 sec (9.1-11.1) H 07/02/24 10:20 Cardiac Panel: No Data to Display Arterial Blood Gas: No Data to Display Venous Blood Gas: No Data to Display Pancreas Panel: Lipase 32 U/L (16-77) 07/02/24 06:30 Thyroid Panel: No Data to Display Infectious Disease: Coronavirus (COVID-19)(PCR) Negative (Negative) 07/01/24 11:50 Coronavirus 2019 Source Nasopharynx 07/01/24 11:50 Influenza Virus Type A (PCR) Negative (Negative) 07/01/24 11:50 Influenza Virus Type B (PCR) Negative (Negative) 07/01/24 11:50 Respiratory Syncytial Virus (PCR) Negative (Negative) 07/01/24 11:50 Hepatitis B Surface Antigen Pending 07/01/24 18:45 Hepatitis C Antibody Pending 07/01/24 18:45 Blood Cultures: No Data to Display Toxicology Panel: No Data to Display Imaging and Studies Imaging and Studies Study information below may be from another EMR and interpreted by another provider. Please see original notes in EMR for more complete details. EKG Summary: 07/21: sinus. Stress Test Summary: 07/13: no defects noted. LVEF 78%. Pulmonary Function Summary: 02/11: mild restrictive lung dz, mild diffusion defect. Anesthesia Assessment and Plan Anesthesia History Personal History: No History of Anesthesia Complications Family History: No Family History of Anesthesia Complications Exercise Tolerance Exercise Tolerance: Metabolic Equivalents>4 Cardiac & Pulmonary Exam Cardiac Exam: Normal S1/S2 Heart Sounds Pulmonary Exam: Clear Bilateral Breath Sounds Implantable Cardiac Device Does patient have a Pacemaker or an ICD?: No Airway Exam Known Difficult Airway: No Mallampati Class: 3 Mouth Opening: Normal (> 3cm) Thyromental Distance: Greater than 3 cm Neck Range of Motion: Full ROM Neck Circumference: Normal Teeth Condition: Removable Dentures/Plates Upper and Edentulous ASA Classification ASA Score: ASA 2 Emergency Case?: No NPO Status NPO Status: NPO Clears >2 hours, Solids >8 hours Anesthesia Plan Resuscitation Status: Full Code Anesthesia Technique: General Anesthesia Airway Planned: Endotracheal Tube Monitors Used: Standard Monitors Preoperative Comments:: 63 yo female for lap kamla. Currently inpt, getting hydromorphone for pain. Sig PMHx: HTN, COPD, GERD (omeprazole. states poorly controlled), preDM, smoker, occ EtOH
[2024-07-03] MEDS: Gabapentin 300 MG CAP 600 MG PO (15:06)
--- NOTE | 2024-07-03 15:06 | PDOC.CMPRO ---
Date of service: 07/03/24 Time of Service: 15:06 Care Management Progress Note Progress Note Text Progress Note Text: Lisa was side lying in bed talking in her phone when CM met with her. Lisa appears upbeat today and is gearing up to go down to the OR to have her Gallbladder out this afternoon. No needs or concerns at this time. CM will continue to follow. Discharge Potential Discharge Needs: Surgical F/U Appt Anticipated Barriers to Discharge: Medical Status Patient/Family Education Needs: Review discharge instructions, discuss Ask Me Three Transportation: Private vehicle Plan: Lisa is going to the OR today for a Laparoscopic Cholecystectomy.. Anticipate, pt will discharge home via private vehicle with when medically cleared for discharge. No new services are anticipated at this time. CM will follow and support discharge planning considerations when known. SDOH(Care Management) Screening Will the Patient Participate in the Screening?: Declined to provide
[2024-07-03] MEDS: Indocyanine green 25 MG VIAL 5 MG IVP (15:07)
[2024-07-03] MEDS: Acetaminophen 500 MG TAB 1000 MG PO ×2 (15:07→20:40)
[2024-07-03] MEDS: Water,Injection,Sterile 10 ML VIAL IJ (15:08)
[2024-07-03] MEDS: Lactated Ringers 1,000 ML 30 ML IV (17:00)
[2024-07-03] MEDS: metroNIDAZOLE 500 MG/100 ML BAG 100 MG IVPB (17:38)
[2024-07-03] MEDS: Bupivacaine 0.25% Pres-Free W/EPI 30 ML VIAL (17:59)
--- NOTE | 2024-07-03 18:15 | GB_PTH ---
PATIENT: Lisa Pinto LOC: [id number]#:[id number] AGE/SX: 63/F ROOM: [id number] RE07/01/[address]: Scott Gilbert MD : 1960 BED: A DIS: 07/05/2024 SPEC #: [id number] RECD: 07/03/24 18:58 STATUS: SOUMaverick REQ #: [id number] NITHIN: 07/03/24 18:[address]: Scott Gilbert DEPT: Surgical Specimen RECD BY: Ira Mixon ENTERED: 07/03/24 19:04 SP TYPE: GB OTHR DR: Suzi Irving APRN Tissues: 1 - GALLBLADDER Procedures: GROSS AND MICRO LEVEL 3 Comments: [id number]
--- NOTE | 2024-07-03 18:33 | ROE_ITS ---
Date of service: 07/03/24 Time of Service: 18:33 Operative Note Operative Note DATE OF PROCEDURE: 07/03/24 PRE-OP DIAGNOSIS: Acute on chronic cholecystitis POST-OP DIAGNOSIS: same PROCEDURE: Laparoscopic cholecystectomy SURGEON: Teresa Harry FRONT DESK TEAM MEMBER: Braydon Wiggins ANESTHESIA TYPE: Local By Surgeon Refer to Anesthesia Record ESTIMATED BLOOD LOSS: 20 PATHOLOGY: other COMPLICATIONS: None Patient was transported to: PACU Patient's condition: stable Procedure Description: The patient agrees and is brought to the operative room suite and placed in supine position. Pt receives IV ICG preOp to aid w/ bile duct visualization.? Anesthesia was administered per the Department of Anesthesia. The patient did receive IV antibiotics. NG tube and Goncalves catheter are placed. The patient was prepped and draped in the usual sterile fashion using DuraPrep scrub solution. Pause for the cause was done. 20 mL of 1% buffered lidocaine was used for local anesthetization. A stab incision was made in the umbilicus and the Verres inserted. Drop test was positive and insufflation was begun. When 15 mm of pressure was noted on the monitor, the Veress was removed and #5 port inserted. The camera was inserted through the port and shows no damage to underlying structures. A 10 mm port was then placed in the epigastric position under direct visualization following creation of local field blocks as well as two 5 mm ports in the right upper quadrant. The camera was moved to one of the secondary ports so we could view the umbilical trocar site, and there is are no hernias or adhesions. The gallbladder is quite distended. There is no thickened wall or other signs of acute infection. Gallbladder is decompressed with a needle and roughly 50 cc of dark green bile was removed. Is sent for culture. Clips are placed over the puncture hole. The gallbladder fundus was grasped and retracted towards the right shoulder. Infundibulum was grasped and retracted laterally. The hepat-duodenal ligament is entered. The cystic duct and artery are dissected out and the most inferior portion of the gallbladder plate is removed from the liver and the critical view of safety was obtained after clearing away all fatty material. Endo Clips were placed across the duct and artery and these structures are divided. The remainder of the gallbladder was excised from the liver bed. The gallbladder was placed in a bag and brought out. Examination of the gallbladder shows indeed the cystic duct and artery to have been divided. The remainder of the abdomen was copiously irrigated with a liter of saline. All saline is removed. There is no bleeding or bile leakage from the liver bed or the clips sites. An EndoClose needle was used to close the 10 mm port site with an 0 Vicryl. All ports and instruments are removed. SPonge and needle counts are correct. Pneumoperitoneum is evacuated and the port sites are monitored to make sure there is no bleeding at the time of desufflation. ??Port sites are irrigated and the skin is closed with 4-0 Monocryl in a running subcuticular fashion. Skin glue sterile dressings are applied. The patient tolerated the procedure well without complications, transferred to the recovery room in stable condition. TERESA HARRY, DO
--- NOTE | 2024-07-03 19:08 | W.ANESPOSTOP ---
Postoperative Evaluation Date, Time and Location Date Performed: 07/03/24 Time Performed: 19:08 Patient Location: PACU Vital Signs Most Recent Imported Vital Signs: Most Recent Vital Signs Temp Pulse Resp BP Pulse Ox 36.6 C 64 23 133/76 96 07/03/24 19:00 07/03/24 19:00 07/03/24 19:00 07/03/24 19:00 07/03/24 19:00 Pain Score Most Recent Pain Score: Most Recent Pain Score Pain Level [Left Upper Abdomen 5 07/03/24 13:02 ] Pain Level 0 07/03/24 19:00 Assessment Mental Status: Arousable with meaningful communication Airway and Respiratory Function: Patent airway with normal (patient baseline) respiratory exam Cardiovascular Function: Hemodynamically Stable Hydration Status: Adequately Hydrated Nausea & Vomiting: No Nausea or Vomiting Pain: Pain is tolerable per patient Peripheral Nerve Block: Patient did not receive a nerve block
[2024-07-03] MEDS: cefTRIAXone 2 GM/50 ML BAG IVPB (22:32)
[2024-07-04] MEDS: Ketorolac 15 MG/ML VIAL IVP ×4 (00:11→23:39)
[2024-07-04] MEDS: Acetaminophen 500 MG TAB 1000 MG PO ×4 (02:01→18:22)
[2024-07-04] MEDS: metroNIDAZOLE 500 MG/100 ML BAG 100 MG IVPB ×3 (02:01→18:23)
[2024-07-04 02:21] VITALS: BP 146/76; PULSE 61; RESP 18; TEMP 36.6; O2SAT 93
[2024-07-04] MEDS: Lactated Ringers 1,000 ML 75 ML IV (05:41)
[2024-07-04 06:40] LABS: Abs Immature Grans 0.04 10^3/uL (0.0-0.06); Absolute Lymphocyte Count 0.48 10^3/uL (1.2-3.4); Absolute Monocyte Count 0.83 10^3/uL (0.1-0.8); Absolute Neutrophil Count 13.18 10^3/uL (1.2-6.7); Basophils % 0.1 %; HCT 41.4 % (36.0-46.0); HGB 14.1 g/dL (11.2-15.7); Immature Grans % 0.3 %; Lymphocytes % 3.3 %; MCH 31.9 pg (27.0-33.0); MCHC 34.1 % (32.0-36.0); MCV 94 fL (80-95); MPV 11.3 fL (8.0-11.0); Monocytes % 5.7 %; Neutrophils % 90.6 %; Platelet Count 217 10^3/uL (130-400); RBC 4.42 10^6/uL (3.93-5.22); RDW 12.2 % (11.7-14.6); RDW-SD 42.2 fL; WBC 14.55 10^3/uL (4.4-10.8)
[2024-07-04 06:52] LABS: Absolute Basophil Count 0.01 10^3/uL (0.0-0.2)
[2024-07-04 07:11] VITALS: BP 159/88; PULSE 67; RESP 17; TEMP 36.3; O2SAT 92
[2024-07-04] MEDS: Normal Saline Flush 10 ML SYR IVP ×3 (08:11→22:19)
[2024-07-04] MEDS: Omeprazole 20 MG CAPCR PO ×2 (08:12→20:42)
[2024-07-04] MEDS: Lisinopril 10 MG TAB 30 MG PO (08:12)
[2024-07-04] MEDS: Nicotine 14 MG/24 HR PATCH TD (10:35)
--- NOTE | 2024-07-04 12:20 | PGE_ITS ---
Date of Service Date of service: 07/04/24 Time of Service: 12:20 Assessment and Plan Assessment and plan (1) HTN (hypertension), benign: Status: Acute (2) Pre-diabetes: Status: Acute (3) Gastric peptic ulcer: Status: Acute (4) Diverticulosis: Status: Acute (5) Hemorrhoids: Status: Acute (6) Tobacco abuse: (7) Cholelithiasis with acute on chronic cholecystitis: Status: Acute (8) S/P laparoscopic cholecystectomy: Assessment and plan: -pulm toilet up walking low fat diet comprehensive pain management needs to have BM pulm toilet ember patches IV abx d/c in am Subjective Subjective Interval history since last seen: Pt is doing well. no headaches. No CP or SOB. no productive cough. no dysuria. no leg pain or swelling. Exam Narrative Exam Narrative: PHYSICAL EXAM GENERAL APPEARANCE: Alert, healthy appearance, oriented, x 3,? in no acute distress HYDRATION: Well hydrated HEAD, EYES, EARS, NECK, THROAT: Head is normocephalic, pupils equal, round, reactive to light and accommodation, ocular movement intact, sclera clear and no jaundice. edentuaous. No sore throat.? No jaw pain. No thrush LUNGS: normal respiration/normal chest excursion. ?Clear to auscultation bilaterally. ?No wheeze. ?HEART: Regular rate and rhythm. no murmurs EXTREMITY: No edema or cyanosis.? no leg pain, redness, swelling.? ABDOMEN: incisions are c/d/i. +BS Objective Last Vital Signs Temp 36.3 C L 07/04/24 07:11 Pulse 67 07/04/24 07:11 Resp 17 07/04/24 07:11 BP 159/88 H 07/04/24 07:11 Pulse Ox 92 07/04/24 07:11 Laboratory Results - last 24 hr 07/01/24 07/02/24 07/04/24 18:45 06:30 06:02 WBC 14.55 H RBC 4.42 Hgb 14.1 Hct 41.4 MCV 94 MCH 31.9 MCHC 34.1 RDW 12.2 Plt Count 217 MPV 11.3 H Immature Gran % 0.3 Neutrophils % 90.6 Lymphocytes % 3.3 Monocytes % 5.7 Eosinophils % 0.0 Basophils % 0.1 Nucleated RBC % 0.0 Absolute Neutrophils 13.18 H Absolute Lymphocytes 0.48 L Absolute Monocytes 0.83 H Absolute Eosinophils 0.00 Absolute Basophils 0.01 BEATA Titer Not Applicable BEATA Titer 2 Not Applicable BEATA Titer 3 Not Applicable BEATA Interpretation Negative Hepatitis A IgM Ab Negative Hep Bs Antigen Negative Hep B Core Total Ab Negative Hepatitis C Antibody Negative Time Spent with Patient Time Spent with Patient: 25-34 minutes Time was spent: preparing to see the patient(eg.review tests), [facility], ordering medications,tests, procedures, referring, communicating with other health assisted living care manager, indepentently interpreting results, counseling the patient, care coordination and other
[2024-07-04] MEDS: Polyethylene Glycol 3350 17 GM PACKET PO (12:43)
--- NOTE | 2024-07-04 14:51 | W.PM.PROGNOT ---
Date of Service Date of service: 07/03/24 Time of Service: 19:30 Assessment and Plan Assessment and plan (1) S/P laparoscopic cholecystectomy: Assessment and plan: The patient is doing well post-op. Their pain is well controlled. They are having no nausea or vomiting. The pt is not having any chest pain or SOB, productive cough; no calf pain or swelling. The pt is making good urine. The pt pain is adequately controlled. The case was discussed with nursing and patient?s progress reviewed. All of the pt's home medications were addressed and adjusted accordingly for their oral intact status. HEENT: no jaundice. no eye pain/drainage/redness/swelling. Mild sore throat Cardio- NSR no chest pain, BP stable. Pulm: no sob or productive cough. no hemoptysis Incision- clean/dry. Dressing intact no excessive bleeding or drainage gram stain of bile shows gram + cocycc and gram- Rods I discussed with the patient and/or there family about the findings in surgery and the pt's progress. We reviewed expectations for progress in the hospital; what the pt could expect for recovery time and length of stay. We discussed the importance of walking and pulmonary toilet to avoid blood clots and pneumonia. Continue current plans for pulmonary toilet, GI and DVT prophylaxis. We shall continue the current plan for pain management as it is at an appropriate level, and working well for the pt. Appropriate measures will be taken for constipation prevention, and this was also reviewed with the pt. The wound care plan was reviewed with nursing as well. see orders Objective Last Vital Signs Temp 36.3 C L 07/04/24 07:11 Pulse 67 07/04/24 07:11 Resp 17 07/04/24 07:11 BP 159/88 H 07/04/24 07:11 Pulse Ox 92 07/04/24 07:11 Laboratory Results - last 24 hr 07/04/24 06:02 WBC 14.55 H RBC 4.42 Hgb 14.1 Hct 41.4 MCV 94 MCH 31.9 MCHC 34.1 RDW 12.2 Plt Count 217 MPV 11.3 H Immature Gran % 0.3 Neutrophils % 90.6 Lymphocytes % 3.3 Monocytes % 5.7 Eosinophils % 0.0 Basophils % 0.1 Nucleated RBC % 0.0 Absolute Neutrophils 13.18 H Absolute Lymphocytes 0.48 L Absolute Monocytes 0.83 H Absolute Eosinophils 0.00 Absolute Basophils 0.01 Time Spent with Patient Time Spent with Patient: 25-34 minutes Time was spent: preparing to see the patient(eg.review tests), obtaining and/or reviewing separately otained hiistory, ordering medications,tests, procedures, referring, communicating with other health small animal caretaker, indepentently interpreting results, counseling the patient, care coordination and other
--- NOTE | 2024-07-04 15:09 | DSE_ITS ---
Date of service: 07/05/24 Time of Service: 07:27 DS: Diagnosis Discharge Diagnosis (1) HTN (hypertension), benign: Status: Acute (2) Pre-diabetes: Status: Acute (3) Gastric peptic ulcer: Status: Acute (4) Diverticulosis: Status: Acute (5) Hemorrhoids: Status: Acute (6) Tobacco abuse: (7) Cholelithiasis with acute on chronic cholecystitis: (8) S/P laparoscopic cholecystectomy: Discharge Plan Disposition Patient Disposition: Home Condition: Improving Discharge Details Reason For Visit: Choledocholithiasis Admit Date/Time: 07/01/24 13:33 Admit Provider: Scott Gilbert Attending Provider: Scott Gilbert Primary Care Provider: Suzi Irving [facility] Hospital Course: Patient is a 63-year-old female who was admitted through the ER on 03/31. Her initial presentation was with extremely high LFTs and the picture was confusing and seem to be more of a acute hepatitis problem rather than a cholestasis problem. Her ultrasound was negative. She did have a HIDA scan which was compatible with acute acalculous cholecystitis. She went to the OR on 07/02 and underwent an uneventful lap kamla. She did have sludge and gravel. Bile aspira tion was done that did grow out E. coli so she was kept on antibiotics?Rocephin and Flagyl. On 06/28 she did have a 15,000 white count and was kept for additional 24 hours on IV antibiotics. Today on 07/05 her white count is trending down. She is up walking. She is tolerating a regular diet. She has no fever or chills and her blood pressure is stable. She has no DVT she has no signs of pneumonia no UTIs no breakdown. Patient was given instructions and wound care, activity, diet, pulmonary toilet and warning signs. She was given a prescription for Augmentin, tramadol and a nicotine patch. She has not [place] encouraged to use that at home she will be kept on a low-fat diet. She will be kept on all her same medical home medications. Patient verbalized understanding of instructions. She is discharged into the care of her in stable and satisfactory condition. Home Meds and New Rx's Prescriptions: New nicotine 14 mg/24 hr Patch 24 Hour 14 mg transdermal DAILY PRN PRNQty: 28 0RF tramadol 50 mg Tablet 50 mg PO Q4H PRN PRNQty: 14 0RF amoxicillin-pot clavulanate 875-125 mg tablet 1 tab PO BID 5 Days Qty: 10 0RF Continued albuterol sulfate [ProAir HFA] 90 mcg/actuation HFA aerosol inhaler 2 puff inhalation 6XD PRN (Reason: shortness of breath or wheezing) Qty: 18 12RF albuterol sulfate 2.5 mg /3 mL (0.083 %) solution for nebulization 2.5 mg IH QID PRN (Reason: shortness of breath or wheezing) Qty: 180 3RF lisinopril 30 mg tablet 30 mg PO DAILY Qty: 90 3RF atorvastatin 40 mg tablet 40 mg PO QPM Qty: 90 3RF famotidine 20 mg tablet 20 mg PO DAILY Qty: 90 3RF omeprazole 40 mg capsule,delayed release(DR/EC) 40 mg PO DAILY Qty: 90 3RF Trelegy Ellipta 100-62.5-25 mcg blister with device 1 inh inhalation DAILY Qty: 60 5RF fluocinonide 0.05 % solution 1 applic topical HS PRN Patient Comments: 06/24/23 Derm visit Discharge Instructions Additional Instructions: Care after Gallbladder Surgery -Pain control: ?For the first 72 hours after surgery, take you pain meds continuously and not just when you have pain.?? Alternate Tylenol 1000mg by mouth every 8 hours ??Use the tramadol for breakthrough pain- pain that is greater than a 7. ?- Use ICE! Ice really helps to keep the swelling down, and swelling causes pain. ??Twenty minutes on, and then off, continuously for the first 72hours.? After the first 72hrs, you can just use the Tylenol, ibuprofen, and ice, when you have pain.?? If you are taking narcotic pain medication, follow the instructions on the label and do not drive. Pain medications can make you very constipated. Make sure you are moving your bowels daily. If not, take Miralax, ? Use an ice bag for the first 72 hours. This helps to decrease swelling, which causes pain. It is normal to be more sore/painful and swollen towards the end of the day and first thing in the morning. ? Use Miralax ?to prevent constipation (this is a particular side effect of pain medication and anesthesia). Do not allow yourself to become constipated. ? Avoid fatty or greasy foods; introduce these slowly, with care, after about 1 month. High-fat foods include: ? Foods that are fried, like [place] fries and potato chips ? High-fat meats, such as morgan, bologna, sausage, ground beef, and ribs, pork products ? High-fat dairy products, such as cheese, ice cream, cream, whole milk, and sour cream ? Pizza ? Foods made with lard or butter ? Creamy soups or sauces ? Meat gravies ? Chocolate ? Oils, such as palm and coconut oil ? Skin of chicken or turkey ? Nuts and nut butters ? Avocadoes ? Start out eating very small, bland amounts of food. Do not take pain pills on an empty stomach. - You will notice purple discoloration around the incisions.? This is the ?skin glue?.? This will wear off on its own.? It is OK to shower after 24hrs.? You do not need to cover the incisions. -You should walk frequently, gradually, increasing the distance. You may climb stairs, just go slowly. ? Do not go swimming or sit in a hot tub for two weeks. ? There are no stitches to remove. ? Do not drive your car x72hrs and then only if you have no pain and can move freely. Do not drive if you are taking pain narcotic pain medications. ? You may resume sexual activity whenever pain and soreness subside, usually in 2 weeks. ? Do no lift anything over 5 lbs. for two weeks. ? You may return to work in one week, or when you feel able, provided you do not have to do any heavy lifting or prolonged standing. ? You should return to Dr. Yadav?s office for a post-op appointment about two weeks after surgery. Please call the Surgical Clinic at: [phone] to schedule an appointment. My Medications for pain and nausea are: Tylenol ?and ultram- for severe pain When to Call the Office: ? If the incision becomes red or swollen, or there is more than a little drainage from it. ? If you develop a temperature higher than 100.5 F. ? If your eyes turn yellow ? Vomiting and can?t keep fluids down Activity:: see above Equipment/Supplies:: No Equipment Needed Diet:: Other Discharge Orders Discharge Orders: Discharge Order (Routine); Ordered 07/05/24 Ordered By: Teresa Yadav DS: Summary Time Spent with Patient providing and/or coordinating discharge services: Less than 30 minutes Status at Discharge Functional status at discharge: independent ambulation Overall status at discharge: patient is progressing back to baseline Mental Status: mental status grossly normal Speech and Movement: speech and movement normal Mood: congruent mood Affect: normal affect Quality:SDOH Health Related Social Needs: No Data to Display Exam Psych Mental Status: mental status grossly normal Speech and Movement: speech and movement normal Mood: congruent mood Affect: normal affect DS: Data Vitals/I&O Vitals and I&O: Vital Signs Temperature 36.3 C L 07/04/24 07:11 Temperature Source Temporal Artery Scan 07/04/24 07:11 Pulse 67 07/04/24 07:11 Pulse Rhythm Regular 07/01/24 15:11 Respiratory Rate 17 07/04/24 07:11 Respiratory Effort Normal, Non-Labored, Short of Breath 07/01/24 15:11 Respiratory Depth Normal 07/01/24 15:11 Respiratory Pattern Normal 07/01/24 15:11 Blood Pressure 159/88 H 07/04/24 07:11 Blood Pressure Position Sitting 07/01/24 11:01 Pulse Oximetry 92 07/04/24 07:11 Respiratory End-tidal CO2 30 07/03/24 19:00 Oxygen Delivery Method Room Air 07/04/24 07:11 Oxygen Flow Rate 0 07/04/24 07:11 Pain Level 2 07/04/24 08:11 Comment RN notified of bp 07/04/24 07:11 Intake & Output 07/03/24 07/04/24 07/04/24 23:59 11:59 23:59 Intake Total 1760 / 1760 943.75 / 943.75 Output Total 400 / 1000 1200 / 1200 Balance 1360 / 760 -256.25 / -256.25 Weight 71.214 kg Intake: IV 1510 / 1510 693.75 / 693.75 Oral 250 / 250 250 / 250 Output: Urine 400 / 1000 1200 / 1200 Other: Urine Color Yellow Yellow Urine Appearance Clear Clear Urine Odor Normal Emesis Description None Voiding Methods Bedside Commode Toilet Data Completed and Pending Labs on day of discharge: Labs from last 24 hours 07/04/24 06:02 WBC 14.55 H RBC 4.42 Hgb 14.1 Hct 41.4 MCV 94 MCH 31.9 MCHC 34.1 RDW 12.2 Plt Count 217 MPV 11.3 H Immature Gran % 0.3 Neutrophils % 90.6 Lymphocytes % 3.3 Monocytes % 5.7 Eosinophils % 0.0 Basophils % 0.1 Nucleated RBC % 0.0 Absolute Neutrophils 13.18 H Absolute Lymphocytes 0.48 L Absolute Monocytes 0.83 H Absolute Eosinophils 0.00 Absolute Basophils 0.01 07/03/24 17:41 Bile Body Fluid Culture - Pending Preliminary micro results at discharge 07/03/24 17:41 Body Fluid Culture - Pending Bile PFSH All Active Problems (Updated 07/05/24 @ 07:07 by Teresa Yadav DO) COPD (chronic obstructive pulmonary disease) (Chronic) Hepatitis (Acute) Lung nodule seen on imaging study (Acute) Acute exacerbation of chronic obstructive pulmonary disease (Acute) Corns and callosities (Acute) Porokeratosis (Acute) Plantar verruca (Acute) Dermatitis (Acute ~12/2022) 01/23/23 [facility] Derm, Punch BX done 03/04/23 F/U Derm Pityriasis lichenoides (Acute) Lymphadenopathy (Acute) Pre-diabetes (Acute) Tinnitus, right (Acute) Dysfunction of right eustachian tube (Acute) SOB (shortness of breath) (Acute) Wheeze (Acute) Cough (Acute) Vertigo (Acute) Osteoarthritis of left hip (Acute) Left hip pain (Acute) Nausea (Acute) Lightheaded (Acute) Headache (Acute) Dizziness (Acute) Gastric peptic ulcer (Acute) Pt says she cannot tolerate any NSAIDs Asthmatic bronchitis (Acute) Cough (Acute) Sinusitis (Acute) Hemorrhoids (Acute) Diverticulosis (Acute) Trochanteric bursitis, right hip (Acute 03/31/18) Numbness of right anterior thigh (Acute 03/19/16) Chronic hip pain after total replacement of right hip joint (Acute 12/18/17) Adhesive capsulitis of left shoulder (Acute 04/23/16) Dysphagia (Acute) Nodule of right lung (Acute) Right apex 3.5 mm. f/u CT due October 2019 HTN (hypertension), benign (Acute) Tobacco use disorder (Acute) Osteoarthritis of right hip (Acute) Medical History (Updated 07/05/24 @ 07:07 by Teresa Yadav DO) Cholelithiasis with acute on chronic cholecystitis Tobacco abuse GERD (gastroesophageal reflux disease) Ulcer Multiple environmental allergies Hypertension Hyperlipidemia Restrictive lung disease Gastritis Arthritis Shoulder pain Surgical History (Updated 07/04/24 @ 14:52 by Teresa Yadav DO) S/P laparoscopic cholecystectomy History of tonsillectomy Hx of shoulder surgery S/P colonoscopy History of esophagogastroduodenoscopy (EGD) (~07/13/19) History of colonoscopy (~07/13/19) Tubular adenoma History of neck surgery History of carpal tunnel release History of hip replacement EGD - MAC (08/27/17) Family History Father Cancer of bone Leukemia Mother COPD (chronic obstructive pulmonary disease) Diabetes Hypertension Brother Lung cancer Stage 3 A Social History Smoking/Tobacco Use Status: Current every day Tobacco Type: cigarettes Smoking packs per day: 0.5 Smoking cigarettes per day: 10.0 Quit status: considering quitting Smoking risk assessment performed?: Yes Alcohol Intake: current Alcohol Intake frequency: holidays/special occasions only Alcohol type: beer Details: OCCASIONALLY Drug use: Never Substance use type: does not use Counseling given: No Adopted: No Household members: spouse Housing: house Number of Children: 3 number of grandchildren: 2 Communication Needs: Corrective Lenses Do you need help understanding health information?: Never current occupation: Disabled Pets and animals: Yes Pets and animals: cat(s) and bird(s) Sexually active: No Do you think of yourself as: straight/heterosexual Current gender identity: female What is your relationship status?: How often do you talk on the phone with friends or family?: three or more times per week How often do you get together with friends or relatives?: once per week How often do you attend adventism or samaritan services?: decline to answer Panel score (0-1 are the most socially isolated patients): 2 What type of physical activity do you participate in: none Special stephanie needs: No Seatbelt use: always Drive intox or ride w/intox 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 Working smoke detector in home: Yes Fire extinguisher in home: Yes Carbon monox detector in home: Yes Firearms in home: No Do you feel safe at home: Yes Do you feel safe in your relationship?: Yes Additional Social history: unable to talk privately Time Spent with Patient Time Spent with Patient: <45 minutes Time was spent: preparing to see the patient(eg.review tests), obtaining and/or reviewing separately otained hiistory, ordering medications,tests, procedures, referring, communicating with other health wound care nurse, indepentently interpreting results, counseling the patient, care coordination and other
[2024-07-04 15:32] VITALS: BP 146/79; PULSE 76; RESP 16; TEMP 36.8; O2SAT 96
[2024-07-04 16:09] LABS: Smooth Muscle Ab Screen Negative (Negative)
[2024-07-04] MEDS: Lactobacillus Acidophilus CAP 1 CAP PO (18:22)
[2024-07-04] MEDS: traMADol 50 MG TAB PO (20:42)
[2024-07-04] MEDS: cefTRIAXone 2 GM/50 ML BAG IVPB (22:18)
[2024-07-04 23:03] VITALS: BP 129/82; PULSE 72; RESP 16; TEMP 36.5; O2SAT 94
[2024-07-05] MEDS: metroNIDAZOLE 500 MG/100 ML BAG 100 MG IVPB (01:53)
[2024-07-05] MEDS: Acetaminophen 500 MG TAB 1000 MG PO ×2 (01:53→06:24)
[2024-07-05] MEDS: Ketorolac 15 MG/ML VIAL IVP (06:24)
[2024-07-05 06:25] LABS: Abs Immature Grans 0.08 10^3/uL (0.0-0.06); Absolute Eosinophil Count 0.07 10^3/uL (0.0-0.7); Absolute Monocyte Count 0.96 10^3/uL (0.1-0.8); Basophils % 0.1 %; Eosinophils % 0.5 %; Immature Grans % 0.6 %; Lymphocytes % 12.2 %; Monocytes % 6.9 %; Neutrophils % 79.7 %; WBC 13.96 10^3/uL (4.4-10.8)
[2024-07-05 06:26] LABS: Absolute Basophil Count 0.01 10^3/uL (0.0-0.2); Absolute Neutrophil Count 11.13 10^3/uL (1.2-6.7)
[2024-07-05 06:39] LABS: ALT 177 U/L (14-59); AST 32 U/L (15-37); Albumin 2.7 g/dL (3.4-5.0); Alkaline Phosphatase 139 U/L (46-116); Bilirubin, Direct 0.3 mg/dL (0.0-0.2); Bilirubin, Total 0.55 mg/dL (0.2-1.0)
--- NOTE | 2024-07-05 07:05 | PGE_ITS ---
Date of Service Date of service: 07/05/24 Time of Service: 07:05 Assessment and Plan Assessment and plan (1) HTN (hypertension), benign: Status: Acute (2) Pre-diabetes: Status: Acute (3) Dysphagia: Status: Acute (4) Gastric peptic ulcer: Status: Acute (5) Cholelithiasis with acute on chronic cholecystitis: Assessment and plan: Patient is doing well from her lap kamla She has moved her bowels. She is tolerating a low-fat diet She is up walking around Her pain is well-controlled on oral Her breathing is her baseline. I discussed with patient wound care, activity, diet , physical limitations and warning signs. Will need to call on Saturday and make a clinic appointment for follow-up. She can have Tylenol/Ultram and will be discharged home with antibiotics. See discharge instructions. (6) Nodule of right lung: Status: Acute (7) Tobacco use disorder: Status: Acute (8) COPD (chronic obstructive pulmonary disease): Status: Chronic (9) S/P laparoscopic cholecystectomy: Subjective Subjective Interval history since last seen: Pt is doing well. no headaches. No CP or SOB. She has a chronic smokers cough- nothing productive. no dysuria. no leg pain or swelling. tolerating po's up walking + BM Exam Narrative Exam Narrative: PHYSICAL EXAM GENERAL APPEARANCE: Alert, healthy appearance, oriented, x 3,? in no acute distress HYDRATION: Well hydrated HEAD, EYES, EARS, NECK, THROAT: Head is normocephalic, pupils equal, round, reactive to light and accommodation, ocular movement intact, sclera clear and no jaundice. ?Dentition edentualous No thrush LUNGS: normal respiration/normal chest excursion. ?Clear to auscultation bilaterally. ?No wheeze. ?HEART: Regular rate and rhythm. no murmurs EXTREMITY: No edema or cyanosis.? no leg pain, redness, swelling.? ABDOMEN: soft and non-tender to palpation.? Normal bowel sounds.? incisions are c/d/i Objective Last Vital Signs Temp 36.5 C 07/04/24 23:03 Pulse 72 07/04/24 23:03 Resp 16 07/04/24 23:03 BP 129/82 07/04/24 23:03 Pulse Ox 94 07/04/24 23:03 Laboratory Results - last 24 hr 07/05/24 06:13 WBC 13.96 H Immature Gran % 0.6 Neutrophils % 79.7 Lymphocytes % 12.2 Monocytes % 6.9 Eosinophils % 0.5 Basophils % 0.1 Absolute Neutrophils 11.13 H Absolute Lymphocytes 1.70 Absolute Monocytes 0.96 H Absolute Eosinophils 0.07 Absolute Basophils 0.01 Total Bilirubin 0.55 Conjugated Bilirubin 0.3 H AST 32 ALT 177 H Alkaline Phosphatase 139 H Total Protein 6.0 L Albumin 2.7 L Time Spent with Patient Time Spent with Patient: 25-34 minutes Time was spent: preparing to see the patient(eg.review tests), obtaining and/or reviewing separately otained hiistory, ordering medications,tests, procedures, referring, communicating with other health senior caregiver, indepentently interpreting results, counseling the patient, care coordination and other
[2024-07-05 07:39] VITALS: BP 133/87; PULSE 64; RESP 17; TEMP 36.8; O2SAT 93
[2024-07-05] MEDS: Lisinopril 10 MG TAB 30 MG PO (08:48)
[2024-07-05] MEDS: Omeprazole 20 MG CAPCR PO (08:48)
--- NOTE | 2024-07-05 09:27 | PDOC.CMDIS ---
Date of service: 07/05/24 Time of Service: 09:27 LACE Index Scoring Tool Questions: Length of Stay (in days): 4 - 6 Was the patient admitted via the E.D.?: Yes E.D. Visits: 1 Answers: Total Score: 8 Risk of Readmission: Low Risk Care Management Discharge Plan Reason for Hospitalization: acute on chronic cholecystitis s/p lap choly on 07/04/24. Discharge Plan: Lisa was discharged with new orders for 5 days of antibiotics. She will follow up with surgeon in 2 weeks and continue per plan of care. She will transport in private vehicle with her , Laz. Patient/Family Education Needs: Review of discharge instructions, activity limitations and follow up plan. Discuss ask me 3. SDOH Health Related Social Needs: No Data to Display
[2024-07-05 10:21] LABS: Ceruloplasmin 30.1 mg/dL
== END 2024-07-05 09:22 | disposition home or self-care (01) ==
LOC: ER 11:12 → MS 14:51
PROVIDERS: Surgery; Admitting Provider Surgery; Emergency Provider Physician Assistant; PCP Nurse Practitioner; Visit Provider Surgery
PROC: 0FT44ZZ Resection of Gallbladder, Percutaneous Endoscopic Approach (ICD-10-PCS; CPT 47562; principal; 2024-07-03 14:00)
DX: K80.12 Calculus of gallbladder with acute and chronic cholecystitis without obstruction (principal); R91.1 Solitary pulmonary nodule; L41.0 Pityriasis lichenoides et varioliformis acuta; Q82.8 Other specified congenital malformations of skin; R73.03 Prediabetes; I10 Essential (primary) hypertension; F17.210 Nicotine dependence, cigarettes, uncomplicated; K21.9 Gastro-esophageal reflux disease without esophagitis; E78.5 Hyperlipidemia, unspecified; K64.9 Unspecified hemorrhoids; K25.9 Gastric ulcer, unspecified as acute or chronic, without hemorrhage or perforation; K57.30 Diverticulosis of large intestine without perforation or abscess without bleeding; J44.9 Chronic obstructive pulmonary disease, unspecified
CPT/HCPCS: 47562; 36415; 78227; 80053; 80076; 82390; 83690; 85027; 85048; 86704; 86709; 86803; 87077; 87340; 87637; 93005; 96365; 96366; 96367; 96372; 96375; 96376; 99223; 99233; 99285; J1650; J2805; 71046; 74177; 74181; 76705; 80329; 82728; 82977; 83615; 83915; 84484; 85007; 85025; 85610; 86038; 86140; 86255; 87070; 87186; 87205; 88304; 93010; G0378; J0690; J0696; J1100; J1170; J1836; J1885; J2060; J2250; J2270; J2405; J2704; J3010; J3475; J3490

== ENCOUNTER → 2024-07-15 10:59 | Outpatient (BNVA) | payer OTHER, SELFPAY | PROVIDERS: PCP Nurse Practitioner; Referring Provider Nurse Practitioner; Visit Provider Podiatrist | DX: L60.0 Ingrowing nail (principal); B07.0 Plantar wart; Q82.8 Other specified congenital malformations of skin; L84 Corns and callosities | CPT/HCPCS: 17110 ==

== ENCOUNTER → 2024-07-15 11:34 | Outpatient (BNVA) | payer OTHER, SELFPAY | PROVIDERS: PCP Nurse Practitioner; Referring Provider Nurse Practitioner; Visit Provider Surgery | DX: Z48.815 Encounter for surgical aftercare following surgery on the digestive system (principal); Z90.49 Acquired absence of other specified parts of digestive tract ==

== ENCOUNTER → 2024-09-16 12:52 | Outpatient (BNVA) | payer OTHER, SELFPAY | PROVIDERS: PCP Nurse Practitioner; Referring Provider Nurse Practitioner; Visit Provider Podiatrist | DX: L60.0 Ingrowing nail (principal); M79.672 Pain in left foot | CPT/HCPCS: 11750 ==

== ENCOUNTER → 2024-10-05 10:39 | Outpatient (BNVA) | payer OTHER, SELFPAY | PROVIDERS: PCP Nurse Practitioner; Referring Provider Nurse Practitioner; Visit Provider Podiatrist | DX: L60.0 Ingrowing nail (principal); M79.672 Pain in left foot; L03.032 Cellulitis of left toe | CPT/HCPCS: 99213 ==

== ENCOUNTER → 2024-10-13 13:15 | Outpatient (BNVA) | payer OTHER, SELFPAY | PROVIDERS: PCP Nurse Practitioner; Referring Provider Nurse Practitioner; Visit Provider Podiatrist | DX: L60.0 Ingrowing nail (principal); M79.672 Pain in left foot; L03.032 Cellulitis of left toe | CPT/HCPCS: 11730 ==

== ENCOUNTER → 2024-11-18 08:47 | Outpatient (BNVA) | payer MEDICARE, MEDICAID, SELFPAY | PROVIDERS: PCP Nurse Practitioner; Referring Provider Nurse Practitioner; Visit Provider Podiatrist | DX: L60.0 Ingrowing nail (principal); M79.672 Pain in left foot; L03.032 Cellulitis of left toe | CPT/HCPCS: 99213 ==

== ENCOUNTER 2024-12-15 14:25 | Outpatient (REF) | payer MEDICARE, MEDICAID, SELFPAY | END 2024-12-15 14:26 | disposition home or self-care (01) | LOC: NCHCN 14:25 | PROVIDERS: PCP Nurse Practitioner; Visit Provider Physician Assistant | DX: N39.0 Urinary tract infection, site not specified (principal); B96.29 Other Escherichia coli [E. coli] as the cause of diseases classified elsewhere | CPT/HCPCS: 87077; 87086; 87186 ==

== ENCOUNTER 2025-02-24 21:56 | Outpatient (REF) | payer MEDICARE, MEDICAID, SELFPAY | END 2025-02-24 21:57 | disposition home or self-care (01) | LOC: LBN 21:56 | PROVIDERS: PCP Nurse Practitioner; Visit Provider Nurse Practitioner Family | DX: J02.9 Acute pharyngitis, unspecified (principal) | CPT/HCPCS: 87070 ==

== ENCOUNTER 2025-05-23 09:10 | Emergency (ER) | payer MEDICARE, MEDICAID, SELFPAY ==
[2025-05-23 09:22] VITALS: BP 190/92; PULSE 73; RESP 16; TEMP 36.6; O2SAT 97
--- NOTE | 2025-05-23 09:34 | DI.CT_ITS ---
Exam(s) CT RENAL COLIC WO EXAM: CT RENAL COLIC WO CLINICAL HISTORY: Left flank pain, vomiting. TECHNIQUE: Imaging Protocol: Axial computed tomography images with coronal and sagittal reformatted images were created and reviewed. Oral: / no COMPARISON: CT CT ABDOMEN PELVIS W from 07/01/2024 FINDINGS: Lung Bases: No acute findings. Liver: Mildly enlarged. Mild hepatic steatosis. No suspicious mass. Gallbladder and biliary tract: Cholecystectomy. No biliary dilation. Pancreas: Normal density. No abnormal calcifications or inflammatory process. Spleen: Normal. Kidneys: Normal size, contour and axis. Left renal cyst. 4 millimeter stone upper pole left kidney. This has increased in size from the previous exam. There is now dilatation of the left upper pole patito. Mild perirenal stranding. No ureteral calculi. No suspicious masses seen. Retroaortic left renal vein. Adrenal glands: No masses seen. Lymph nodes: Within normal limits. Vasculature: Abdominal aorta non-dilated. [id number] atherosclerotic changes. Soft tissues: Unremarkable. Bladder: Nearly empty. No wall thickening. No mass or calculi. Bowel: No obstruction or bowel wall thickening. Diverticulosis of the descending and sigmoid. No evidence of diverticulitis. Appendix normal. Normal quantity of stool. Peritoneal cavity: No ascites. No focal collection. No mesenteric inflammatory response. Reproductive organs: Unremarkable. Bones: Right hip prosthesis. Degenerative changes of the left hip and SI joints. Degenerative changes in the lumbar spine. IMPRESSION: Dilatation of the left upper pole calyx secondary to a 4 millimeter stone. The preliminary [facility] report was reviewed. RADIATION DOSE DELIVERED: Total DLP Total DLP DATA REPOSITORY: All CT scans at this facility are submitted to the National Radiology Data Registry (NRDR) Dose Index Registry (DIR) with the [employer] (ACR). RADIATION OPTIMIZATION: All CT scans at this facility use at least one of these dose optimization techniques: automated exposure control; mA and/or kV adjustment per patient size (includes targeted exams where dose is matched to clinical indication); or iterative reconstruction.
--- NOTE | 2025-05-23 09:36 | W.ED.GENAD ---
Discharge Plan Disposition Patient Disposition: Home Condition: Stable Discharge Details Clinical Impression: Calculus of left kidney Primary Care Provider: Suzi Irving ED Provider: Yelena Ricks Home Meds and New Rx's Prescriptions: New tamsulosin 0.4 mg capsule 0.4 mg PO QHS 7 Days Qty: 7 0RF Rx Instructions: Please take 1 capsule by mouth at bedtime for the next 7 days. Stop if dizziness occurs. ibuprofen 800 mg tablet 800 mg PO TID MDD 3200mg PRN (Reason: pain) Qty: 20 0RF Rx Instructions: Take 1 tablet by mouth 3 times daily with food as needed Continued phenazopyridine [Pyridium] 200 mg tablet 200 mg PO TID PRN (Reason: pain) Qty: 6 0RF albuterol sulfate [ProAir HFA] 90 mcg/actuation HFA aerosol inhaler 2 puff inhalation 6XD PRN (Reason: shortness of breath or wheezing) Qty: 18 12RF albuterol sulfate 2.5 mg /3 mL (0.083 %) solution for nebulization 2.5 mg IH QID PRN (Reason: shortness of breath or wheezing) Qty: 180 3RF lisinopril 30 mg tablet 30 mg PO DAILY Qty: 90 3RF atorvastatin 40 mg tablet 40 mg PO QPM Qty: 90 3RF famotidine 20 mg tablet 20 mg PO DAILY Qty: 90 3RF omeprazole 40 mg capsule,delayed release(DR/EC) 40 mg PO DAILY Qty: 90 3RF Trelegy Ellipta 100-62.5-25 mcg blister with device 1 inh inhalation DAILY Qty: 60 5RF fluocinonide 0.05 % solution 1 applic topical HS PRN Patient Comments: 06/24/23 Derm visit Discharge Instructions Instructions: Kidney Stone, Adult ED, Flank Pain ED Additional Instructions: At this time it does show a kidney stone which is approximately 4 mm in the upper part of your kidney. There is also some question of a early urinary tract infection. You are given IV antibiotics that will hopefully cover this today. If you continue to have vomiting, fever greater than 100.8, body aches chills or worsening pain not relieved by ibuprofen please return to the emergency department or call the urology office. You are placed on the care management list to assist you in getting a follow-up in the urology office within the next 7 to 10 days. If you do not hear from them in the next few days you may call to make an appointment. Please take the tamsulosin or Flomax once at bedtime and ibuprofen as prescribed. Thank you for allowing us to care for you today. Referrals: Mic Yan MD [ [facility] STAFF PHYSICIAN, Urology] - 1 week Referral Note: ER follow up 4mm stone Clinical Impression: Calculus of left kidney Discharge Data Discharge Date/Time-TO BE ENTERED AT DEPARTURE: 05/23/25 11:56 HPI General Mode of arrival: ambulatory. Date/Time Provider Initiated Documentation: 05/23/25 09:30. Limitations to Documentation: no limitations. Information obtained by: patient, RN notes reviewed and old records reviewed. HPI Narrative: 64-year-old female presents to the ER with a chief complaint of left flank pain that began upon wakening this morning. Radiates around to the left lower quadrant of her abdomen, she does endorse emesis x 1. She reports pain is constant. She does have a history of back problems but reports this is different. Endorses chills but no documented fever. Past medical history include high cholesterol hypertension GERD tobacco abuse, history of cholecystitis with cholecystectomy, gastritis arthritis other surgical history includes hip replacement on the left, carpal tunnel release. Related Data Home Medications ?Medication ?Instructions ?Recorded ?Confirmed fluticasone fur. 100 mcg-umeclid 1 inh inhalation DAILY #60 ea 02/19/22 12/15/24 62.5 mcg-vilant 25 mcg inhalat.powder (Trelegy Ellipta) fluocinonide 0.05 % topical 1 applic topical HS PRN 06/25/23 12/15/24 solution albuterol sulfate 2.5 mg/3 mL 2.5 mg (3 mL) inhalation QID PRN 09/27/23 12/15/24 (0.083 %) solution for nebulization shortness of breath or wheezing #180 mL albuterol sulfate 90 mcg/actuation 2 puff inhalation 6XD PRN 09/27/23 12/15/24 aerosol inhaler (ProAir HFA) shortness of breath or wheezing #18 grams atorvastatin 40 mg tablet 40 mg PO QPM #90 tabs 06/24/24 12/15/24 famotidine 20 mg tablet 20 mg PO DAILY #90 tabs 06/24/24 12/15/24 lisinopril 30 mg tablet 30 mg PO DAILY #90 tabs 06/24/24 12/15/24 omeprazole 40 mg capsule,delayed 40 mg PO DAILY #90 caps 06/24/24 12/15/24 release phenazopyridine 200 mg tablet 200 mg PO TID PRN pain 6 doses #6 12/15/24 12/15/24 (Pyridium) tabs ibuprofen 800 mg tablet 800 mg PO TID PRN pain #20 tabs 05/23/25 tamsulosin 0.4 mg capsule 0.4 mg PO QHS Kidney stone 7 days 05/23/25 #7 caps Previous Rx's ?Medication ?Instructions ?Recorded fluticasone fur. 100 mcg-umeclid 1 inh inhalation DAILY #60 ea 02/19/22 62.5 mcg-vilant 25 mcg inhalat.powder (Trelegy Ellipta) albuterol sulfate 2.5 mg/3 mL 2.5 mg (3 mL) inhalation QID PRN 09/27/23 (0.083 %) solution for nebulization shortness of breath or wheezing #180 mL albuterol sulfate 90 mcg/actuation 2 puff inhalation 6XD PRN 09/27/23 aerosol inhaler (ProAir HFA) shortness of breath or wheezing #18 grams atorvastatin 40 mg tablet 40 mg PO QPM #90 tabs 06/24/24 famotidine 20 mg tablet 20 mg PO DAILY #90 tabs 06/24/24 lisinopril 30 mg tablet 30 mg PO DAILY #90 tabs 06/24/24 omeprazole 40 mg capsule,delayed 40 mg PO DAILY #90 caps 06/24/24 release phenazopyridine 200 mg tablet 200 mg PO TID PRN pain 6 doses #6 12/15/24 (Pyridium) tabs ibuprofen 800 mg tablet 800 mg PO TID PRN pain #20 tabs 05/23/25 tamsulosin 0.4 mg capsule 0.4 mg PO QHS Kidney stone 7 days 05/23/25 #7 caps Allergies Allergy/AdvReac Type Severity Reaction Status Date / Time Influenza Virus Vaccines Allergy Severe stomach Verified 05/23/25 09:24 cramps oxycodone HCl (From Percocet) Allergy Unknown Skin Rash Verified 05/23/25 09:24 erythromycin base (From AdvReac Intermediate Diarrhea Verified 05/23/25 09:24 Erythrocin) banana AdvReac GI upset Verified 05/23/25 09:24 egg AdvReac GI upset Verified 05/23/25 09:24 lactose AdvReac GI upset Verified 05/23/25 09:24 General Stated Complaint: FlankPain JAYME: 3 Review of Systems All systems reviewed & are unremarkable except as noted in HPI and below Constitutional Constitutional: Reports as per HPI Gastrointestinal Gastrointestinal: Reports nausea and Reports vomiting Genitourinary Genitourinary: Reports as per HPI and Reports flank pain Exam Narrative Exam Narrative: Constitutional: Alert and oriented x3. Appears stated age. Normal body habitus. Head: Normocephalic, no trauma. Eyes: Pupils PERRL, Red reflex noted, EOM's intact. Eyelids symmetrical without lesions, discharge, or swelling. Resp: Lungs clear to auscultation bilaterally, no wheezes, rales, or rhonchi. Abdomen: Soft, non-distended, Normoactive bowel sounds all 4 quads. Nontender with palpation, does have some left CVA tenderness. Musculoskeletal: Normal gait, Moves all 4 extremities without difficulty. Skin: No suspicious rashes or lesions. Capillary refill less than 2 sec. Neurologic: Cranial nerves II-XII intact. Alert and oriented x 3. Motor: No deficits noted. Hematologic/Lymphatic: No ecchymosis, no lymphadenopathy. Course Vital Signs Vital signs: Vital Signs Temperature 36.6 C 05/23/25 09:22 Pulse 73 05/23/25 09:22 Respiratory Rate 16 05/23/25 09:22 Blood Pressure 190/92 H 05/23/25 09:22 Pulse Oximetry 97 05/23/25 09:22 Temperature 36.6 C 05/23/25 09:22 Temperature Source Oral 05/23/25 09:22 Pulse 73 05/23/25 09:22 Respiratory Rate 16 05/23/25 09:22 Blood Pressure 190/92 H 05/23/25 09:22 Blood Pressure Position Sitting 05/23/25 09:22 Pulse Oximetry 97 05/23/25 09:22 Oxygen Delivery Method Room Air 05/23/25 09:22 Oxygen Flow Rate 0 05/23/25 09:22 Pain Level 10 05/23/25 09:22 Medical Decision Making 64-year-old female presents to the ER with a chief complaint of left flank pain that began upon wakening this morning. Radiates around to the left lower quadrant of her abdomen, she does endorse emesis x 1. She reports pain is constant. She does have a history of back problems but reports this is different. Endorses chills but no documented fever. Past medical history include high cholesterol hypertension GERD tobacco abuse, history of cholecystitis with cholecystectomy, gastritis arthritis other surgical history includes hip replacement on the left, carpal tunnel release. Patient did receive 1 g of ceftriaxone IV piggyback here. 1106: Spoke with Dr. Yan with urology who does not recommend at this time for transfer or urgent consult to tertiary facility. He does recommend treating this like a normal kidney stone. Urology will follow-up on the culture results. Will send patient home with tamsulosin and discussed the kidney stone and strict return instructions to return if any worsening fever, worsening pain not relieved by Tylenol or ibuprofen or vomiting. I feel this is reasonable as patient has no fever no leukocytosis urinalysis shows small leukocytes 10-20 RBCs 5-10 WBCs. No nitrates few bacteria the urine culture was ordered. ED bar staff talking to lab regarding this. Patient discharged in hemodynamically stable condition. This text was generated using [employer] dictation system, please disregard any oddities of phrase or misspellings. Medical Records Medical records reviewed: Yes I reviewed the patient's medical records. Imaging Data Radiologic Study: Imaging: CT Scan Radiologist's impression: COMPARISON: MR ABDOMEN WO 07/01/2024 4:43 PM FINDINGS: Liver: There is a diffuse decrease in hepatic parenchymal density, consistent with fatty infiltration. Gallbladder and biliary ducts: There has been a cholecystectomy. Pancreas: Normal. No ductal dilation. Spleen: Normal. No splenomegaly. Adrenal glands: Normal. No mass. Kidneys and ureters: Simple cyst in the interpolar region of the left kidney measuring 1.6 cm. There is no evidence of hydronephrosis. There is a 4 mm stone in the upper aspect of the left renal pelvis with mild dilatation of the left upper renal calyx. There is left perinephric fat stranding. Stomach and bowel: Moderate diverticulosis is present in the distal colon. Appendix: No evidence of appendicitis. Intraperitoneal space: Unremarkable. No free air. No significant fluid collection. Vasculature: There are numerous benign phleboliths in the pelvis. Lymph nodes: Unremarkable. No enlarged lymph nodes. Urinary bladder: Unremarkable as visualized. Reproductive: Unremarkable as visualized. Bones/joints: There has been a right total hip arthroplasty. There are mild degenerative changes in the left hip joint. There are mild degenerative changes of the sacroiliac joints. The pubic symphysis demonstrates mild degenerative changes. The lumbar spine demonstrates mild degenerative changes at multiple levels. Soft tissues: Unremarkable. IMPRESSION: Left perinephric fat stranding with mild dilatation of the upper pole calyx that might be related to ascending infection versus the 4 mm stone. Thank you for allowing us to participate in the care of your patient. Dictated and Authenticated by: cT Pimentel MD Lab Data Lab results reviewed: Yes I reviewed the patient's lab results. Labs: Laboratory Tests Range/Units 05/23/25 05/23/25 09:31 09:58 WBC (4.4-10.8) 10^3/uL 7.80 RBC (3.93-5.22) 10^6/uL 4.81 Hgb (11.2-15.7) g/dL 15.0 Hct (36.0-46.0) % 45.0 MCV (80-95) fL 94 MCH (27.0-33.0) pg 31.2 MCHC (32.0-36.0) % 33.3 RDW (11.7-14.6) % 12.6 Plt Count (130-400) 10^3/uL 277 MPV (8.0-11.0) fL 10.6 Immature Gran % % 0.3 Neutrophils % % 64.8 Lymphocytes % % 24.5 Monocytes % % 8.1 Eosinophils % % 1.9 Basophils % % 0.4 Nucleated RBC % (0.0-0.3) % 0.0 Absolute Neutrophils (1.2-6.7) 10^3/uL 5.06 Absolute Lymphocytes (1.2-3.4) 10^3/uL 1.91 Absolute Monocytes (0.1-0.8) 10^3/uL 0.63 Absolute Eosinophils (0.0-0.7) 10^3/uL 0.15 Absolute Basophils (0.0-0.2) 10^3/uL 0.03 Sodium (136-145) mmol/L 144 Potassium (3.5-5.1) mmol/L 3.7 Chloride (98-107) mmol/L 106 Carbon Dioxide (21.0-32.0) mmol/L 31.6 Anion Gap (3-11) mmol/L 6.4 BUN (7-18) mg/dL 11 Creatinine (0.55-1.02) mg/dL 0.8 Est GFR (CKD-EPI 2020) (mL/min/1.73m2) 81.72 Glucose (74-106) mg/dL 116 H Calcium (8.5-10.1) mg/dL 9.1 Total Bilirubin (0.2-1.0) mg/dL 0.4 AST (15-37) U/L 15 ALT (14-59) U/L 30 Alkaline Phosphatase (46-116) U/L 99 Total Protein (6.4-8.2) g/dL 7.2 Albumin (3.4-5.0) g/dL 3.9 Urine Color (Yellow) Yellow Urine Clarity (Clear) Sl Cloudy Urine pH (5-8) 6.5 Ur Specific [place] (1.005-1.025) 1.015 Urine Protein (Neg-Trace) mg/dL Trace Urine Ketones (Negative) mg/dL Negative Urine Blood (Negative) Large H Urine Nitrite (Negative) Negative Urine Bilirubin (Negative) Negative Urine Urobilinogen (Up to 0.2) mg/dL 1.0 H Ur Leukocyte Esterase (Negative) Small H Urine RBC (0-2) HPF 10-20 H Urine WBC (0-5) HPF 5-10 Ur Epithelial Cells (Negative) HPF Moderate Urine Crystals (Negative) HPF Negative Urine Bacteria (Negative) HPF Few Urine Casts (Negative) LPF Negative Urine Mucus (Negative) Negative Ur Culture Indicated? No Urine Glucose (Negative) mg/dL Negative PFSH All Active Problems (Updated 05/23/25 @ 11:10 by Yelena Ricks NP) Calculus of left kidney (Acute) Cellulitis (Acute) Pain in left foot (Acute) Ingrown toenail (Acute) COPD (chronic obstructive pulmonary disease) (Chronic) Lung nodule seen on imaging study (Acute) Acute exacerbation of chronic obstructive pulmonary disease (Acute) Corns and callosities (Acute) Porokeratosis (Acute) Plantar verruca (Acute) Dermatitis (Acute ~12/2022) 01/23/23 DH Derm, Punch BX done 03/04/23 F/U Derm Pityriasis lichenoides (Acute) Lymphadenopathy (Acute) Pre-diabetes (Acute) Tinnitus, right (Acute) Dysfunction of right eustachian tube (Acute) SOB (shortness of breath) (Acute) Wheeze (Acute) Cough (Acute) Vertigo (Acute) Osteoarthritis of left hip (Acute) Left hip pain (Acute) Nausea (Acute) Lightheaded (Acute) Headache (Acute) Dizziness (Acute) Gastric peptic ulcer (Acute) Pt says she cannot tolerate any NSAIDs Asthmatic bronchitis (Acute) Cough (Acute) Sinusitis (Acute) Hemorrhoids (Acute) Diverticulosis (Acute) Trochanteric bursitis, right hip (Acute 03/31/18) Numbness of right anterior thigh (Acute 03/19/16) Chronic hip pain after total replacement of right hip joint (Acute 12/18/17) Adhesive capsulitis of left shoulder (Acute 04/23/16) Dysphagia (Acute) Nodule of right lung (Acute) Right apex 3.5 mm. f/u CT due October 2019 HTN (hypertension), benign (Acute) Tobacco use disorder (Acute) Osteoarthritis of right hip (Acute) Medical History Cholelithiasis with acute on chronic cholecystitis Tobacco abuse GERD (gastroesophageal reflux disease) Ulcer Multiple environmental allergies Hypertension Hyperlipidemia Restrictive lung disease Gastritis Arthritis Shoulder pain Surgical History S/P laparoscopic cholecystectomy History of tonsillectomy Hx of shoulder surgery S/P colonoscopy History of esophagogastroduodenoscopy (EGD) (~07/13/19) History of colonoscopy (~07/13/19) Tubular adenoma History of neck surgery History of carpal tunnel release History of hip replacement EGD - MAC (08/27/17) Family History Father Cancer of bone Leukemia Mother COPD (chronic obstructive pulmonary disease) Diabetes Hypertension Brother Lung cancer Stage 3 A Social History Smoking/Tobacco Use Status: Current every day Tobacco Type: cigarettes Smoking packs per day: 0.5 Smoking cigarettes per day: 10.0 Quit status: considering quitting Smoking risk assessment performed?: Yes Alcohol Intake: current Alcohol Intake frequency: holidays/special occasions only Alcohol type: beer Details: OCCASIONALLY Drug use: Never Substance use type: does not use Counseling given: No Adopted: No Household members: spouse Housing: house Number of Children: 3 number of grandchildren: 2 Communication Needs: Corrective Lenses Do you need help understanding health information?: Never current occupation: Disabled Pets and animals: Yes Pets and animals: cat(s) and bird(s) Sexually active: No Do you think of yourself as: straight/heterosexual Current gender identity: female What is your relationship status?: How often do you talk on the phone with friends or family?: three or more times per week How often do you get together with friends or relatives?: once per week How often do you attend alevism or yazdanism services?: decline to answer Panel score (0-1 are the most socially isolated patients): 2 What type of physical activity do you participate in: none Special stephanie needs: No Seatbelt use: always Drive 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
[2025-05-23] MEDS: Ondansetron O.D.T. 4 MG TABEF PO (09:48)
[2025-05-23 09:49] LABS: Abs Immature Grans 0.02 10^3/uL (0.0-0.06); HCT 45.0 % (36.0-46.0); HGB 15.0 g/dL (11.2-15.7); Immature Grans % 0.3 %; MCH 31.2 pg (27.0-33.0); MCHC 33.3 % (32.0-36.0); MCV 94 fL (80-95); MPV 10.6 fL (8.0-11.0); Platelet Count 277 10^3/uL (130-400); RBC 4.81 10^6/uL (3.93-5.22); RDW 12.6 % (11.7-14.6); RDW-SD 43.7 fL; WBC 7.80 10^3/uL (4.4-10.8)
[2025-05-23] MEDS: Ketorolac 30 MG/ML VIAL IVP (09:49)
[2025-05-23 10:09] LABS: ALT 30 U/L (14-59); AST 15 U/L (15-37); Albumin 3.9 g/dL (3.4-5.0); Alkaline Phosphatase 99 U/L (46-116); Anion Gap 6.4 mmol/L (3-11); BUN 11 mg/dL (7-18); Bilirubin, Total 0.4 mg/dL (0.2-1.0); CO2 31.6 mmol/L (21.0-32.0); Calcium 9.1 mg/dL (8.5-10.1); Chloride 106 mmol/L (98-107); Estimated GFR 81.72 (mL/min/1.73m2); Glucose 116 mg/dL (74-106); Potassium 3.7 mmol/L (3.5-5.1); Sodium 144 mmol/L (136-145); Total Protein 7.2 g/dL (6.4-8.2)
[2025-05-23 10:16] LABS: Glucose Negative (Negative)
[2025-05-23 10:31] LABS: C & S Indicated? No
--- NOTE | 2025-05-23 10:35 | DI.VRAD_ITS ---
PROCEDURE INFORMATION: Exam: CT Abdomen And Pelvis Without Contrast Exam date and time: 05/23/2025 9:59 AM Age: 64 years old Clinical indication: Other: Left flank pain, vomiting TECHNIQUE: Imaging protocol: Computed tomography of the abdomen and pelvis without contrast. COMPARISON: MR ABDOMEN WO 07/01/2024 4:43 PM FINDINGS: Liver: There is a diffuse decrease in hepatic parenchymal density, consistent with fatty infiltration. Gallbladder and biliary ducts: There has been a cholecystectomy. Pancreas: Normal. No ductal dilation. Spleen: Normal. No splenomegaly. Adrenal glands: Normal. No mass. Kidneys and ureters: Simple cyst in the interpolar region of the left kidney measuring 1.6 cm. There is no evidence of hydronephrosis. There is a 4 mm stone in the upper aspect of the left renal pelvis with mild dilatation of the left upper renal calyx. There is left perinephric fat stranding. Stomach and bowel: Moderate diverticulosis is present in the distal colon. Appendix: No evidence of appendicitis. Intraperitoneal space: Unremarkable. No free air. No significant fluid collection. Vasculature: There are numerous benign phleboliths in the pelvis. Lymph nodes: Unremarkable. No enlarged lymph nodes. Urinary bladder: Unremarkable as visualized. Reproductive: Unremarkable as visualized. Bones/joints: There has been a right total hip arthroplasty. There are mild degenerative changes in the left hip joint. There are mild degenerative changes of the sacroiliac joints. The pubic symphysis demonstrates mild degenerative changes. The lumbar spine demonstrates mild degenerative changes at multiple levels. Soft tissues: Unremarkable. IMPRESSION: Left perinephric fat stranding with mild dilatation of the upper pole calyx that might be related to ascending infection versus the 4 mm stone. Dictated and Authenticated by: Tc Pimentel MD. Orderin Millicent Kirk MD
[2025-05-23] MEDS: Ondansetron O.D.T. 4 MG TABEF, 3 TABS/BTL PO (11:21)
[2025-05-23] MEDS: cefTRIAXone 1 GM/50 ML BAG IVPB (11:22)
[2025-05-23] MEDS: Tamsulosin 0.4 MG CAPCR PO (11:22)
[2025-05-23 11:46] VITALS: BP 156/70; PULSE 78; RESP 16; TEMP 36.6; O2SAT 98
== END 2025-05-23 11:56 | disposition home or self-care (01) ==
PROVIDERS: Emergency Provider Registered Nurse Emergency; PCP Nurse Practitioner
DX: N20.0 Calculus of kidney (principal); R11.10 Vomiting, unspecified; I10 Essential (primary) hypertension
CPT/HCPCS: 99285; 99284; 96375; 80053; 96365; 74176; 81003; 81015; 85025; 87086; J0696; J1885

== ENCOUNTER → 2025-06-21 14:09 | Outpatient (BNVA) | payer MEDICARE, MEDICAID, SELFPAY | PROVIDERS: PCP Nurse Practitioner; Referring Provider Nurse Practitioner; Visit Provider Urology | DX: N20.0 Calculus of kidney (principal) | CPT/HCPCS: 99215 ==

== ENCOUNTER 2025-07-06 11:36 | Outpatient (CLI) | payer MEDICARE, MEDICAID, SELFPAY ==
--- NOTE | 2025-07-06 06:15 | DI.US_ITS ---
Exam(s) US RENAL EXAM: US RENAL CLINICAL HISTORY: ? hydronephrosis,CALCULUS LT KIDNEY,N20.0. TECHNIQUE: Concepcion scale imaging and color doppler were used. COMPARISON: CT CT RENAL COLIC WO from 05/23/2025 FINDINGS: Right kidney: 10.9cm Echogenicity: Normal Hydronephrosis: No Cyst or mass: No Nephrolithiasis: No Left kidney: 11.9cm Echogenicity: Normal Hydronephrosis: No Cyst or mass: 13 millimeter cyst lower pole. 11 millimeter cyst mid left kidney. Calcification near upper pole measuring 4 millimeters. Nephrolithiasis: No Bladder:Normal. Both ureteral jets were visualized. Prevoid vol:446 cc Postvoid vol:62 cc IMPRESSION: No evidence of left hydronephrosis. 4 millimeter stone is noted near the upper pole. Incidental renal cysts. No follow-up is recommended. Elevated postvoid residual bladder volume. DATA REPOSITORY:
== END 2025-07-06 11:56 ==
PROVIDERS: PCP Nurse Practitioner Family; Visit Provider Urology
DX: N20.0 Calculus of kidney (principal)
CPT/HCPCS: 76770

== ENCOUNTER → 2025-07-14 09:30 | Outpatient (BNVA) | payer MEDICARE, MEDICAID, SELFPAY | PROVIDERS: PCP Nurse Practitioner Family; Referring Provider Nurse Practitioner; Visit Provider Nurse Practitioner Gerontology | DX: N20.0 Calculus of kidney (principal); R31.9 Hematuria, unspecified; R10.32 Left lower quadrant pain; R35.0 Frequency of micturition; R39.15 Urgency of urination | CPT/HCPCS: 99213; 81002 ==

== ENCOUNTER 2025-07-14 10:04 | Outpatient (REF) | payer MEDICARE, MEDICAID, SELFPAY | END 2025-07-14 10:05 | disposition home or self-care (01) | LOC: LBN 10:04 | PROVIDERS: PCP Nurse Practitioner Family; Visit Provider Nurse Practitioner Gerontology | DX: R30.0 Dysuria (principal) | CPT/HCPCS: 87086 ==

== ENCOUNTER 2025-07-29 07:01 | Day surgery (SDC) | payer MEDICARE, MEDICAID, SELFPAY ==
[2025-07-29] VITALS (16 sets, daily range): BP systolic 120–170; BP diastolic 72–97; PULSE 45–82; RESP 8–24; TEMP 36.2–36.5; O2SAT 93–98; BMI 26.7
--- NOTE | 2025-07-29 07:00 | DI.RAD_ITS ---
Exam(s) XR RETROGRADE IN OR EXAM: XR RETROGRADE IN OR CLINICAL HISTORY: left kidney stone. TECHNIQUE: 2D digital imaging was performed. COMPARISON: No exams were available for comparison FINDINGS: Fluoroscopy was provided during retrograde left side urologic procedure Left ureteral stent was placed See procedure report for details IMPRESSION: Radiation exposure index/cumulative dose:aditya Valderrama=6.8376mGy DATA REPOSITORY: RADIATION DOSE DELIVERED:
--- NOTE | 2025-07-29 07:02 | W.PM.HP.N ---
Date of service: 07/29/25 Time of Service: 08:36 Assessment and Plan Assessment and plan (1) Renal calculus, left: Status: Acute Assessment and plan: We will plan to do a cystoscopy and retrograde pyelogram to visualize where her stone might be. Based on the location of the stone, we will be prepared to do ureteroscopy and possible holmium laser lithotripsy of the stone. If were not able to access the stone, we will plan to place a ureteral stent to allow any edema to resolve and return to the operating room at a later date to complete the ureteroscopy. History of Present Illness History of Present Illness Chief Complaint: Left kidney stone Narrative: This is a 64-year-old woman who initially presented with left flank pain. On CT scan, she is found to have a stone that appeared to be obstructing just the left upper pole calyx. She is continued to have intermittent symptoms and has not passed her stone as far she is aware. She presents for cystoscopy, left retrograde pyelogram and possible ureteroscopy and holmium laser lithotripsy. She has no prior history of kidney stones. She has no known metabolic abnormalities such as gout or hyperparathyroidism. She has not had prior urologic surgery. Review of Systems Narrative: No fevers or chills No vision change or dysphasia No diabetes or thyroid COPD. No hemoptysis No chest pain or palpitations Hx PUD. No nausea, vomiting, hepatitis, jaundice No seizures, strokes or peripheral neuropathy No bleeding disorders or anemia No gout PFSH All Active Problems (Updated 07/29/25 @ 08:45 by Mic Yan MD) Renal calculus, left (Acute) Cellulitis (Acute) Pain in left foot (Acute) Ingrown toenail (Acute) COPD (chronic obstructive pulmonary disease) (Chronic) Lung nodule seen on imaging study (Acute) Acute exacerbation of chronic obstructive pulmonary disease (Acute) Corns and callosities (Acute) Porokeratosis (Acute) Plantar verruca (Acute) Dermatitis (Acute ~12/2022) 01/23/23 DH Derm, Punch BX done 03/04/23 F/U Derm Pityriasis lichenoides (Acute) Lymphadenopathy (Acute) Pre-diabetes (Acute) Tinnitus, right (Acute) Dysfunction of right eustachian tube (Acute) SOB (shortness of breath) (Acute) Wheeze (Acute) Cough (Acute) Vertigo (Acute) Osteoarthritis of left hip (Acute) Left hip pain (Acute) Nausea (Acute) Lightheaded (Acute) Headache (Acute) Dizziness (Acute) Gastric peptic ulcer (Acute) Pt says she cannot tolerate any NSAIDs Asthmatic bronchitis (Acute) Cough (Acute) Sinusitis (Acute) Hemorrhoids (Acute) Diverticulosis (Acute) Dysphagia (Acute) Nodule of right lung (Acute) Right apex 3.5 mm. f/u CT due October 2019 HTN (hypertension), benign (Acute) Tobacco use disorder (Acute) Osteoarthritis of right hip (Acute) Adhesive capsulitis of left shoulder (Acute 04/23/16) Chronic hip pain after total replacement of right hip joint (Acute 12/18/17) Numbness of right anterior thigh (Acute 03/19/16) Trochanteric bursitis, right hip (Acute 03/31/18) Medical History (Updated 07/29/25 @ 08:45 by Mic Yan MD) Cholelithiasis with acute on chronic cholecystitis Tobacco abuse GERD (gastroesophageal reflux disease) Ulcer Multiple environmental allergies Hypertension Hyperlipidemia Restrictive lung disease Gastritis Arthritis Shoulder pain Surgical History S/P laparoscopic cholecystectomy History of tonsillectomy Hx of shoulder surgery S/P colonoscopy History of esophagogastroduodenoscopy (EGD) (~07/13/19) History of colonoscopy (~07/13/19) Tubular adenoma History of neck surgery discectomy ~10 years ago History of carpal tunnel release History of hip replacement EGD - MAC (08/27/17) Family History Father Cancer of bone Leukemia Mother COPD (chronic obstructive pulmonary disease) Diabetes Hypertension Brother Lung cancer Stage 3 A Social History Smoking/Tobacco Use Status: Current every day Tobacco Type: cigarettes Smoking packs per day: 0.5 Smoking cigarettes per day: 10.0 Quit status: considering quitting Smoking risk assessment performed?: Yes Alcohol Intake: current Alcohol Intake frequency: holidays/special occasions only Alcohol type: beer Details: OCCASIONALLY Drug use: Never Substance use type: does not use Counseling given: No Adopted: No Household members: spouse Housing: house Number of Children: 3 number of grandchildren: 2 Communication Needs: Corrective Lenses Do you need help understanding health information?: Never current occupation: Disabled Pets and animals: Yes Pets and animals: cat(s) and bird(s) Sexually active: No Do you think of yourself as: straight/heterosexual Current gender identity: female What is your relationship status?: How often do you talk on the phone with friends or family?: three or more times per week How often do you get together with friends or relatives?: once per week How often do you attend jehovah's witness or druze services?: decline to answer Panel score (0-1 are the most socially isolated patients): 2 What type of physical activity do you participate in: none Special stephanie needs: No Seatbelt use: always 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 Working smoke detector in home: Yes Fire extinguisher in home: Yes Carbon monox detector in home: Yes Firearms in home: No Do you feel safe at home: Yes Do you feel safe in your relationship?: Yes Meds Allergies and Home Medications Allergies Allergy/AdvReac Type Severity Reaction Status Date / Time Influenza Virus Vaccines Allergy Severe stomach Verified 07/29/25 07:22 cramps oxycodone HCl (From Percocet) Allergy Unknown Skin Rash Verified 07/29/25 07:22 tamsulosin Allergy Hives Verified 07/29/25 07:22 erythromycin base (From AdvReac Intermediate Diarrhea Verified 07/29/25 07:22 Erythrocin) banana AdvReac GI upset Verified 07/29/25 07:22 egg AdvReac GI upset Verified 07/29/25 07:22 lactose AdvReac GI upset Verified 07/29/25 07:22 Home Medications ?Medication ?Instructions ?Recorded ?Confirmed ?Type fluticasone fur. 100 mcg-umeclid 1 inh inhalation DAILY #60 ea 02/19/22 07/29/25 Rx 62.5 mcg-vilant 25 mcg inhalat.powder (Trelegy Ellipta) albuterol sulfate 2.5 mg/3 mL 2.5 mg (3 mL) inhalation QID PRN 09/27/23 07/29/25 Rx (0.083 %) solution for nebulization shortness of breath or wheezing #180 mL albuterol sulfate 90 mcg/actuation 2 puff inhalation 6XD PRN 09/27/23 07/29/25 Rx aerosol inhaler (ProAir HFA) shortness of breath or wheezing #18 grams atorvastatin 40 mg tablet 40 mg PO QPM #90 tabs 06/24/24 07/29/25 Rx ibuprofen 800 mg tablet 800 mg PO TID PRN pain #20 tabs 05/23/25 07/29/25 Rx lisinopril 30 mg tablet See Rx Instructions .Route 07/06/25 07/29/25 Rx .COMPLEX #90 tabs famotidine 20 mg tablet 20 mg PO HS 07/29/25 07/29/25 History omeprazole 40 mg capsule,delayed 40 mg PO HS 07/29/25 07/29/25 History release Exam Const General: cooperative Neck Neck: supple Resp Effort & Inspection: normal respiratory effort Auscultation: wheezes expiratory wheezes Cardio Rate: regular rate Rhythm: regular rhythm GI Palpation: soft and no masses Neuro General: patient alert, patient awake and patient oriented x3 Time Spent Time spent with Patient: <40 minutes Time was spent: other
[2025-07-29] MEDS: Lactated Ringers 1,000 ML 80 ML IV (07:50)
--- NOTE | 2025-07-29 08:06 | ANES.PREOP_ITS ---
General Info Date of Service Date Performed: 07/29/25 Height: 5 ft 2.5 in Weight: 67.4 kg Body Mass Index (BMI): 26.7 Surgical Procedure: Operation Date: 07/29/25 09:10 Proposed Procedure Side Surgeon p Cystoscopy/Retrograde/Ureteroscopy/Stone Manipulation Mic Yan MD Actual Procedure Side Surgeon p Cystoscopy/Retrograde/Ureteroscopy/Stone Manipulation Left Mic Yan MD Meds Allergies and Home Medications Allergies Allergy/AdvReac Type Severity Reaction Status Date / Time Influenza Virus Vaccines Allergy Severe stomach Verified 07/29/25 07:22 cramps oxycodone HCl (From Percocet) Allergy Unknown Skin Rash Verified 07/29/25 07:22 tamsulosin Allergy Hives Verified 07/29/25 07:22 erythromycin base (From AdvReac Intermediate Diarrhea Verified 07/29/25 07:22 Erythrocin) banana AdvReac GI upset Verified 07/29/25 07:22 egg AdvReac GI upset Verified 07/29/25 07:22 lactose AdvReac GI upset Verified 07/29/25 07:22 Home Medication ?Medication ?Instructions ?Recorded fluticasone fur. 100 mcg-umeclid 1 inh inhalation FILIBERTO Y #60 ea 02/19/22 62.5 mcg-vilant 25 mcg inhalat.powder (Trelegy Ellipta) albuterol sulfate 2.5 mg/3 mL 2.5 mg (3 mL) inhalation QID PRN 09/27/23 (0.083 %) solution for nebulization shortness of breat h or wheezing #180 mL albuterol sulfate 90 mcg/actuation 2 puff inhalation 6 XD PRN 09/27/23 aerosol inhaler (ProAir HFA) shortness of breath or wh eezing #18 grams atorvastatin 40 mg tablet 40 mg PO QPM #90 tabs ibuprofen 800 mg tablet 800 mg PO TID PRN pain #20 t abs 05/23/25 lisinopril 30 mg tablet See Rx Instructions .Route 0 07/06/25 .COMPLEX #90 tabs famotidine 20 mg tablet 20 mg PO HS 07/29/25 omeprazole 40 mg capsule,delayed 40 mg PO HS 07/29/25 release Current Visit Medications: Current Medications Generic Name Dose Route Start Last Admin Trade Name Freq PRN Reason Stop Dose Admin Ringer's Solution 1,000 mls @ 80 mls/hr 07/29/25 06:00 07/29/25 07:50 IV 07/29/25 23:59 80 mls/hr INFUSION KIRSTY Administration Cefazolin Sodium/Dextrose 2 gm in 50 mls @ 100 mls/hr 07/29/25 06:00 Ancef Duplex IVPB 07/29/25 23:59 PREOP KIRSTY IV Miscellaneous Supplies 1 each 07/29/25 06:00 Iv Access IV 07/29/25 23:59 DIRECTED KIRSTY Sodium Chloride 0 ml 07/29/25 06:00 Normal Saline Flush 10 Ml Syr IV 07/29/25 23:59 PRN PRN Sodium Chloride 0 ml 07/29/25 06:00 Normal Saline 10 Ml Vial IJ 07/29/25 23:59 DIRECTED PRN Sterile Water 0 ml 07/29/25 06:00 Water,Injection,Sterile 10 Ml Vial IJ 07/29/25 23:59 DIRECTED PRN PFSH Active Problems Active Problems: Problem Status Onset Code Cellulitis Acute L03.90 Pain in left foot Acute M79.672 Ingrown toenail Acute L60.0 COPD (chronic obstructive pulmonary disease) Chronic J44.9 Lung nodule seen on imaging study Acute R91.1 Acute exacerbation of chronic obstructive pulmonary disease Acute J44.1 Corns and callosities Acute L84 Porokeratosis Acute Q82.8 Plantar verruca Acute B07.0 Dermatitis Acute ~12/2022 L30.9 Pityriasis lichenoides Acute L41.0 Lymphadenopathy Acute R59.1 Pre-diabetes Acute R73.03 Tinnitus, right Acute H93.11 Dysfunction of right eustachian tube Acute H69.81 SOB (shortness of breath) Acute R06.02 Wheeze Acute R06.2 Cough Acute R05.9 Vertigo Acute R42 Osteoarthritis of left hip Acute M16.12 Left hip pain Acute M25.552 Nausea Acute R11.0 Lightheaded Acute R42 Headache Acute R51.9 Dizziness Acute R42 Gastric peptic ulcer Acute K25.9 Asthmatic bronchitis Acute J45.909 Cough Acute R05 Sinusitis Acute J32.9 Hemorrhoids Acute K64.9 Diverticulosis Acute K57.90 Dysphagia Acute R13.10 Nodule of right lung Acute R91.1 HTN (hypertension), benign Acute I10 Tobacco use disorder Acute F17.200 Osteoarthritis of right hip Acute M16.11 Adhesive capsulitis of left shoulder Acute 04/23/16 M75.02 Chronic hip pain after total replacement of right hip joint Acute 12/18/17 M25.551, G89.29, Z96.641 Numbness of right anterior thigh Acute 03/19/16 R20.8 Trochanteric bursitis, right hip Acute 03/31/18 M70.61 Medical History Medical History Cholelithiasis with acute on chronic cholecystitis Tobacco abuse GERD (gastroesophageal reflux disease) Ulcer Multiple environmental allergies Hypertension Hyperlipidemia Restrictive lung disease Gastritis Arthritis Shoulder pain Surgical History Surgical History S/P laparoscopic cholecystectomy History of tonsillectomy Hx of shoulder surgery S/P colonoscopy History of esophagogastroduodenoscopy (EGD) (~07/13/19) History of colonoscopy (~07/13/19) Tubular adenoma History of neck surgery discectomy ~10 years ago History of carpal tunnel release History of hip replacement EGD - MAC (08/27/17) Tobacco Smoking/Tobacco Use Status: Current every day Tobacco Type: cigarettes Smoking packs per day: 0.5 Smoking cigarettes per day: 10.0 Passive smoking exposure: Yes Alcohol Alcohol Intake: current Alcohol intake frequency: holidays/special occasions only Alcohol type: beer Details: OCCASIONALLY Substance Use Substance use: Never Substance use type: does not use Vital Signs and Lab Results Vital Signs Most Recent Vital Signs in EMR: Most Recent Vital Signs Temp Pulse Resp BP Pulse Ox 36.2 C L 76 16 156/97 H 96 07/29/25 07:10 07/29/25 07:10 07/29/25 07:10 07/29/25 07:10 07/29/25 07:10 Imaging and Studies Imaging and Studies Study information below may be from another EMR and interpreted by another provider. Please see original notes in EMR for more complete details. EKG Summary: 07/21: sinus. Stress Test Summary: 07/13: no defects noted. LVEF 78%. Pulmonary Function Summary: 02/11: mild restrictive lung dz, mild diffusion defect. Anesthesia Assessment and Plan Anesthesia History Personal History: No History of Anesthesia Complications Family History: No Family History of Anesthesia Complications Exercise Tolerance Exercise Tolerance: Metabolic Equivalents>4 Cardiac & Pulmonary Exam Cardiac Exam: Normal S1/S2 Heart Sounds Pulmonary Exam: Clear Bilateral Breath Sounds Implantable Cardiac Device Does patient have a Pacemaker or an ICD?: No Airway Exam Known Difficult Airway: No Mallampati Class: 3 Mouth Opening: Normal (> 3cm) Thyromental Distance: Greater than 3 cm Neck Range of Motion: Full ROM Neck Circumference: Normal Teeth Condition: Removable Dentures/Plates Upper and Edentulous ASA Classification ASA Score: ASA 2 Emergency Case?: No NPO Status NPO Status: NPO Clears >2 hours, Solids >8 hours Anesthesia Plan Resuscitation Status: Full Code Anesthesia Technique: General Anesthesia Airway Planned: LMA Monitors Used: Standard Monitors Preoperative Comments:: 64 yo for cysto. Sig PMHx: HTN (lisinopril), COPD (albuterol, trelegy. breathing feels good today), lung nodule, GERD (omeprazole. states reasonable control. Denies HOB with elevation, waking up hoarse or frequent reflux symptoms. Took her omeprazole last night), preDM, Current smoker (chronic cough), occ EtOH ECG: sinus. Stress: EF 78%, no perfusion defects. PFT: mild restrictive. Previous Anes: - kamla, easy mask, cochran 2 grade 1, no issues. - EGD/colo, prop, topical lido, natural airway, no issues. - EGD, prop, natural airway, no issues. - shoulder, LMA 4, no issues.
[2025-07-29] MEDS: ceFAZolin 2 GM/50 ML BAG IVPB (09:10)
[2025-07-29] MEDS: Lidocaine 2% Jelly 11 ML SYR (09:17)
[2025-07-29] MEDS: Omnipaque 300 MG/ML 50 ML BTL (09:18)
--- NOTE | 2025-07-29 10:15 | W.PM.DSUDISC ---
Date of service: 07/29/25 Discharge Plan Disposition Patient Disposition: Home Condition: Stable Discharge Details Reason For Visit: ureteroscopy and treatment of stone Attending Provider: Mic Yan Primary Care Provider: Kaitlin Ulloa Home Meds and New Rx's Prescriptions: No Action albuterol sulfate [ProAir HFA] 90 mcg/actuation HFA aerosol inhaler 2 puff inhalation 6XD PRN (Reason: shortness of breath or wheezing) Qty: 18 12RF albuterol sulfate 2.5 mg /3 mL (0.083 %) solution for nebulization 2.5 mg IH QID PRN (Reason: shortness of breath or wheezing) Qty: 180 3RF atorvastatin 40 mg tablet 40 mg PO QPM Qty: 90 3RF Trelegy Ellipta 100-62.5-25 mcg blister with device 1 inh inhalation DAILY Qty: 60 5RF lisinopril 30 mg tablet See Rx Instructions .ROUTE .COMPLEX Qty: 90 3RF Dose Instruction: TAKE ONE TABLET BY MOUTH EVERY DAY Rx Instructions: TAKE ONE TABLET BY MOUTH EVERY DAY omeprazole 40 mg capsule,delayed release(DR/EC) 40 mg PO HS famotidine 20 mg tablet 20 mg PO HS ibuprofen 800 mg tablet 800 mg PO TID MDD 3200mg PRN (Reason: pain) Qty: 20 0RF Rx Instructions: Take 1 tablet by mouth 3 times daily with food as needed Discharge Instructions Additional Instructions: There is no need to strain your urine Your stone has been treated and removed, but I did place a ureteral stent to offset the swelling caused during the surgery. My office will contact you to make arrangements to remove your stent (can be done either in operating room or in the office) As long as the stent is in place, you may see blood in the urine, you may urinate more frequently than usual and have discomfort when you urinate. All of these symptoms should improve 3 to 5 days after the stent is removed Activity:: Activity as Tolerated Shower/Bathe:: 24 hours Diet:: As Tolerated Discharge Orders Discharge Orders: Discharge Order (Routine); Ordered 07/29/25 Ordered By: Mic Yan DS: Diagnosis Discharge Diagnosis (1) Renal calculus, left: Status: Acute
--- NOTE | 2025-07-29 10:19 | W.PM.OP ---
Operative Note Operative Note PRE-OP DIAGNOSIS: Left renal stone POST-OP DIAGNOSIS: other (Left ureteral stone) PROCEDURE: Cystoscopy, left retrograde pyelogram, left flexible and semirigid ureteroscopy, holmium laser lithotripsy of left ureteral stone, extraction of stone fragments, insert left ureteral stent SURGEON: Mic Yan ANESTHESIA TYPE: Local By Surgeon and General LMA/ETT Refer to Anesthesia Record ESTIMATED BLOOD LOSS: 5 PATHOLOGY: other (stone fragments for chemical analysis) COMPLICATIONS: None Patient was transported to: PACU Patient's condition: stable Implants: 4.8 [place] by 22 to 30 cm left ureteral stent Indications: This is a 64-year-old woman who was originally seen for left-sided flank pain. She was found to have a stone in the left upper pole of her kidney. She was treated conservatively but her symptoms persisted. Follow-up her renal ultrasound showed no hydronephrosis but because of her persistent symptoms, she presents now for possible stone manipulation Findings: renal stone migrated to left distal ureter Procedure Description: The patient was given IV antibiotics and brought to the operating room on 07/29/2025. After successful induction of general anesthesia, she was placed in the dorsal lithotomy position. Her genitalia was prepped and draped. 2% Xylocaine jelly was instilled into the urethra. A 22 [place] rigid cystoscope was passed through the urethra into the bladder. The bladder was inspected with a 30 degree lens. Both ureteral orifices appeared normal with no blood coming from either side. The left orifice was cannulated with a 5 [place] access catheter and a retrograde pyelogram was obtained by injecting Omnipaque through the access catheter under fluoroscopic guidance. No specific filling defects were identified. I then passed a guidewire through the lumen of the access catheter and removed the access catheter. I then passed a dual-lumen catheter and positioned a second wire. We chose one of the wires as a working wire and the other as a safety wire. We removed the dual-lumen catheter and passed a ureteral access sheath over the working wire leaving the safety wire in place. I began by running the flexible ureteroscope through the access sheath up to the previous location of the stone. I visualized each of the calyces and found known stones within the kidney. I then began withdrawing the scope and inspected the ureter. We identified her stone in the left distal ureter. The stone appeared attached to the ureteral wall. I then switched to the semirigid ureteroscope and advanced the scope up to the level of the stone. The stone was treated with a 365 holmium laser fiber. We used a combination of fragmentation settings and dusting settings. As the stone broke, we extracted the stone fragments using a Second Decimal stone basket. All stone fragments were sent to the laboratory for chemical analysis Once all stones had been removed, we removed the ureteroscope and placed a 4.8 [place] variable length stent. We advanced the stent in the proximal end was seen in one of the midpole calyces and the distal end was curled within the bladder. The positioning of the stent was confirmed both fluoroscopically and cystoscopically. The safety string was removed from the stent before it was placed. The patient tolerated this procedure well with no complications. She was taken to the recovery room in stable condition. Date of Procedure: 07/29/25
[2025-07-29] MEDS: fentaNYL 100 MCG/2 ML VIAL IVP ×2 (10:31→10:42)
[2025-07-29] MEDS: Phenazopyridine 200 MG TAB PO (11:16)
--- NOTE | 2025-07-29 11:24 | W.ANESPOSTOP ---
Postoperative Evaluation Date, Time and Location Date Performed: 07/29/25 Time Performed: 11:24 Patient Location: Day Surgery Unit Vital Signs Most Recent Imported Vital Signs: Most Recent Vital Signs Temp Pulse Resp BP Pulse Ox 36.4 C L 57 L 15 130/73 97 07/29/25 11:00 07/29/25 11:00 07/29/25 11:00 07/29/25 11:00 07/29/25 11:00 Pain Score Most Recent Pain Score: Most Recent Pain Score Pain Level 0 07/29/25 11:00 Assessment Mental Status: Awake (Alert & Oriented to Patient Baseline) Airway and Respiratory Function: Patent airway with normal (patient baseline) respiratory exam Cardiovascular Function: Hemodynamically Stable Hydration Status: Adequately Hydrated Nausea & Vomiting: No Nausea or Vomiting Pain: Pain is tolerable per patient Peripheral Nerve Block: Patient did not receive a nerve block
== END 2025-07-29 11:45 | disposition home or self-care (01) ==
PROVIDERS: PCP Nurse Practitioner Family; Visit Provider Urology
PROC: (CPT 52356; principal; 2025-07-29 09:00)
DX: N20.0 Calculus of kidney (principal); I10 Essential (primary) hypertension; F17.210 Nicotine dependence, cigarettes, uncomplicated; K21.9 Gastro-esophageal reflux disease without esophagitis; E78.5 Hyperlipidemia, unspecified
CPT/HCPCS: 52356; 74420; 82365; J0131; J0690; J1100; J1885; J2003; J2405; J2704; J3010; Q9967

== ENCOUNTER → 2025-08-17 12:31 | Outpatient (BNVA) | payer MEDICARE, MEDICAID, SELFPAY | PROVIDERS: PCP Nurse Practitioner Family; Referring Provider Nurse Practitioner Family; Visit Provider Urology | DX: N20.0 Calculus of kidney (principal) | CPT/HCPCS: 81002; 52310 ==

== ENCOUNTER 2025-08-25 02:01 | Outpatient (CLI) | payer MEDICARE, MEDICAID, SELFPAY ==
[2025-08-25 12:11] LABS: Calculated LDL 101 mg/dL (<100); Cholesterol 167 mg/dL (<200); HDL Cholesterol 50 mg/dL (>or=50); Triglyceride 83 mg/dL (<150)
[2025-08-25 14:34] LABS: Hemoglobin A1C 6.1 % (<5.7)
== END 2025-08-25 02:02 | disposition home or self-care (01) ==
LOC: LBO 02:01
PROVIDERS: PCP Nurse Practitioner Family; Visit Provider Nurse Practitioner Family
DX: E78.5 Hyperlipidemia, unspecified (principal); R73.03 Prediabetes
CPT/HCPCS: 36415; 80061; 83036

== ENCOUNTER → 2025-09-29 01:00 | Outpatient (CLI) | payer MEDICARE, MEDICAID, SELFPAY ==
--- NOTE | 2025-09-29 06:15 | DI.US_ITS ---
Exam(s) US RENAL EXAM: US RENAL CLINICAL HISTORY: ? hydronephrosis,LT RENAL CALCULUS,N20.0. TECHNIQUE: Concepcion scale, color and spectral Doppler were used. COMPARISON: CT CT RENAL COLIC WO from 05/23/2025 US US RENAL from 07/06/2025 XA XR RETROGRADE IN OR from 07/29/2025 FINDINGS: Renal size in cm: Right: 10.7. Left: 11.8. Echogenicity: Normal. Hydronephrosis: No. Cyst or mass: Small simple cysts are seen on the left kidney. No follow-up is recommended. Nephrolithiasis: No evidence of nephrolithiasis or hydronephrosis. Other findings: There are 2 parenchymal echogenic foci. Bladder:Normal. Ureteral jets: Right: Visualized and unremarkable. Left: Visualized and unremarkable. Prevoid vol:123 cc Postvoid vol:1 cc Renal color flow: Symmetric and within normal limits. IMPRESSION: There is no evidence of hydronephrosis. DATA REPOSITORY:
--- NOTE | 2025-09-29 11:51 | DI.RAD_ITS ---
Exam(s) XR CHEST 2V PA LATERAL EXAM: XR CHEST 2V PA LATERAL CLINICAL HISTORY: sob/cough/pneumonia R06.02 TECHNIQUE: 2D digital imaging was performed of the chest. Two images were obtained. PA and lateral views were obtained. COMPARISON: CR XR CHEST 2V PA LATERAL from 08/15/2021 CR XR CHEST 2V PA LATERAL from 07/01/2024 FINDINGS: MEDIASTINUM: Normal. HEART: Normal. PULMONARY VASCULATURE: Normal. LUNGS: Clear. PLEURAL SPACE: No pleural effusion or pneumothorax. BONE:Within normal limits for the patient's age. OTHER FINDINGS:Normal. IMPRESSION: No acute pulmonary findings. DATA REPOSITORY: RADIATION DOSE DELIVERED:
== END ==
PROVIDERS: PCP Nurse Practitioner Family; Visit Provider Urology
DX: N20.0 Calculus of kidney (principal); R06.02 Shortness of breath
CPT/HCPCS: 76770; 71046